=== PATIENT | female | born 1940 | race Caucasian/White ===

== ENCOUNTER → 2016-12-29 | Outpatient (CLI) | payer MEDICARE, OTHER ==
--- NOTE | 2017-01-02 12:13 | XCELERA REPORT ---
[address] [address] Lower Extremity Arterial Evaluation Name: VAISHNAVI CHAVEZ Age: 76 yrs Gender: Female : 1940 Patient Status: Outpatient Patient Location: Study Date: 12/29/2016 11:23 AM Procedure: A color flow and duplex scan of the lower extremity arteries was performed bilaterally with velocity and waveform anaylsis. Ankle brachial indicies performed. Reason For Study: PVD I73.9 Ordering Physician: SONNY MARTÍNEZ Performed By: Mauro Yanez Measurements and Calculations Right Left RUCHING MACHINE OPERATOR PSV 168.5 168.5 cm/sec Prox PFA PSV -206.5 -109.1 cm/sec Prox SFA PSV 432.8 cm/sec Dist SFA PSV -106.9 -115.7 cm/sec Prox Pop A PSV 59.8 78.3 cm/sec Dist GERARDO PSV 56.6 60.9 cm/sec Dist EXECUTIVE RELATIONS SPECIALIST PSV 51.3 52.3 cm/sec Too Pedis PSV 54.1 45.2 cm/sec Right Side Arterial Evaluation Normal velocity, waveform and triphasic flow are present, in the Common Femoral artery. Then Biphasic with adequate velocity to the infrageniculate vessels. The ankle-brachial index is 0.96. 20-49 % stenosis is noted at the Femoral artery. Some sequential disease. Left Side Arterial Evaluation Normal velocity, waveform and triphasic flow are present, in the Common Femoral artery. Then Biphasic with adequate velocity in the Femoral. Distal Femoral artery stenosis, with velocity of 4.3 cms/sec. Monophasic with fairly good velocity in the infrageniculate vessels. The ankle-brachial index was not done. 50-99 % stenosis is noted at the Femoral artery. Interpretation Summary Moderate hemodynamically significant lesions in the right lower extremity only, on duplex imaging, at rest. Severe hemodynamically significant lesions in the left lower extremity only, on duplex imaging, at rest. : SONNY MARTÍNEZ > Max Mejia
== END ==
LOC: SP 11:00
PROVIDERS: ATTEND Internal Medicine
DX: I73.9 Peripheral vascular disease, unspecified (principal)
CPT/HCPCS: 93925

== ENCOUNTER → 2017-03-01 | Outpatient (CLI) | payer MEDICARE, OTHER ==
[2017-03-01 11:57] LABS: ABSOLUTE BASOPHILS # (AUTO) 0.1 10^3/uL (0.0-0.2); ABSOLUTE EOSINOPHILS # (AUTO) 0.2 10^3/uL (0.0-0.6); ABSOLUTE LYMPHOCYTES (AUTO) 2.4 10^3/uL (0.5-4.7); ABSOLUTE MONOCYTES (AUTO) 0.5 10^3/uL (0.1-1.4); ABSOLUTE NEUT (AUTO) 8.6 10^3/uL (1.7-8.2); BASOPHILS % (AUTO) 0.9 % (0-2); HEMOGLOBIN 9.9 g/dL (12.0-15.5); HGB HCT DIFFERENCE 0.7; LYMPHOCYTES % (AUTO) 20.1 % (13-45); MEAN CORPUSCULAR HEMOGLOBIN 31.2 pg (27.0-33.4); MEAN CORPUSCULAR HGB CONC 34.2 g/dL (32.0-36.0); MEAN CORPUSCULAR VOLUME 91 fl (80-97); MONOCYTES % (AUTO) 4.5 % (3-13); RED BLOOD COUNT 3.17 10^6/uL (3.72-5.28); RED CELL DISTRIBUTION WIDTH 13.4 % (11.5-14.0); SEGMENTED NEUTROPHILS % (AUTO) 72.5 % (42-78); WHITE BLOOD COUNT 11.9 10^3/uL (4.0-10.5)
[2017-03-01 12:22] LABS: ALANINE AMINOTRANSFERASE 27 U/L (9-52); ALBUMIN 3.7 g/dL (3.5-5.0); ALKALINE PHOSPHATASE 102 U/L (38-126); ANION GAP 11 (5-19); ASPARTATE AMINO TRANSFERASE 19 U/L (14-36); BILIRUBIN,DIRECT 0.3 mg/dL (0.0-0.4); BILIRUBIN,TOTAL 0.4 mg/dL (0.2-1.3); BLOOD UREA NITROGEN 20 mg/dL (7-20); CALCIUM 9.5 mg/dL (8.4-10.2); CARBON DIOXIDE 31 mmol/L (22-30); CHLORIDE 100 mmol/L (98-107); CREATININE RESULT 1.38 mg/dL (0.52-1.25); GLUCOSE 109 mg/dL (75-110); SODIUM 141.8 mmol/L (137-145); TOTAL PROTEIN 6.7 g/dL (6.3-8.2)
[2017-03-01 12:25] LABS: APPEARANCE,URINE SLIGHTLY-CLOUDY; BILIRUBIN,URINE NEGATIVE (NEGATIVE); GLUCOSE, URINE NEGATIVE (NEGATIVE); KETONES,URINE NEGATIVE (NEGATIVE); LEUKOCYTE ESTERASE,URINE NEGATIVE (NEGATIVE); NITRITE,URINE NEGATIVE (NEGATIVE); PROTEIN,URINE NEGATIVE (NEGATIVE); URINE SPECIFIC GRAVITY 1.012; UROBILINOGEN,URINE NEGATIVE mg/dL (<2.0)
[2017-03-02 12:38] LABS: CREATININE URINE 99.8 mg/dL (Not Estab.)
== END ==
LOC: LAB 10:39
PROVIDERS: ATTEND Internal Medicine Nephrology
DX: I12.9 Hypertensive chronic kidney disease with stage 1 through stage 4 chronic kidney disease, or unspecified chronic kidney disease (principal); N18.3 Chronic kidney disease, stage 3 (moderate); I50.9 Heart failure, unspecified; E11.9 Type 2 diabetes mellitus without complications
CPT/HCPCS: 36415; 80053; 81001; 82570; 82607; 84156; 84443; 85025

== ENCOUNTER → 2017-03-31 | Outpatient (CLI) | payer MEDICARE, OTHER | LOC: RAD 11:05 | PROVIDERS: ATTEND Internal Medicine Nephrology | DX: I12.9 Hypertensive chronic kidney disease with stage 1 through stage 4 chronic kidney disease, or unspecified chronic kidney disease (principal); N18.3 Chronic kidney disease, stage 3 (moderate); I50.9 Heart failure, unspecified; N28.1 Cyst of kidney, acquired | CPT/HCPCS: 76770 ==

== ENCOUNTER → 2017-06-10 | Outpatient (CLI) | payer MEDICARE, OTHER ==
[2017-06-10 11:38] LABS: HEMATOCRIT 31.8 % (36.0-47.0); HEMOGLOBIN 10.7 g/dL (12.0-15.5); HGB HCT DIFFERENCE 0.3; MEAN CORPUSCULAR HEMOGLOBIN 30.9 pg (27.0-33.4); MEAN CORPUSCULAR HGB CONC 33.6 g/dL (32.0-36.0); MEAN CORPUSCULAR VOLUME 92 fl (80-97); RED BLOOD COUNT 3.46 10^6/uL (3.72-5.28); RED CELL DISTRIBUTION WIDTH 14.2 % (11.5-14.0); WHITE BLOOD COUNT 11.2 10^3/uL (4.0-10.5)
[2017-06-10 13:17] LABS: ANION GAP 14 (5-19); BLOOD UREA NITROGEN 19 mg/dL (7-20); CALCIUM 10.3 mg/dL (8.4-10.2); CARBON DIOXIDE 28 mmol/L (22-30); CHLORIDE 109 mmol/L (98-107); CREATININE RESULT 1.36 mg/dL (0.52-1.25); GLUCOSE 137 mg/dL (75-110); POTASSIUM 4.6 mmol/L (3.6-5.0); SODIUM 150.9 mmol/L (137-145)
[2017-06-11 11:38] LABS: MICROALBUMIN URINE 65.5 ug/mL (Not Estab.)
[2017-06-13 14:39] LABS: A/G RATIO 1.1 (0.7-1.7); ALBUMIN 2 3.3 g/dL (2.9-4.4); ALPHA-1-GLOBULIN 2 0.2 g/dL (0.0-0.4); GAMMA GLOBULIN 0.8 g/dL (0.4-1.8); PROTEIN TOTAL SERUM 6.3 g/dL (6.0-8.5)
== END ==
LOC: LAB 11:09
PROVIDERS: ATTEND Internal Medicine Nephrology
DX: N18.3 Chronic kidney disease, stage 3 (moderate) (principal); E11.9 Type 2 diabetes mellitus without complications; I50.9 Heart failure, unspecified; D64.9 Anemia, unspecified
CPT/HCPCS: 36415; 80048; 82043; 82570; 82728; 83540; 83550; 84165; 84443; 85027

== ENCOUNTER → 2017-06-13 | Outpatient (CLI) | payer MEDICARE, OTHER ==
[2017-06-13 13:26] LABS: ANION GAP 9 (5-19); BLOOD UREA NITROGEN 16 mg/dL (7-20); CALCIUM 9.8 mg/dL (8.4-10.2); CARBON DIOXIDE 30 mmol/L (22-30); CHLORIDE 103 mmol/L (98-107); CREATININE RESULT 1.14 mg/dL (0.52-1.25); GLUCOSE 138 mg/dL (75-110); POTASSIUM 4.9 mmol/L (3.6-5.0); SODIUM 141.8 mmol/L (137-145)
== END ==
LOC: OD 12:06
PROVIDERS: ATTEND Internal Medicine Nephrology
DX: E87.0 Hyperosmolality and hypernatremia (principal)
CPT/HCPCS: 36415; 80048

== ENCOUNTER → 2017-07-25 | Outpatient (CLI) | payer MEDICARE, OTHER ==
[2017-07-25 15:05] LABS: HEMATOCRIT 32.5 % (36.0-47.0); HEMOGLOBIN 10.7 g/dL (12.0-15.5); HGB HCT DIFFERENCE -0.4; MEAN CORPUSCULAR HEMOGLOBIN 30.6 pg (27.0-33.4); MEAN CORPUSCULAR HGB CONC 32.9 g/dL (32.0-36.0); MEAN CORPUSCULAR VOLUME 93 fl (80-97); RED CELL DISTRIBUTION WIDTH 14.4 % (11.5-14.0); WHITE BLOOD COUNT 9.1 10^3/uL (4.0-10.5)
[2017-07-25 15:27] LABS: ANION GAP 10 (5-19); BLOOD UREA NITROGEN 20 mg/dL (7-20); CALCIUM 9.9 mg/dL (8.4-10.2); CARBON DIOXIDE 28 mmol/L (22-30); CHLORIDE 103 mmol/L (98-107); CREATININE RESULT 1.23 mg/dL (0.52-1.25); GLUCOSE 108 mg/dL (75-110); POTASSIUM 4.4 mmol/L (3.6-5.0); SODIUM 140.5 mmol/L (137-145)
== END ==
LOC: LAB 14:32
PROVIDERS: ATTEND Internal Medicine Nephrology
DX: D64.9 Anemia, unspecified (principal); I12.9 Hypertensive chronic kidney disease with stage 1 through stage 4 chronic kidney disease, or unspecified chronic kidney disease; E11.22 Type 2 diabetes mellitus with diabetic chronic kidney disease; N18.3 Chronic kidney disease, stage 3 (moderate)
CPT/HCPCS: 36415; 80048; 82607; 82728; 83540; 83550; 85027

== ENCOUNTER → 2017-09-22 | Outpatient (CLI) | payer MEDICARE, OTHER ==
[2017-09-22 13:47] LABS: HEMATOCRIT 33.2 % (36.0-47.0); HEMOGLOBIN 11.4 g/dL (12.0-15.5); MEAN CORPUSCULAR HEMOGLOBIN 31.1 pg (27.0-33.4); MEAN CORPUSCULAR HGB CONC 34.4 g/dL (32.0-36.0); MEAN CORPUSCULAR VOLUME 90 fl (80-97); RED BLOOD COUNT 3.67 10^6/uL (3.72-5.28); RED CELL DISTRIBUTION WIDTH 14.1 % (11.5-14.0); WHITE BLOOD COUNT 10.1 10^3/uL (4.0-10.5)
[2017-09-22 13:53] LABS: APPEARANCE,URINE CLOUDY; BILIRUBIN,URINE NEGATIVE (NEGATIVE); GLUCOSE, URINE NEGATIVE (NEGATIVE); KETONES,URINE NEGATIVE (NEGATIVE); LEUKOCYTE ESTERASE,URINE MODERATE (NEGATIVE); NITRITE,URINE NEGATIVE (NEGATIVE); PROTEIN,URINE 30 mg/dL (NEGATIVE); URINE SPECIFIC GRAVITY 1.024
[2017-09-22 14:08] LABS: ANION GAP 11 (5-19); BLOOD UREA NITROGEN 22 mg/dL (7-20); CALCIUM 10.1 mg/dL (8.4-10.2); CARBON DIOXIDE 31 mmol/L (22-30); CHLORIDE 101 mmol/L (98-107); GLUCOSE 93 mg/dL (75-110); POTASSIUM 4.9 mmol/L (3.6-5.0)
== END ==
LOC: LAB 13:20
PROVIDERS: ATTEND Physician Assistant Medical
DX: I12.9 Hypertensive chronic kidney disease with stage 1 through stage 4 chronic kidney disease, or unspecified chronic kidney disease (principal); N18.3 Chronic kidney disease, stage 3 (moderate); D64.9 Anemia, unspecified; E11.9 Type 2 diabetes mellitus without complications
CPT/HCPCS: 36415; 80048; 81001; 85027

== ENCOUNTER → 2017-11-24 | Outpatient (CLI) | payer MEDICARE, OTHER ==
[2017-11-24 14:17] LABS: HEMATOCRIT 33.2 % (36.0-47.0); HEMOGLOBIN 11.3 g/dL (12.0-15.5); MEAN CORPUSCULAR HEMOGLOBIN 31.5 pg (27.0-33.4); MEAN CORPUSCULAR VOLUME 93 fl (80-97); PLATELET COUNT 213 10^3/uL (150-450); RED BLOOD COUNT 3.58 10^6/uL (3.72-5.28); RED CELL DISTRIBUTION WIDTH 14.1 % (11.5-14.0); WHITE BLOOD COUNT 9.5 10^3/uL (4.0-10.5)
[2017-11-24 14:24] LABS: APPEARANCE,URINE SLIGHTLY-CLOUDY; BILIRUBIN,URINE NEGATIVE (NEGATIVE); COLOR,URINE YELLOW; GLUCOSE, URINE NEGATIVE (NEGATIVE); KETONES,URINE NEGATIVE (NEGATIVE); LEUKOCYTE ESTERASE,URINE TRACE (NEGATIVE); NITRITE,URINE NEGATIVE (NEGATIVE); PROTEIN,URINE NEGATIVE (NEGATIVE); URINE SPECIFIC GRAVITY 1.006; UROBILINOGEN,URINE NEGATIVE mg/dL (<2.0)
[2017-11-24 14:37] LABS: ANION GAP 10 (5-19); BLOOD UREA NITROGEN 16 mg/dL (7-20); CALCIUM 10.3 mg/dL (8.4-10.2); CARBON DIOXIDE 32 mmol/L (22-30); CHLORIDE 103 mmol/L (98-107); GLUCOSE 113 mg/dL (75-110); POTASSIUM 4.2 mmol/L (3.6-5.0); SODIUM 144.7 mmol/L (137-145)
== END ==
LOC: LAB 13:46
PROVIDERS: ATTEND Physician Assistant Medical
DX: E11.22 Type 2 diabetes mellitus with diabetic chronic kidney disease (principal); I12.9 Hypertensive chronic kidney disease with stage 1 through stage 4 chronic kidney disease, or unspecified chronic kidney disease; N18.3 Chronic kidney disease, stage 3 (moderate); D64.9 Anemia, unspecified
CPT/HCPCS: 36415; 80048; 81001; 85027

== ENCOUNTER → 2018-04-18 | Outpatient (CLI) | payer MEDICARE, OTHER ==
--- NOTE | 2018-04-18 14:29 | XCELERA REPORT ---
[address] [address] Lower Extremity Venous Evaluation Name: VAISHNAVI CHAVEZ Age: 78 yrs Gender: Female : 1940 Patient Status: Outpatient Patient Location: Study Date: 04/18/2018 12:00 PM Procedure: Color flow and duplex imaging of the veins of the left lower extremity as well as the right Common Femoral vein. Reason For Study: LLE SWELLING Ordering Physician: SONNY MARTÍNEZ Performed By: Keo Montes Right Sided Venous Evaluation The right common femoral vein is fully compressible. Spontaneous and phasic flow is present in the right common femoral vein. Left Sided Venous Evaluation Normal vessel filling wall to wall, compression and augmentation as well as Colour flow down to the infrageniculate veins. Interpretation Summary No duplex evidence of DVT or obstruction in the left lower extremity nor in the right Common Femoral vein. : SONNY MARTÍNEZ > Max Mejia
== END ==
LOC: SP 11:49
PROVIDERS: ATTEND Internal Medicine
DX: R22.42 Localized swelling, mass and lump, left lower limb (principal)
CPT/HCPCS: 93971

== ENCOUNTER → 2018-05-26 | Outpatient (CLI) | payer MEDICARE, OTHER ==
[2018-05-26 12:20] LABS: HEMATOCRIT 35.3 % (36.0-47.0); MEAN CORPUSCULAR HEMOGLOBIN 31.4 pg (27.0-33.4); MEAN CORPUSCULAR HGB CONC 33.9 g/dL (32.0-36.0); MEAN CORPUSCULAR VOLUME 93 fl (80-97); PLATELET COUNT 190 10^3/uL (150-450); RED BLOOD COUNT 3.82 10^6/uL (3.72-5.28); RED CELL DISTRIBUTION WIDTH 13.1 % (11.5-14.0); WHITE BLOOD COUNT 11.7 10^3/uL (4.0-10.5)
[2018-05-26 12:47] LABS: ANION GAP 13 (5-19); BLOOD UREA NITROGEN 18 mg/dL (7-20); CALCIUM 9.4 mg/dL (8.4-10.2); CARBON DIOXIDE 30 mmol/L (22-30); CHLORIDE 99 mmol/L (98-107); GLUCOSE 126 mg/dL (75-110); PHOSPHORUS 3.8 mg/dL (2.5-4.5); POTASSIUM 4.2 mmol/L (3.6-5.0); SODIUM 142.1 mmol/L (137-145)
[2018-05-26 12:47] LABS: APPEARANCE,URINE CLOUDY; BILIRUBIN,URINE NEGATIVE (NEGATIVE); COLOR,URINE YELLOW; GLUCOSE, URINE NEGATIVE (NEGATIVE); KETONES,URINE NEGATIVE (NEGATIVE); LEUKOCYTE ESTERASE,URINE TRACE (NEGATIVE); NITRITE,URINE NEGATIVE (NEGATIVE); PROTEIN,URINE NEGATIVE (NEGATIVE); URINE SPECIFIC GRAVITY 1.017
== END ==
LOC: LAB 11:55
PROVIDERS: ATTEND Internal Medicine Nephrology
DX: I12.9 Hypertensive chronic kidney disease with stage 1 through stage 4 chronic kidney disease, or unspecified chronic kidney disease (principal); N18.3 Chronic kidney disease, stage 3 (moderate); D64.9 Anemia, unspecified; E11.9 Type 2 diabetes mellitus without complications
CPT/HCPCS: 36415; 80048; 81001; 83970; 84100; 85027

== ENCOUNTER 2018-08-20 10:16 | Inpatient (IN) | payer MEDICARE, OTHER ==
--- NOTE | 2018-08-20 10:34 | ER Document Report ---
ED Medical Screen (RME) - General Chief Complaint: Breathing Difficulty Stated Complaint: DIFFICULTY BREATHING/COUGH Time Seen by Provider: 08/20/18 10:30 Mode of Arrival: Wheelchair Information source: Patient, Relative, [facility] Records Notes: 78-year-old female with COPD on home O2 at night 3 L (still using tobacco), hypertension, chronic kidney disease, previous history of DVT, on Xarelto, presents with complaint of shortness of breath, productive cough, myalgia that started 1 day prior to arrival. I have greeted and performed a rapid initial assessment of this patient. A comprehensive ED assessment and evaluation of the patient, analysis of test results and completion of medical decision making process we will be contacted by additional ED providers. PHYSICAL EXAMINATION: Vital signs reviewed-tachypneic GENERAL: Ill-appearing, mild distress LUNGS: Dyspneic, coarse breath sounds, wheezing NEUROLOGICAL: Alert, awake TRAVEL OUTSIDE OF THE [place] IN LAST 30 DAYS: No - HPI Onset: Yesterday Onset/Duration: Sudden Quality of pain: Burning Severity: Moderate Associated Symptoms: Cough (productive), Hurts to breath, Shortness of breath. denies: Fever Exacerbated by: Movement, Walking, Coughing, Deep breathing Relieved by: Denies Similar symptoms previously: Yes Recently seen / treated by doctor: No - Related Data Smoking: Cigarettes Frequency of alcohol use: None Drug Abuse: None Allergies/Adverse Reactions: No Known Allergies Allergy (Verified 10/31/16 09:22) Past Medical History - Past Medical History Cardiac Medical History: Reports: Hx DVT, Hx Hypercholesterolemia, Hx Hypertension - medicated Denies: Hx Heart Attack Pulmonary Medical History: Reports: Hx COPD Denies: Hx Asthma Neurological Medical History: Denies: Hx Cerebrovascular Accident, Hx Seizures GI Medical History: Reports: Hx Gastroesophageal Reflux Disease. Denies: Hx Hepatitis, Hx Hiatal Hernia, Hx Ulcer Psychiatric Medical History: Reports: Hx Depression Infectious Medical History: Denies: Hx Hepatitis Past Surgical History: Denies: Hx Hysterectomy, Hx Mastectomy, Hx Open Heart Surgery, Hx Pacemaker - Immunizations Hx Diphtheria, Pertussis, Tetanus Vaccination: Yes Physical Exam - Vital signs Vitals: Temp Pulse Resp BP Pulse Ox 98.1 F 91 22 H 109/54 L 96 08/20/18 10:20 08/20/18 10:20 08/20/18 10:20 08/20/18 10:20 08/20/18 10:20 Course - Vital Signs Vital signs: Temp Pulse Resp BP Pulse Ox 98.1 F 91 22 H 109/54 L 96 08/20/18 10:20 08/20/18 10:20 08/20/18 10:20 08/20/18 10:20 08/20/18 10:20 Doctor's Discharge - Discharge Referrals: Elier MAHMOOD MD [Primary Care Provider] - Follow up as needed
[2018-08-20] MEDS ORDERED: IPRATROPIUM/ALBUTEROL 0.5-2.5 MG/3 ML AMPUL NEB ONE ×4 (10:41→14:40)
[2018-08-20] MEDS ORDERED: METHYLPREDNISOLONE INJ 125 MG/2 ML SDV IV ONE (10:42)
[2018-08-20 11:15] LABS: ABSOLUTE BASOPHILS # (AUTO) 0.1 10^3/uL (0.0-0.2); ABSOLUTE LYMPHOCYTES (AUTO) 1.3 10^3/uL (0.5-4.7); ABSOLUTE MONOCYTES (AUTO) 0.6 10^3/uL (0.1-1.4); ABSOLUTE NEUT (AUTO) 10.1 10^3/uL (1.7-8.2); BASOPHILS % (AUTO) 0.6 % (0-2); EOSINOPHILS % (AUTO) 0.1 % (0-6); HEMATOCRIT 33.3 % (36.0-47.0); HEMOGLOBIN 11.6 g/dL (12.0-15.5); LYMPHOCYTES % (AUTO) 11.1 % (13-45); MEAN CORPUSCULAR HEMOGLOBIN 31.8 pg (27.0-33.4); MEAN CORPUSCULAR HGB CONC 34.8 g/dL (32.0-36.0); MEAN CORPUSCULAR VOLUME 92 fl (80-97); MONOCYTES % (AUTO) 5.2 % (3-13); PLATELET COUNT 164 10^3/uL (150-450); RED BLOOD COUNT 3.64 10^6/uL (3.72-5.28); RED CELL DISTRIBUTION WIDTH 13.1 % (11.5-14.0); TOTAL CELLS COUNTED % (AUTO) 100 %; WHITE BLOOD COUNT 12.1 10^3/uL (4.0-10.5)
[2018-08-20 11:18] LABS: VENOUS BLOOD BASE EXCESS 1.9 mmol/L; VENOUS BLOOD HCO3 26.6 mmol/L (20-32); VENOUS BLOOD PCO2 41.6 mmHg (35-63); VENOUS BLOOD PH 7.42 (7.30-7.42)
--- NOTE | 2018-08-20 11:21 | ER Document Report ---
ED Respiratory Problem - General Chief Complaint: Breathing Difficulty Stated Complaint: DIFFICULTY BREATHING/COUGH Time Seen by Provider: 08/20/18 10:30 Mode of Arrival: Wheelchair Notes: Patient says that she is having difficulty breathing over the past 24 hours. She has a history of COPD and is on home oxygen that she wears at 3 L at bedtime , but does not use it during the day. She says that she has developed some cough and congestion in the recent days. Patient still smokes cigarettes, although she has not had one for 24 hours. Has not noted any fever. Previous history of DVT, on Xarelto. TRAVEL OUTSIDE OF THE [place] IN LAST 30 DAYS: No - Related Data Allergies/Adverse Reactions: No Known Allergies Allergy (Verified 10/31/16 09:22) Past Medical History - General Information source: Patient, Relative, [facility] Records - Social History Smoking Status: Current Every Day Smoker Frequency of alcohol use: None Drug Abuse: None Family History: Reviewed & Not Pertinent Patient has suicidal ideation: No Patient has homicidal ideation: No - Past Medical History Cardiac Medical History: Reports: Hx DVT, Hx Hypercholesterolemia, Hx Hypertension - medicated Denies: Hx Heart Attack Pulmonary Medical History: Reports: Hx COPD Denies: Hx Asthma GI Medical History: Reports: Hx Gastroesophageal Reflux Disease Psychiatric Medical History: Reports: Hx Depression Infectious Medical History: Denies: Hx Hepatitis - Immunizations Hx Diphtheria, Pertussis, Tetanus Vaccination: Yes Hx Pneumococcal Vaccination: 11/14/09 Review of Systems - Review of Systems Notes: REVIEW OF SYSTEMS: CONSTITUTIONAL : Denies fever. EENT: Denies eye, ear, nose or mouth or throat pain or other symptoms. CARDIOVASCULAR: Denies chest pain. RESPIRATORY: See HPI. GASTROINTESTINAL: Denies abdominal pain or nausea, vomiting, or diarrhea. GENITOURINARY: Denies difficulty or painful urinating, urinary frequency, blood in urine. MUSCULOSKELETAL: Denies back or neck pain. Denies joint pain or swelling. SKIN: Denies rash or skin lesions. NEUROLOGICAL: Denies LOC or altered mental status. Denies headache. Denies sensory loss or motor deficits. ALL OTHER SYSTEMS REVIEWED AND NEGATIVE. Physical Exam - Vital signs Vitals: Temp Pulse Resp BP Pulse Ox 98.1 F 91 22 H 109/54 L 96 08/20/18 10:20 08/20/18 10:20 08/20/18 10:20 08/20/18 10:20 08/20/18 10:20 Interpretation: Normal - Notes Notes: PHYSICAL EXAMINATION: GENERAL: Well-appearing, anxious, wheezes audible to the examiner's naked ear. HEAD: Atraumatic, normocephalic. EYES: Pupils equal round and reactive to light, extraocular movements intact. ENT: oropharynx clear without exudates. Moist mucous membranes. NECK: Normal range of motion, supple. LUNGS: Diffuse expiratory wheezes bilaterally and symmetrical. HEART: Regular rate and rhythm without murmurs. ABDOMEN: Soft, nontender. No guarding or rebound. No masses. BACK: No tenderness throughout entire back. EXTREMITIES: Normal range of motion without pain. Negative Homans bilaterally. No calf tenderness bilaterally. NEUROLOGICAL: Normal speech. Normal sensory, motor, and reflex exams. Awake, alert, and oriented x3. Cranial nerves normal. PSYCH: Normal mood, normal affect. SKIN: Warm, dry, no rashes. Course - Re-evaluation Re-evalutation: 08/20/18 14:33 Patient was given 3 DuoNeb nebulizers plus Solu-Medrol 125 mg IV at one point, patient seem to fatigue and we tried to apply a BiPAP, but she could not tolerate the mask. We gave her a very low dose of Ativan 0.5 mg IV to sedate her and her breathing calmed. Spoke with Dr. Mccoy, patient's primary care provider, and he will admit her for further inpatient care. - Vital Signs Vital signs: Temp Pulse Resp BP Pulse Ox 98.1 F 91 15 123/70 94 08/20/18 10:20 08/20/18 10:20 08/20/18 12:01 08/20/18 12:00 08/20/18 12:01 - Laboratory Result Diagrams: 08/20/18 10:56 08/20/18 10:56 Laboratory results interpreted by me: 08/20/18 08/20/18 08/20/18 10:56 10:56 11:58 WBC 12.1 H RBC 3.64 L Hgb 11.6 L Hct 33.3 L Seg Neutrophils % 83.0 H Lymphocytes % 11.1 L Absolute Neutrophils 10.1 H Glucose 134 H Lactic Acid 2.8 H - Diagnostic Test Radiology reviewed: Image reviewed, Reports reviewed - Chest x-ray without any acute findings. Some basilar atelectasis on the left. Critical Care Note - Critical Care Note Total time excluding time spent on procedures (mins): 40 Discharge - Discharge Clinical Impression: COPD exacerbation Condition: Stable Disposition: ADMITTED INPATIENT [facility] Unit Admitted: Telemetry Referrals: Elier MAHMOOD MD [Primary Care Provider] - Follow up as needed
[2018-08-20 11:42] LABS: ALANINE AMINOTRANSFERASE 29 U/L (9-52); ALBUMIN 3.5 g/dL (3.5-5.0); ALKALINE PHOSPHATASE 93 U/L (38-126); ANION GAP 11 (5-19); ASPARTATE AMINO TRANSFERASE 25 U/L (14-36); BILIRUBIN,DIRECT 0.2 mg/dL (0.0-0.4); BILIRUBIN,TOTAL 0.6 mg/dL (0.2-1.3); BLOOD UREA NITROGEN 15 mg/dL (7-20); CALCIUM 9.3 mg/dL (8.4-10.2); CARBON DIOXIDE 26 mmol/L (22-30); CHLORIDE 103 mmol/L (98-107); GLUCOSE 134 mg/dL (75-110); POTASSIUM 3.9 mmol/L (3.6-5.0); SODIUM 139.7 mmol/L (137-145); TOTAL PROTEIN 6.3 g/dL (6.3-8.2)
[2018-08-20] MEDS ORDERED: CEFTRIAXONE INJ 1000 MG VIAL IV ONE (12:10)
--- NOTE | 2018-08-20 12:19 | RADIOLOGY REPORT (SQ) ---
EXAM DESCRIPTION: CHEST 2 VIEWS COMPLETED DATE/TIME: 08/20/2018 11:52 am REASON FOR STUDY: sob COMPARISON: None. EXAM PARAMETERS: NUMBER OF VIEWS: two views TECHNIQUE: Digital Frontal and Lateral radiographic views of the chest acquired. RADIATION DOSE: NA LIMITATIONS: none FINDINGS: LUNGS AND PLEURA: Discoid atelectasis left mid lung field. Right lung clear. MEDIASTINUM AND HILAR STRUCTURES: No masses or contour abnormalities. HEART AND VASCULAR STRUCTURES: Borderline cardiac size. Aortic atherosclerosis. BONES: Dorsal spondylosis seen. HARDWARE: None in the chest. OTHER: No other significant finding. IMPRESSION: Borderline cardiac size. Discoid atelectasis left mid lung field. Otherwise, no acute disease. TECHNICAL DOCUMENTATION: JOB ID: [id number] [employer]- All Rights Reserved Reading location - IP/workstation name: [email or web address]
[2018-08-20] MEDS ORDERED: LORAZEPAM INJ 2 MG/1 ML VIAL IV ONE (12:52)
[2018-08-20] MEDS ORDERED: GLUCAGON,HUMAN RECOMB 1 MG INJ IM PRN (15:39)
[2018-08-20] MEDS ORDERED: DEXTROSE 40% GEL 15 GM TUBE PO PRN ×2 (15:39)
[2018-08-20] MEDS ORDERED: DEXTROSE 50%-WATER 25 GM/50 ML DISP.SYRIN IV PRN ×2 (15:39)
[2018-08-20] MEDS: LEVOFLOXACIN 750 MG/D5W RTU 750 MG/150 ML RTUPB IV SCH (16:17)
[2018-08-20] MEDS: METHYLPREDNISOLONE INJ 125 MG/2 ML SDV IV SCH ×2 (16:17→21:56)
[2018-08-20 16:32] LABS: INTERNATIONAL RATION (INR) 1.05; PARTIAL THROMBOPLASTIN TIME 32.7 SEC (23.5-35.8); PROTHROMBIN TIME 14.3 SEC (11.4-15.4)
[2018-08-20 16:42] LABS: LIPASE 76.2 U/L (23-300); PHOSPHORUS 3.2 mg/dL (2.5-4.5)
[2018-08-20 16:55] LABS: CREATINE KINASE MB 1.53 ng/mL (<4.55); TROPONIN I 0.024 ng/mL
[2018-08-20 16:58] LABS: FREE T4 (FREE THYROXINE) 1.09 ng/dL (0.78-2.19)
[2018-08-20 17:11] LABS: ARTERIAL BLOOD BASE EXCESS -4.3 mmol/L; ARTERIAL BLOOD H2CO3 0.81 mmol/L (1.05-1.35); ARTERIAL BLOOD HCO3 18.4 mmol/L (20-24); ARTERIAL BLOOD O2 SATURATION 96.9 % (94-98); ARTERIAL BLOOD PH 7.45 (7.35-7.45); ARTERIAL BLOOD PO2 83.9 mmHg (80-100); ARTERIAL BLOOD TOTAL CO2 19.3 mmol/L (21-25)
[2018-08-20 17:12] LABS: THYROID STIMULATING HORMONE 0.36 uIU/mL (0.47-4.68)
[2018-08-20 17:13] LABS: ARTERIAL BLOOD FIO2 28%
[2018-08-20] MEDS: INSULIN LISPRO 100 UNIT/ML 3 ML VIAL SUBCUT PRN (17:54)
--- NOTE | 2018-08-20 18:22 | RADIOLOGY REPORT (SQ) ---
EXAM DESCRIPTION: CT CHEST WITHOUT COMPLETED DATE/TIME: 08/20/2018 5:27 pm REASON FOR STUDY: pneumonia COMPARISON: Two-view chest 08/20/2018 CT angio chest 02/03/2015 TECHNIQUE: CT scan performed of the chest without intravenous contrast. Images reviewed with lung, soft tissue and bone windows. Reconstructed coronal and sagittal MPR images reviewed. All images st ored on PACS. All CT scanners at this facility use dose modulation, iterative reconstruction, and/or weight based d osing when appropriate to reduce radiation dose to as low as reasonably achievable (ALARA). [facility]: Dose Right [facility]: CareDose [facility]: Dose Right [facility]: Teradose 4D [facility]: Smart Event[employer]z RADIATION DOSE: CT Rad equipment meets quality standard of care and radiation dose reduction techniq ues were employed. CTDIvol: 9.9 mGy. DLP: 353 mGy-cm. mGy. LIMITATIONS: No technical limitations. FINDINGS: LUNGS AND PLEURA: Minimal bandlike atelectasis or scarring in the lingula. No fluffy alveolar infiltrates worrisome for edema or pneumonia. No pleural effusions. No pneumothorax. HILAR AND MEDIASTINAL STRUCTURES: Calcified right hilar lymph nodes, unchanged. HEART AND VASCULAR STRUCTURES: Marked enlargement of the pulmonary artery, worrisome for pulmonary hy pertension. Heavily calcified mitral annulus and aortic valve. Heavily calcified LAD coronary arter y. No pericardial effusion. No cardiomegaly UPPER ABDOMEN: Small hiatal hernia. Stones in the gallbladder THYROID AND OTHER SOFT TISSUES: No masses. No adenopathy. BONES: No acute findings HARDWARE: None in the chest. OTHER: No other significant findings. IMPRESSION: Lingular bandlike atelectasis. Prominent main pulmonary artery worrisome for pulmonary hypertension. Calcified aortic and mitral va lves, heavy coronary artery calcifications. TECHNICAL DOCUMENTATION: JOB ID: [id number] Quality ID # [id number]: Final reports with documentation of one or more dose reduction techniques (e.g., Au tomated exposure control, adjustment of the mA and/or kV according to patient size, use of iterative reconstruction technique) 2010 [employer]- All Rights Reserved Reading location - IP/workstation name: [email or web address]
[2018-08-20] MEDS: IPRATROPIUM/ALBUTEROL 0.5-2.5 MG/3 ML AMPUL NEB PRN (18:46)
--- NOTE | 2018-08-20 19:11 | EKG REPORT ---
SEVERITY:- BORDERLINE ECG - SINUS RHYTHM LEFT AXIS DEVIATION MINIMAL ST DEPRESSION, ANTERIOR LEADS BORDERLINE PROLONGED QT INTERVAL : Confirmed by: Nura Marcial 20-Aug-2018 19:10:58
--- NOTE | 2018-08-20 19:11 | EKG REPORT ---
SEVERITY:- OTHERWISE NORMAL ECG - SINUS RHYTHM LEFT AXIS DEVIATION : Confirmed by: Nura Marcial 20-Aug-2018 19:11:07
--- NOTE | 2018-08-20 19:59 | PDOC H&P ---
History of Present Illness Admission Date/PCP: 08/20/18 14:50 SONNY MARTÍNEZ MD History of Present Illness: VAISHNAVI CHAVEZ is a 78 year old female, she has a history of type 2 diabetes mellitus, chronic kidney disease stage III, peripheral vascular disease, deep vein thrombosis on chronic anticoagulation, COPD, a recalcitrant smoker, she continues to smoke cigarette despite complications of tobacco use, she has significant vascular disease including peripheral vascular disease she is a diabetic, she was counseled multiple times of the danger of smoking also offered smoking cessation management intervention including use of medication, nicotine patch etc. but she continues to smoke. She came to the emergency room today for evaluation of shortness of breath, in the emergency room a chest x- ray was done which was negative I requested for CT chest on this patient demonstrated minimal bandlike atelectasis there is no infiltrate worrisome for pneumonia or edema also found was marked enlargement of the pulmonary artery worrisome for pulmonary hypertension. ABG on FiO2 of the 28%, pH 7.45, PCO2 27 PO2 83, bicarbonate 18.4 she also have lactic acidosis. She is very upset she was wheezing she was crying because she cannot breathe Past Medical History Cardiac Medical History: Reports: DVT, Hyperlipidema, Hypertension - medicated Pulmonary Medical History: Reports: Chronic Obstructive Pulmonary Disease (COPD) Endocrine Medical History: Reports: Diabetes Mellitus Type 2 Renal/ Medical History: Reports: Chronic Kidney Disease, Other - Chronic kidney disease stage III GI Medical History: Reports: Gastroesophageal Reflux Disease Psychiatric Medical History: Reports: Depression Social History Smoking Status: Current Every Day Smoker Frequency of Alcohol Use: None Hx Recreational Drug Use: No Drugs: None Hx Prescription Drug Abuse: No Family History Family History: Reviewed & Not Pertinent Parental Family History Reviewed: Yes Children Family History Reviewed: Yes Sibling(s) Family History Reviewed.: Yes Medication/Allergy Allergies/Adverse Reactions: No Known Allergies Allergy (Verified 10/31/16 09:22) Review of Systems Constitutional: ABSENT: chills, fever(s), headache(s), weight gain, weight loss Eyes: ABSENT: visual disturbances Ears: ABSENT: hearing changes Cardiovascular: PRESENT: dyspnea on exertion Respiratory: PRESENT: cough, dyspnea Gastrointestinal: ABSENT: abdominal pain, constipation, diarrhea, hematemesis, hematochezia, nausea, vomiting Genitourinary: ABSENT: dysuria, hematuria Musculoskeletal: ABSENT: joint swelling Integumentary: ABSENT: rash, wounds Neurological: ABSENT: abnormal gait, abnormal speech, confusion, dizziness, focal weakness, syncope Psychiatric: ABSENT: anxiety, depression, homidical ideation, suicidal ideation Endocrine: ABSENT: cold intolerance, heat intolerance, menstrual abnormalities, polydipsia, polyuria Hematologic/Lymphatic: ABSENT: easy bleeding, easy bruising, lymphadenopathy Physical Exam Vital Signs: Temp Pulse Resp BP Pulse Ox 98.6 F 95 20 133/54 H 97 08/20/18 17:43 08/20/18 18:46 08/20/18 18:46 08/20/18 17:43 08/20/18 18:46 Intake & Output 08/19/18 08/20/18 08/21/18 06:59 06:59 06:59 Intake Total 150 Balance 150 General appearance: PRESENT: severe distress Head exam: PRESENT: atraumatic, normocephalic Eye exam: PRESENT: conjunctiva pink, EOMI, PERRLA Ear exam: PRESENT: normal external ear exam Mouth exam: PRESENT: moist, tongue midline Neck exam: PRESENT: full ROM Respiratory exam: PRESENT: accessory muscle use, retraction, wheezes Cardiovascular exam: PRESENT: RRR, +S1, +S2 Pulses: PRESENT: normal dorsalis pedis pul, +2 pedal pulses bilateral Vascular exam: PRESENT: normal capillary refill GI/Abdominal exam: PRESENT: normal bowel sounds, soft Rectal exam: PRESENT: deferred Neurological exam: PRESENT: alert, CN II-XII grossly intact Psychiatric exam: PRESENT: appropriate affect, normal mood Skin exam: PRESENT: dry, intact, warm Results Laboratory Results: 08/20/18 08/20/18 08/20/18 16:07 16:07 16:07 Carbonic Acid HCO3/H2CO3 Ratio ABG pH ABG pCO2 ABG pO2 ABG HCO3 ABG O2 Saturation ABG Base Excess FiO2 Lactic Acid Phosphorus 3.2 Magnesium 1.7 Ammonia < 8.7 L Amylase 55 Lipase 76.2 TSH 0.36 L Free T4 1.09 08/20/18 08/20/18 16:07 16:45 Carbonic Acid 0.81 L HCO3/H2CO3 Ratio 22:1 ABG pH 7.45 ABG pCO2 27.0 L ABG pO2 83.9 ABG HCO3 18.4 L ABG O2 Saturation 96.9 ABG Base Excess -4.3 FiO2 28% Lactic Acid 4.1 H Phosphorus Magnesium Ammonia Amylase Lipase TSH Free T4 08/20/18 08/20/18 08/20/18 16:07 16:07 16:07 Creatine Kinase 157 H CK-MB (CK-2) 1.53 Troponin I 0.024 NT-Pro-B Natriuret Pep 7530 H Impressions: Chest CT 08/20/18 00:00 IMPRESSION: Lingular bandlike atelectasis. Prominent main pulmonary artery worrisome for pulmonary hypertension. Calcified aortic and mitral valves, heavy coronary artery calcifications. Chest X-Ray 08/20/18 10:41 IMPRESSION: Borderline cardiac size. Discoid atelectasis left mid lung field. Otherwise, no acute disease. Assessment & Plan - Diagnosis (1) Acute hypoxemic respiratory failure Is this a current diagnosis for this admission?: Yes Plan: Patient presented with acute hypoxemic respiratory failure there is increased work of breathing, the PCO2 is 27 suggesting hyperventilation, she is able to maintain adequate oxygenation on FiO2 28%, there is increased risk of developing acute respiratory failure in this patient, she is using accessory muscle of respiration to breathe, she will be treated aggressively with bronchodilators, Solu-Medrol, antibiotic, she will be monitored if needed she be intubated. Though she is a DNR status so mechanical ventilation may not be an option but a noninvasive positive pressure ventilation may be warranted (2) COPD with acute exacerbation Is this a current diagnosis for this admission?: Yes (3) Diabetes mellitus type 2 in nonobese Is this a current diagnosis for this admission?: Yes (4) Chronic kidney disease, stage 3 Is this a current diagnosis for this admission?: Yes (5) Peripheral vascular disease Is this a current diagnosis for this admission?: Yes (6) Nicotine dependence with current use Is this a current diagnosis for this admission?: Yes
[2018-08-20 22:23] LABS: CREATINE KINASE MB 3.17 ng/mL (<4.55); TROPONIN I 0.037 ng/mL
[2018-08-20 23:09] LABS: APPEARANCE,URINE SLIGHTLY-CLOUDY; BILIRUBIN,URINE NEGATIVE (NEGATIVE); COLOR,URINE YELLOW; GLUCOSE, URINE NEGATIVE (NEGATIVE); KETONES,URINE NEGATIVE (NEGATIVE); LEUKOCYTE ESTERASE,URINE NEGATIVE (NEGATIVE); NITRITE,URINE NEGATIVE (NEGATIVE); PROTEIN,URINE 100 mg/dL (NEGATIVE); URINE SPECIFIC GRAVITY 1.019; UROBILINOGEN,URINE NEGATIVE mg/dL (<2.0)
[2018-08-21 00:13] LABS: URINE AMPHETAMINES SCREEN NEGATIVE; URINE BARBITURATES SCREEN NEGATIVE; URINE BENZODIAZEPINES SCREEN NEGATIVE; URINE COCAINE SCREEN NEGATIVE; URINE MARIJUANA (THC) SCREEN NEGATIVE; URINE METHADONE SCREEN NEGATIVE; URINE PHENCYCLIDINE SCREEN NEGATIVE
[2018-08-21] MEDS: IPRATROPIUM/ALBUTEROL 0.5-2.5 MG/3 ML AMPUL NEB PRN ×3 (00:20→08:45)
[2018-08-21 06:04] LABS: ABSOLUTE LYMPHOCYTES (AUTO) 0.8 10^3/uL (0.5-4.7); ABSOLUTE MONOCYTES (AUTO) 0.1 10^3/uL (0.1-1.4); ABSOLUTE NEUT (AUTO) 11.6 10^3/uL (1.7-8.2); BASOPHILS % (AUTO) 0.1 % (0-2); HEMATOCRIT 33.2 % (36.0-47.0); HEMOGLOBIN 11.7 g/dL (12.0-15.5); LYMPHOCYTES % (AUTO) 6.4 % (13-45); MEAN CORPUSCULAR HGB CONC 35.2 g/dL (32.0-36.0); MEAN CORPUSCULAR VOLUME 91 fl (80-97); PLATELET COUNT 160 10^3/uL (150-450); RED BLOOD COUNT 3.65 10^6/uL (3.72-5.28); RED CELL DISTRIBUTION WIDTH 13.3 % (11.5-14.0); SEGMENTED NEUTROPHILS % (AUTO) 92.5 % (42-78); TOTAL CELLS COUNTED % (AUTO) 100 %; WHITE BLOOD COUNT 12.6 10^3/uL (4.0-10.5)
[2018-08-21] MEDS: METHYLPREDNISOLONE INJ 125 MG/2 ML SDV IV SCH ×3 (06:10→21:32)
[2018-08-21 06:25] LABS: ALANINE AMINOTRANSFERASE 33 U/L (9-52); ALBUMIN 3.4 g/dL (3.5-5.0); ALKALINE PHOSPHATASE 92 U/L (38-126); ANION GAP 12 (5-19); ASPARTATE AMINO TRANSFERASE 35 U/L (14-36); BILIRUBIN,DIRECT 0.3 mg/dL (0.0-0.4); BILIRUBIN,TOTAL 0.5 mg/dL (0.2-1.3); BLOOD UREA NITROGEN 19 mg/dL (7-20); CARBON DIOXIDE 24 mmol/L (22-30); CHLORIDE 104 mmol/L (98-107); CHOLESTEROL 138.77 mg/dL (0-200); GLUCOSE 175 mg/dL (75-110); POTASSIUM 3.8 mmol/L (3.6-5.0); SODIUM 139.5 mmol/L (137-145); TOTAL PROTEIN 6.3 g/dL (6.3-8.2); TRIGLYCERIDES 132 mg/dL (<150)
[2018-08-21 06:35] LABS: DIRECT LDL 62 mg/dL (<100)
[2018-08-21 07:12] LABS: CREATINE KINASE MB 5.17 ng/mL (<4.55); TROPONIN I 0.029 ng/mL
[2018-08-21] MEDS ORDERED: ENOXAPARIN SODIUM INJ 40 MG/0.4 ML DISP.SYRIN SUBCUT SCH (10:00)
[2018-08-21] MEDS ORDERED: (PENDING PHARMACY ID) (Acetaminophen [Tylenol Extra Strength] 500 MG) PO PRN (12:19)
[2018-08-21] MEDS: AMLODIPINE BESYLATE 5 MG TABLET PO SCH (17:10)
[2018-08-21] MEDS: ATORVASTATIN CALCIUM 40 MG TABLET PO SCH (17:10)
[2018-08-21] MEDS: VENLAFAXINE HCL 75 MG TABLET PO SCH (17:10)
[2018-08-21] MEDS: LEVOFLOXACIN 750 MG/D5W RTU 750 MG/150 ML RTUPB IV SCH (17:10)
[2018-08-21] MEDS: RIVAROXABAN 15 MG TABLET PO SCH (17:10)
[2018-08-21] MEDS: INSULIN LISPRO 100 UNIT/ML 3 ML VIAL SUBCUT PRN (17:11)
[2018-08-21] MEDS: ACETAMINOPHEN 325 MG TABLET PO PRN (20:16)
--- NOTE | 2018-08-21 20:31 | PDOC PROGRESS REPORT ---
Subjective Progress Note for:: 08/21/18 Subjective:: She was seen by the bedside, she refuses bronchodilators, she refuses noninvasive positive pressure ventilation, she is very short of breath with audible wheeze, very anxious Reason For Visit: ACUTE COPD EXACERBATION Physical Exam Vital Signs: Temp Pulse Resp BP Pulse Ox 97.4 F 75 22 H 137/58 H 97 08/21/18 19:24 08/21/18 19:24 08/21/18 19:24 08/21/18 19:24 08/21/18 19:24 Intake & Output 08/20/18 08/21/18 08/22/18 06:59 06:59 06:59 Intake Total 622 400 Output Total 400 450 Balance 222 -50 Weight 84.9 kg General appearance: PRESENT: severe distress Eye exam: PRESENT: PERRLA Respiratory exam: PRESENT: wheezes Cardiovascular exam: PRESENT: +S1, +S2 GI/Abdominal exam: PRESENT: soft Neurological exam: PRESENT: alert, CN II-XII grossly intact Results Laboratory Results: 08/21/18 03:47 08/21/18 03:47 08/20/18 08/21/18 08/21/18 22:35 03:47 03:47 WBC 12.6 H RBC 3.65 L Hgb 11.7 L Hct 33.2 L MCV 91 MCH 32.0 MCHC 35.2 RDW 13.3 Plt Count 160 Seg Neutrophils % 92.5 H Lymphocytes % 6.4 L Monocytes % 1.0 L Eosinophils % 0.0 Basophils % 0.1 Absolute Neutrophils 11.6 H Absolute Lymphocytes 0.8 Absolute Monocytes 0.1 Absolute Eosinophils 0.0 Absolute Basophils 0.0 Sodium 139.5 Potassium 3.8 Chloride 104 Carbon Dioxide 24 Anion Gap 12 BUN 19 Creatinine 0.85 Est GFR ( Amer) > 60 Est GFR (Non-Af Amer) > 60 Glucose 175 H Calcium 9.0 Total Bilirubin 0.5 AST 35 ALT 33 Alkaline Phosphatase 92 Total Protein 6.3 Albumin 3.4 L Triglycerides 132 Cholesterol 138.77 LDL Cholesterol Direct 62 VLDL Cholesterol 26.0 HDL Cholesterol 50 Urine Color YELLOW Urine Appearance SLIGHTLY-CLOUDY Urine pH 6.0 Ur Specific Barbeau 1.019 Urine Protein 100 H Urine Glucose (UA) NEGATIVE Urine Ketones NEGATIVE Urine Blood NEGATIVE Urine Nitrite NEGATIVE Ur Leukocyte Esterase NEGATIVE Urine WBC (Auto) 1 Urine RBC (Auto) 1 08/20/18 08/20/18 08/20/18 16:07 16:07 16:07 Creatine Kinase 157 H CK-MB (CK-2) 1.53 Troponin I 0.024 NT-Pro-B Natriuret Pep 7530 H 08/20/18 08/20/18 08/21/18 21:44 21:44 03:47 Creatine Kinase 207 H 257 H CK-MB (CK-2) 3.17 Troponin I 0.037 NT-Pro-B Natriuret Pep 08/21/18 03:47 Creatine Kinase CK-MB (CK-2) 5.17 H Troponin I 0.029 NT-Pro-B Natriuret Pep Impressions: Chest CT 08/20/18 00:00 IMPRESSION: Lingular bandlike atelectasis. Prominent main pulmonary artery worrisome for pulmonary hypertension. Calcified aortic and mitral valves, heavy coronary artery calcifications. Chest X-Ray 08/20/18 10:41 IMPRESSION: Borderline cardiac size. Discoid atelectasis left mid lung field. Otherwise, no acute disease. Assessment & Plan - Diagnosis (1) Acute hypoxemic respiratory failure Is this a current diagnosis for this admission?: Yes (2) COPD with acute exacerbation Is this a current diagnosis for this admission?: Yes Plan: Continue IV antibiotic, continue bronchodilators, continue Solu-Medrol (3) Diabetes mellitus type 2 in nonobese Is this a current diagnosis for this admission?: Yes (4) Chronic kidney disease, stage 3 Is this a current diagnosis for this admission?: Yes (5) Peripheral vascular disease Is this a current diagnosis for this admission?: Yes (6) Nicotine dependence with current use Is this a current diagnosis for this admission?: Yes
[2018-08-21] MEDS: GABAPENTIN 300 MG CAPSULE PO SCH (21:32)
[2018-08-22] MEDS: ACETAMINOPHEN 325 MG TABLET PO PRN ×3 (03:32→19:56)
[2018-08-22] MEDS: METHYLPREDNISOLONE INJ 125 MG/2 ML SDV IV SCH ×3 (05:41→22:07)
[2018-08-22 06:30] LABS: HEMATOCRIT 34.7 % (36.0-47.0); MEAN CORPUSCULAR HEMOGLOBIN 31.7 pg (27.0-33.4); MEAN CORPUSCULAR HGB CONC 34.6 g/dL (32.0-36.0); MEAN CORPUSCULAR VOLUME 92 fl (80-97); PLATELET COUNT 188 10^3/uL (150-450); RED BLOOD COUNT 3.79 10^6/uL (3.72-5.28); RED CELL DISTRIBUTION WIDTH 13.6 % (11.5-14.0); WHITE BLOOD COUNT 20.3 10^3/uL (4.0-10.5)
[2018-08-22 06:40] LABS: ALANINE AMINOTRANSFERASE 38 U/L (9-52); ALBUMIN 3.5 g/dL (3.5-5.0); ALKALINE PHOSPHATASE 80 U/L (38-126); ANION GAP 8 (5-19); ASPARTATE AMINO TRANSFERASE 73 U/L (14-36); BILIRUBIN,DIRECT 0.5 mg/dL (0.0-0.4); BILIRUBIN,TOTAL 0.5 mg/dL (0.2-1.3); BLOOD UREA NITROGEN 23 mg/dL (7-20); CALCIUM 9.5 mg/dL (8.4-10.2); CARBON DIOXIDE 27 mmol/L (22-30); CHLORIDE 105 mmol/L (98-107); GLUCOSE 155 mg/dL (75-110); POTASSIUM 3.9 mmol/L (3.6-5.0); SODIUM 139.5 mmol/L (137-145); TOTAL PROTEIN 6.2 g/dL (6.3-8.2)
[2018-08-22 06:57] LABS: ABSOLUTE LYMPHOCYTES# (MANUAL) 1.2 10^3/uL (0.5-4.7); ABSOLUTE MONOCYTES # (MANUAL) 0.4 10^3/uL (0.1-1.4); ABSOLUTE NEUTROPHILS# (MANUAL) 18.7 10^3/uL (1.7-8.2); BASOPHILS % (MANUAL) 0 % (0-2); EOSINOPHILS % (MANUAL) 0 % (0-6); LYMPHOCYTES % (MANUAL) 6 % (13-45); MONOCYTES % (MANUAL) 2 % (3-13); POIKILOCYTOSIS SLIGHT; SEGMENTED NEUTROPHILS % (MAN) 92 % (42-78); TOTAL CELLS COUNTED 100
[2018-08-22 06:58] LABS: OVALOCYTES SLIGHT; PLATELET COMMENT ADEQUATE; PLATELET LARGE PRESENT
[2018-08-22] MEDS: CYANOCOBALAMIN (VITAMIN B-12) 1,000 MCG TABLET PO SCH (09:30)
[2018-08-22] MEDS: FUROSEMIDE 20 MG TABLET PO SCH (09:31)
[2018-08-22] MEDS: LISINOPRIL 10 MG TABLET PO SCH (09:31)
[2018-08-22] MEDS: METOPROLOL SUCCINATE 50 MG TAB.SR.24H PO SCH (09:31)
[2018-08-22] MEDS: CALCIUM CARBONATE 250 MG/VITAMIN D3 125 UNIT TABLET PO SCH (09:31)
[2018-08-22] MEDS: GABAPENTIN 300 MG CAPSULE PO SCH ×2 (09:31→22:07)
[2018-08-22] MEDS ORDERED: (PENDING PHARMACY ID) (Calcium Carbonate/Vitamin D3 [Calcium 500 + Vit D Caplet] 1 EACH) PO SCH (10:00)
[2018-08-22] MEDS ORDERED: CYANOCOBALAMIN 5000 MCG PO SCH (10:00)
[2018-08-22] MEDS ORDERED: (PENDING PHARMACY ID) (Umeclidinium Brm/Vilanterol Tr [Anoro Ellipta 62.5-25 Mcg Inh] 1 PU IH SCH (10:00)
[2018-08-22] MEDS ORDERED: NYSTATIN/DEXAMETH/DIPHEN SUSP 120 ML PO PRN (10:19)
[2018-08-22] MEDS ORDERED: ELLIPTA IH ONE (13:00)
[2018-08-22] MEDS ORDERED: ANORO IH ONE (13:00)
[2018-08-22] MEDS: BENZOCAINE/MENTHOL SORE THROAT LOZENGE BUCCAL PRN ×2 (13:45→17:25)
[2018-08-22] MEDS: VENLAFAXINE HCL 75 MG TABLET PO SCH (17:25)
[2018-08-22] MEDS: LEVOFLOXACIN 750 MG TABLET PO SCH (17:25)
[2018-08-22] MEDS: ATORVASTATIN CALCIUM 40 MG TABLET PO SCH (17:25)
[2018-08-22] MEDS: RIVAROXABAN 15 MG TABLET PO SCH (17:25)
[2018-08-22] MEDS: AMLODIPINE BESYLATE 5 MG TABLET PO SCH (17:25)
[2018-08-22] MEDS: INSULIN LISPRO 100 UNIT/ML 3 ML VIAL SUBCUT PRN (17:30)
--- NOTE | 2018-08-22 21:23 | PDOC PROGRESS REPORT ---
Subjective Progress Note for:: 08/22/18 Subjective:: Patient seen by the bedside, she still wheezing, though improved, she continues to refuse bronchodilators with DuoNeb because she believes the medication makes her worse Reason For Visit: ACUTE COPD EXACERBATION Physical Exam Vital Signs: Temp Pulse Resp BP Pulse Ox 97.4 F 65 16 97/60 L 100 08/22/18 19:40 08/22/18 19:40 08/22/18 19:40 08/22/18 19:40 08/22/18 19:40 Intake & Output 08/21/18 08/22/18 08/23/18 06:59 06:59 06:59 Intake Total 622 950 342 Output Total 400 750 200 Balance 222 200 142 Weight 84.9 kg 84 kg General appearance: PRESENT: no acute distress Eye exam: PRESENT: PERRLA Respiratory exam: PRESENT: wheezes Cardiovascular exam: PRESENT: +S1, +S2 GI/Abdominal exam: PRESENT: soft Neurological exam: PRESENT: alert Results Laboratory Results: 08/22/18 06:03 08/22/18 06:03 08/22/18 08/22/18 06:03 06:03 WBC 20.3 H RBC 3.79 Hgb 12.0 Hct 34.7 L MCV 92 MCH 31.7 MCHC 34.6 RDW 13.6 Plt Count 188 Seg Neutrophils % Not Reportable Lymphocytes % Not Reportable Monocytes % Not Reportable Eosinophils % Not Reportable Basophils % Not Reportable Absolute Neutrophils Not Reportable Absolute Lymphocytes Not Reportable Absolute Monocytes Not Reportable Absolute Eosinophils Not Reportable Absolute Basophils Not Reportable Sodium 139.5 Potassium 3.9 Chloride 105 Carbon Dioxide 27 Anion Gap 8 BUN 23 H Creatinine 0.98 Est GFR ( Amer) > 60 Est GFR (Non-Af Amer) 55 L Glucose 155 H Calcium 9.5 Total Bilirubin 0.5 AST 73 H ALT 38 Alkaline Phosphatase 80 Total Protein 6.2 L Albumin 3.5 08/20/18 08/20/18 08/20/18 16:07 16:07 16:07 Creatine Kinase 157 H CK-MB (CK-2) 1.53 Troponin I 0.024 NT-Pro-B Natriuret Pep 7530 H 08/20/18 08/20/18 08/21/18 21:44 21:44 03:47 Creatine Kinase 207 H 257 H CK-MB (CK-2) 3.17 Troponin I 0.037 NT-Pro-B Natriuret Pep 08/21/18 03:47 Creatine Kinase CK-MB (CK-2) 5.17 H Troponin I 0.029 NT-Pro-B Natriuret Pep Impressions: Chest CT 08/20/18 00:00 IMPRESSION: Lingular bandlike atelectasis. Prominent main pulmonary artery worrisome for pulmonary hypertension. Calcified aortic and mitral valves, heavy coronary artery calcifications. Chest X-Ray 08/20/18 10:41 IMPRESSION: Borderline cardiac size. Discoid atelectasis left mid lung field. Otherwise, no acute disease. Assessment & Plan - Diagnosis (1) Acute hypoxemic respiratory failure Is this a current diagnosis for this admission?: Yes (2) COPD with acute exacerbation Is this a current diagnosis for this admission?: Yes Plan: Continue intravenous Solu-Medrol and other treatment (3) Diabetes mellitus type 2 in nonobese Is this a current diagnosis for this admission?: Yes (4) Chronic kidney disease, stage 3 Is this a current diagnosis for this admission?: Yes (5) Peripheral vascular disease Is this a current diagnosis for this admission?: Yes (6) Nicotine dependence with current use Is this a current diagnosis for this admission?: Yes
[2018-08-23 05:33] LABS: ABSOLUTE LYMPHOCYTES (AUTO) 1.3 10^3/uL (0.5-4.7); ABSOLUTE MONOCYTES (AUTO) 0.3 10^3/uL (0.1-1.4); ABSOLUTE NEUT (AUTO) 17.4 10^3/uL (1.7-8.2); BASOPHILS % (AUTO) 0.1 % (0-2); HEMATOCRIT 36.1 % (36.0-47.0); HEMOGLOBIN 12.3 g/dL (12.0-15.5); LYMPHOCYTES % (AUTO) 6.9 % (13-45); MEAN CORPUSCULAR HEMOGLOBIN 31.3 pg (27.0-33.4); MEAN CORPUSCULAR HGB CONC 34.1 g/dL (32.0-36.0); MEAN CORPUSCULAR VOLUME 92 fl (80-97); MONOCYTES % (AUTO) 1.6 % (3-13); PLATELET COUNT 232 10^3/uL (150-450); RED BLOOD COUNT 3.93 10^6/uL (3.72-5.28); RED CELL DISTRIBUTION WIDTH 13.2 % (11.5-14.0); SEGMENTED NEUTROPHILS % (AUTO) 91.4 % (42-78); TOTAL CELLS COUNTED % (AUTO) 100 %; WHITE BLOOD COUNT 19.1 10^3/uL (4.0-10.5)
[2018-08-23] MEDS: METHYLPREDNISOLONE INJ 125 MG/2 ML SDV IV SCH ×3 (05:48→21:47)
[2018-08-23] MEDS: ACETAMINOPHEN 325 MG TABLET PO PRN ×3 (05:50→21:48)
[2018-08-23 05:54] LABS: ALANINE AMINOTRANSFERASE 42 U/L (9-52); ALBUMIN 3.6 g/dL (3.5-5.0); ALKALINE PHOSPHATASE 69 U/L (38-126); ANION GAP 9 (5-19); ASPARTATE AMINO TRANSFERASE 60 U/L (14-36); BILIRUBIN,DIRECT 0.3 mg/dL (0.0-0.4); BILIRUBIN,TOTAL 0.4 mg/dL (0.2-1.3); BLOOD UREA NITROGEN 40 mg/dL (7-20); CALCIUM 9.7 mg/dL (8.4-10.2); CARBON DIOXIDE 28 mmol/L (22-30); CHLORIDE 104 mmol/L (98-107); GLUCOSE 158 mg/dL (75-110); POTASSIUM 4.1 mmol/L (3.6-5.0); SODIUM 140.5 mmol/L (137-145); TOTAL PROTEIN 6.3 g/dL (6.3-8.2)
[2018-08-23] MEDS: INSULIN LISPRO 100 UNIT/ML 3 ML VIAL SUBCUT PRN ×4 (07:38→21:47)
[2018-08-23] MEDS: ANORO IH SCH (10:18)
[2018-08-23] MEDS: CALCIUM CARBONATE 250 MG/VITAMIN D3 125 UNIT TABLET PO SCH (10:18)
[2018-08-23] MEDS: ELLIPTA IH SCH (10:18)
[2018-08-23] MEDS: GABAPENTIN 300 MG CAPSULE PO SCH ×2 (10:19→21:48)
[2018-08-23] MEDS: FUROSEMIDE 20 MG TABLET PO SCH (10:19)
[2018-08-23] MEDS: LISINOPRIL 10 MG TABLET PO SCH (10:19)
[2018-08-23] MEDS: METOPROLOL SUCCINATE 50 MG TAB.SR.24H PO SCH (10:19)
[2018-08-23] MEDS: CYANOCOBALAMIN (VITAMIN B-12) 1,000 MCG TABLET PO SCH (10:19)
[2018-08-23] MEDS: RIVAROXABAN 15 MG TABLET PO SCH (17:25)
[2018-08-23] MEDS: ATORVASTATIN CALCIUM 40 MG TABLET PO SCH (17:25)
[2018-08-23] MEDS: VENLAFAXINE HCL 75 MG TABLET PO SCH (17:25)
[2018-08-23] MEDS: AMLODIPINE BESYLATE 5 MG TABLET PO SCH (17:25)
[2018-08-23] MEDS: LEVOFLOXACIN 750 MG TABLET PO SCH (17:26)
--- NOTE | 2018-08-23 18:42 | PDOC PROGRESS REPORT ---
Subjective Progress Note for:: 08/23/18 Subjective:: Patient was seen by the bedside, she continues to wheeze, complaint of dysphagia Reason For Visit: ACUTE COPD EXACERBATION Physical Exam Vital Signs: Temp Pulse Resp BP Pulse Ox 97.9 F 64 16 138/52 H 99 08/23/18 15:26 08/23/18 17:18 08/23/18 17:18 08/23/18 15:26 08/23/18 17:18 Intake & Output 08/22/18 08/23/18 08/24/18 06:59 06:59 06:59 Intake Total 950 342 90 Output Total 750 200 Balance 200 142 90 Weight 84 kg 83.6 kg General appearance: PRESENT: no acute distress Eye exam: PRESENT: PERRLA Respiratory exam: PRESENT: wheezes Cardiovascular exam: PRESENT: +S1, +S2 GI/Abdominal exam: PRESENT: soft Neurological exam: PRESENT: alert Results Laboratory Results: 08/23/18 05:08 08/23/18 05:08 08/23/18 08/23/18 05:08 05:08 WBC 19.1 H RBC 3.93 Hgb 12.3 Hct 36.1 MCV 92 MCH 31.3 MCHC 34.1 RDW 13.2 Plt Count 232 Seg Neutrophils % 91.4 H Lymphocytes % 6.9 L Monocytes % 1.6 L Eosinophils % 0.0 Basophils % 0.1 Absolute Neutrophils 17.4 H Absolute Lymphocytes 1.3 Absolute Monocytes 0.3 Absolute Eosinophils 0.0 Absolute Basophils 0.0 Sodium 140.5 Potassium 4.1 Chloride 104 Carbon Dioxide 28 Anion Gap 9 BUN 40 H Creatinine 1.22 Est GFR ( Amer) 52 L Est GFR (Non-Af Amer) 43 L Glucose 158 H Calcium 9.7 Total Bilirubin 0.4 AST 60 H ALT 42 Alkaline Phosphatase 69 Total Protein 6.3 Albumin 3.6 08/20/18 22:35 Clean Catch Midstream Urine Culture - Final Staph Coagulase Negative Mixed Urogenital Amrita 08/20/18 08/20/18 08/20/18 16:07 16:07 16:07 Creatine Kinase 157 H CK-MB (CK-2) 1.53 Troponin I 0.024 NT-Pro-B Natriuret Pep 7530 H 08/20/18 08/20/18 08/21/18 21:44 21:44 03:47 Creatine Kinase 207 H 257 H CK-MB (CK-2) 3.17 Troponin I 0.037 NT-Pro-B Natriuret Pep 08/21/18 03:47 Creatine Kinase CK-MB (CK-2) 5.17 H Troponin I 0.029 NT-Pro-B Natriuret Pep Impressions: Chest CT 08/20/18 00:00 IMPRESSION: Lingular bandlike atelectasis. Prominent main pulmonary artery worrisome for pulmonary hypertension. Calcified aortic and mitral valves, heavy coronary artery calcifications. Chest X-Ray 08/20/18 10:41 IMPRESSION: Borderline cardiac size. Discoid atelectasis left mid lung field. Otherwise, no acute disease. Assessment & Plan - Diagnosis (1) Acute hypoxemic respiratory failure Is this a current diagnosis for this admission?: Yes (2) COPD with acute exacerbation Is this a current diagnosis for this admission?: Yes Plan: Continue IV Solu-Medrol (3) Diabetes mellitus type 2 in nonobese Is this a current diagnosis for this admission?: Yes (4) Chronic kidney disease, stage 3 Is this a current diagnosis for this admission?: Yes (5) Peripheral vascular disease Is this a current diagnosis for this admission?: Yes (6) Nicotine dependence with current use Is this a current diagnosis for this admission?: Yes (7) Dysphagia Qualifiers: Dysphagia type: unspecified Qualified Code(s): R13.10 - Dysphagia, unspecified Is this a current diagnosis for this admission?: Yes Plan: Barium swallow ordered
[2018-08-24] MEDS: METHYLPREDNISOLONE INJ 125 MG/2 ML SDV IV SCH ×2 (05:23→13:50)
[2018-08-24] MEDS: ACETAMINOPHEN 325 MG TABLET PO PRN ×3 (06:11→22:07)
[2018-08-24] MEDS: INSULIN LISPRO 100 UNIT/ML 3 ML VIAL SUBCUT PRN ×4 (07:52→21:54)
--- NOTE | 2018-08-24 09:43 | RADIOLOGY REPORT (SQ) ---
EXAM DESCRIPTION: BARIUM SWALLOW ESOPHAGUS COMPLETED DATE/TIME: 08/24/2018 8:59 am REASON FOR STUDY: Painful swallowing, heartburn COMPARISON: None. TECHNIQUE: Under fluoroscopic guidance, patient ingested effervescent granules followed by thick and thin barium. Fluoroscopic spot images and routine radiographic images acquired and stored on PACS. 12 MM BARIUM TABLET GIVEN: Yes. No significant delay in passage. LIMITATIONS: None. FLUOROSCOPY TIME: FLUORO TIME: 1 minutes 32 seconds of fluoroscopy was used. 11 images saved to PACS. FINDINGS: NEUROMUSCULAR COORDINATION OF SWALLOW: Normal. No aspiration. ESOPHAGEAL MOTILITY: Tertiary contractions in the mid and distal esophagus with mild stasis of contra st. ESOPHAGEAL MUCOSA: Normal mucosa without masses or ulceration. GASTRO-ESOPHAGEAL JUNCTION: Small hiatal hernia with mild gastroesophageal reflux. 12 mm barium tabl et passed through the GE junction without delay. NON-GI TRACT STRUCTURES: No significant finding. OTHER: No other significant finding. IMPRESSION: PRESBYESOPHAGUS WITH SMALL SLIDING HIATAL HERNIA AND MILD GASTROESOPHAGEAL REFLUX. COMMENT: Quality ID [id number]: Final reports for procedures using fluoroscopy that document radiation exp osure indices, or exposure time and number of fluorographic images (if radiation exposure indices are not available) TECHNICAL DOCUMENTATION: JOB ID: [id number] [employer]- All Rights Reserved Reading location - IP/workstation name: [email or web address] [id number]
[2018-08-24] MEDS: CALCIUM CARBONATE 250 MG/VITAMIN D3 125 UNIT TABLET PO SCH (09:59)
[2018-08-24] MEDS: METOPROLOL SUCCINATE 50 MG TAB.SR.24H PO SCH (09:59)
[2018-08-24] MEDS: LISINOPRIL 10 MG TABLET PO SCH (10:00)
[2018-08-24] MEDS: GABAPENTIN 300 MG CAPSULE PO SCH ×2 (10:00→21:54)
[2018-08-24] MEDS: FUROSEMIDE 20 MG TABLET PO SCH (10:00)
[2018-08-24] MEDS: CYANOCOBALAMIN (VITAMIN B-12) 1,000 MCG TABLET PO SCH (10:01)
[2018-08-24] MEDS: ANORO IH SCH (10:05)
[2018-08-24] MEDS: ELLIPTA IH SCH (10:05)
[2018-08-24] MEDS: VENLAFAXINE HCL 75 MG TABLET PO SCH (17:07)
[2018-08-24] MEDS: ATORVASTATIN CALCIUM 40 MG TABLET PO SCH (17:07)
[2018-08-24] MEDS: AMLODIPINE BESYLATE 5 MG TABLET PO SCH (17:07)
[2018-08-24] MEDS: LEVOFLOXACIN 750 MG TABLET PO SCH (17:07)
--- NOTE | 2018-08-24 21:12 | PDOC PROGRESS REPORT ---
Subjective Progress Note for:: 08/24/18 Subjective:: Patient was seen by the bedside, the barium swallow did not show any stricture or intraluminal lesion other than acid reflux disease Reason For Visit: ACUTE COPD EXACERBATION Physical Exam Vital Signs: Temp Pulse Resp BP Pulse Ox 97.7 F 62 16 114/56 L 100 08/24/18 19:52 08/24/18 19:52 08/24/18 19:52 08/24/18 19:52 08/24/18 19:52 Intake & Output 08/23/18 08/24/18 08/25/18 06:59 06:59 06:59 Intake Total 342 390 418 Output Total 200 150 Balance 142 240 418 Weight 83.6 kg 82 kg General appearance: PRESENT: no acute distress Eye exam: PRESENT: PERRLA Respiratory exam: PRESENT: clear to auscultation deborah Cardiovascular exam: PRESENT: +S1, +S2 GI/Abdominal exam: PRESENT: rigid Neurological exam: PRESENT: alert Results Laboratory Results: 08/23/18 05:08 08/23/18 05:08 08/20/18 08/20/18 08/20/18 16:07 16:07 16:07 Creatine Kinase 157 H CK-MB (CK-2) 1.53 Troponin I 0.024 NT-Pro-B Natriuret Pep 7530 H 08/20/18 08/20/18 08/21/18 21:44 21:44 03:47 Creatine Kinase 207 H 257 H CK-MB (CK-2) 3.17 Troponin I 0.037 NT-Pro-B Natriuret Pep 08/21/18 03:47 Creatine Kinase CK-MB (CK-2) 5.17 H Troponin I 0.029 NT-Pro-B Natriuret Pep Impressions: Chest CT 08/20/18 00:00 IMPRESSION: Lingular bandlike atelectasis. Prominent main pulmonary artery worrisome for pulmonary hypertension. Calcified aortic and mitral valves, heavy coronary artery calcifications. Chest X-Ray 08/20/18 10:41 IMPRESSION: Borderline cardiac size. Discoid atelectasis left mid lung field. Otherwise, no acute disease. Esophagus X-Ray 08/24/18 00:00 IMPRESSION: PRESBYESOPHAGUS WITH SMALL SLIDING HIATAL HERNIA AND MILD GASTROESOPHAGEAL REFLUX. Assessment & Plan - Diagnosis (1) Acute hypoxemic respiratory failure Is this a current diagnosis for this admission?: Yes (2) COPD with acute exacerbation Is this a current diagnosis for this admission?: Yes Plan: DC Solu-Medrol start prednisone. (3) Diabetes mellitus type 2 in nonobese Is this a current diagnosis for this admission?: Yes (4) Chronic kidney disease, stage 3 Is this a current diagnosis for this admission?: Yes (5) Peripheral vascular disease Is this a current diagnosis for this admission?: Yes (6) Nicotine dependence with current use Is this a current diagnosis for this admission?: Yes (7) Dysphagia Qualifiers: Dysphagia type: unspecified Qualified Code(s): R13.10 - Dysphagia, unspecified Is this a current diagnosis for this admission?: Yes
[2018-08-25] MEDS: INSULIN LISPRO 100 UNIT/ML 3 ML VIAL SUBCUT PRN ×3 (07:48→23:35)
[2018-08-25] MEDS: BENZOCAINE/MENTHOL SORE THROAT LOZENGE BUCCAL PRN ×2 (08:00→21:44)
[2018-08-25] MEDS: PREDNISONE 20 MG TABLET PO SCH (09:45)
[2018-08-25] MEDS: GABAPENTIN 300 MG CAPSULE PO SCH ×2 (09:45→21:39)
[2018-08-25] MEDS: METOPROLOL SUCCINATE 50 MG TAB.SR.24H PO SCH (09:45)
[2018-08-25] MEDS: FUROSEMIDE 20 MG TABLET PO SCH (09:45)
[2018-08-25] MEDS: CALCIUM CARBONATE 250 MG/VITAMIN D3 125 UNIT TABLET PO SCH (09:46)
[2018-08-25] MEDS: LISINOPRIL 10 MG TABLET PO SCH (09:46)
[2018-08-25] MEDS: CYANOCOBALAMIN (VITAMIN B-12) 1,000 MCG TABLET PO SCH (09:46)
[2018-08-25] MEDS: ELLIPTA IH SCH (09:47)
[2018-08-25] MEDS: ANORO IH SCH (09:47)
[2018-08-25] MEDS: ACETAMINOPHEN 325 MG TABLET PO PRN ×2 (13:35→21:39)
[2018-08-25] MEDS: AMLODIPINE BESYLATE 5 MG TABLET PO SCH (17:06)
[2018-08-25] MEDS: VENLAFAXINE HCL 75 MG TABLET PO SCH (17:06)
[2018-08-25] MEDS: ATORVASTATIN CALCIUM 40 MG TABLET PO SCH (17:06)
[2018-08-25] MEDS: RIVAROXABAN 15 MG TABLET PO SCH (17:06)
[2018-08-25] MEDS: LEVOFLOXACIN 750 MG TABLET PO SCH (17:06)
--- NOTE | 2018-08-25 19:50 | PDOC PROGRESS REPORT ---
Subjective Progress Note for:: 08/25/18 Subjective:: Patient is seen by the bedside, she is improved with treatment, she was transitioned from Solu-Medrol to prednisone Reason For Visit: ACUTE COPD EXACERBATION Physical Exam Vital Signs: Temp Pulse Resp BP Pulse Ox 98.3 F 69 20 128/59 H 96 08/25/18 16:08 08/25/18 16:08 08/25/18 16:08 08/25/18 16:08 08/25/18 16:08 Intake & Output 08/24/18 08/25/18 08/26/18 06:59 06:59 06:59 Intake Total 390 418 600 Output Total 150 Balance 240 418 600 Weight 82 kg 83.1 kg General appearance: PRESENT: no acute distress Eye exam: PRESENT: PERRLA Respiratory exam: PRESENT: rhonchi Cardiovascular exam: PRESENT: +S1, +S2 GI/Abdominal exam: PRESENT: soft Neurological exam: PRESENT: alert Results Laboratory Results: 08/23/18 05:08 08/23/18 05:08 08/20/18 15:10 Blood Blood Culture - Final NO GROWTH IN 5 DAYS 08/20/18 08/20/18 08/20/18 16:07 16:07 16:07 Creatine Kinase 157 H CK-MB (CK-2) 1.53 Troponin I 0.024 NT-Pro-B Natriuret Pep 7530 H 08/20/18 08/20/18 08/21/18 21:44 21:44 03:47 Creatine Kinase 207 H 257 H CK-MB (CK-2) 3.17 Troponin I 0.037 NT-Pro-B Natriuret Pep 08/21/18 03:47 Creatine Kinase CK-MB (CK-2) 5.17 H Troponin I 0.029 NT-Pro-B Natriuret Pep Impressions: Chest CT 08/20/18 00:00 IMPRESSION: Lingular bandlike atelectasis. Prominent main pulmonary artery worrisome for pulmonary hypertension. Calcified aortic and mitral valves, heavy coronary artery calcifications. Chest X-Ray 08/20/18 10:41 IMPRESSION: Borderline cardiac size. Discoid atelectasis left mid lung field. Otherwise, no acute disease. Esophagus X-Ray 08/24/18 00:00 IMPRESSION: PRESBYESOPHAGUS WITH SMALL SLIDING HIATAL HERNIA AND MILD GASTROESOPHAGEAL REFLUX. Assessment & Plan - Diagnosis (1) Acute hypoxemic respiratory failure Is this a current diagnosis for this admission?: Yes (2) COPD with acute exacerbation Is this a current diagnosis for this admission?: Yes (3) Diabetes mellitus type 2 in nonobese Is this a current diagnosis for this admission?: Yes (4) Chronic kidney disease, stage 3 Is this a current diagnosis for this admission?: Yes (5) Peripheral vascular disease Is this a current diagnosis for this admission?: Yes (6) Nicotine dependence with current use Is this a current diagnosis for this admission?: Yes (7) Dysphagia Qualifiers: Dysphagia type: unspecified Qualified Code(s): R13.10 - Dysphagia, unspecified Is this a current diagnosis for this admission?: Yes - Plan Summary Plan Summary: Continue treatment
--- NOTE | 2018-08-25 19:57 | PDOC DISCHARGE SUMMARY ---
General - Admit/Disc Date/PCP Admission Date/Primary Care Provider: 08/20/18 14:50 SONNY MARTÍNEZ MD Discharge Date: 08/26/18 - Discharge Diagnosis (1) Acute hypoxemic respiratory failure Is this a current diagnosis for this admission?: Yes (2) COPD with acute exacerbation Is this a current diagnosis for this admission?: Yes (3) Diabetes mellitus type 2 in nonobese Is this a current diagnosis for this admission?: Yes (4) Chronic kidney disease, stage 3 Is this a current diagnosis for this admission?: Yes (5) Peripheral vascular disease Is this a current diagnosis for this admission?: Yes (6) Nicotine dependence with current use Is this a current diagnosis for this admission?: Yes (7) Dysphagia Is this a current diagnosis for this admission?: Yes - Additional Information Resuscitation Status: Do Not Resuscitate Prescriptions: Insulin Aspart [Novolog Flexpen] 0 unit SUBCUT .SLD SCALE #1 pen Prednisone [Deltasone 20 mg Tablet] 20 mg PO DAILY #40 tablet Home Medications: Acetaminophen [Tylenol Extra Strength] 500 mg PO PRN PRN 08/21/18 Amlodipine Besylate [Norvasc 5 mg Tablet] 5 mg PO QPM 08/21/18 Atorvastatin Calcium [Lipitor 40 mg Tablet] 40 mg PO QPM 08/21/18 Calcium Carbonate/Vitamin D3 [Calcium 500 + Vit D Caplet] 1 each PO DAILY Cyanocobalamin (Vitamin B-12) [Vitamin B12] 5,000 mcg PO DAILY 08/21/18 Furosemide [Lasix 20 mg Tablet] 20 mg PO DAILY 08/21/18 Gabapentin [Neurontin 300 mg Capsule] 300 mg PO Q12 08/21/18 Lisinopril [Prinivil 40 mg Tablet] 40 mg PO DAILY 08/21/18 Metoprolol Succinate [Toprol XL 100 mg Tablet] 100 mg PO DAILY 08/21/18 Rivaroxaban [Xarelto 15 mg Tablet] 15 mg PO QPM 08/21/18 Umeclidinium Brm/Vilanterol Tr [Anoro Ellipta 62.5-25 Mcg INH] 1 puff IH DAILY 08/21/18 Venlafaxine HCl [Effexor 75 mg Tablet] 75 mg PO QPM 08/21/18 Insulin Aspart [Novolog Flexpen] 0 unit SUBCUT .SLD SCALE #1 pen 10/12/18 Prednisone [Deltasone 20 mg Tablet] 20 mg PO DAILY #40 tablet 08/25/18 History of Present Illness History of Present Illness: VAISHNAVI CHAVEZ is a 78 year old female, she has a history of type 2 diabetes mellitus, chronic kidney disease stage III, peripheral vascular disease, deep vein thrombosis on chronic anticoagulation, COPD, a recalcitrant smoker, she continues to smoke cigarette despite complications of tobacco use, she has significant vascular disease including peripheral vascular disease she is a diabetic, she was counseled multiple times of the danger of smoking also offered smoking cessation management intervention including use of medication, nicotine patch etc. but she continues to smoke. She came to the emergency room today for evaluation of shortness of breath, in the emergency room a chest x- ray was done which was negative I requested for CT chest on this patient demonstrated minimal bandlike atelectasis there is no infiltrate worrisome for pneumonia or edema also found was marked enlargement of the pulmonary artery worrisome for pulmonary hypertension. ABG on FiO2 of the 28%, pH 7.45, PCO2 27 PO2 83, bicarbonate 18.4 she also have lactic acidosis. She is very upset she was wheezing she was crying because she cannot breathe Hospital Course Hospital Course: She was admitted for the management of acute COPD exacerbation, she had very severe respiratory failure with severe hypoxemia, she was treated with intravenous Solu-Medrol 125 mg IV every 8 patient consistently refused to have noninvasive positive pressure ventilation, BiPAP she also refused bronchodilators via nebulizer device. She does not want any device on the face , she was transitioned to p.o. prednisone yesterday after she made significant progress.She complained of dysphagia, barium swallow was done, it demonstrated acid reflux disease.Patient was advised of the need for complete smoking cessation Physical Exam Vital Signs: Temp Pulse Resp BP Pulse Ox 98.3 F 69 20 128/59 H 96 08/25/18 16:08 08/25/18 16:08 08/25/18 16:08 08/25/18 16:08 08/25/18 16:08 Intake & Output 08/24/18 08/25/18 08/26/18 06:59 06:59 06:59 Intake Total 390 418 600 Output Total 150 Balance 240 418 600 Weight 82 kg 83.1 kg General appearance: PRESENT: no acute distress Head exam: PRESENT: atraumatic, normocephalic Eye exam: PRESENT: conjunctiva pink, EOMI, PERRLA Ear exam: PRESENT: normal external ear exam Mouth exam: PRESENT: moist, tongue midline Neck exam: PRESENT: full ROM Respiratory exam: PRESENT: clear to auscultation deborah Cardiovascular exam: PRESENT: RRR, +S1, +S2 Pulses: PRESENT: normal dorsalis pedis pul, +2 pedal pulses bilateral Vascular exam: PRESENT: normal capillary refill GI/Abdominal exam: PRESENT: normal bowel sounds, soft Rectal exam: PRESENT: deferred Neurological exam: PRESENT: alert, awake, oriented to person, oriented to place , oriented to time, oriented to situation, CN II-XII grossly intact Psychiatric exam: PRESENT: appropriate affect, normal mood Skin exam: PRESENT: dry, intact, warm Results Laboratory Results: 08/23/18 05:08 08/23/18 05:08 08/20/18 15:10 Blood Blood Culture - Final NO GROWTH IN 5 DAYS 08/20/18 08/20/18 08/20/18 16:07 16:07 16:07 Creatine Kinase 157 H CK-MB (CK-2) 1.53 Troponin I 0.024 NT-Pro-B Natriuret Pep 7530 H 08/20/18 08/20/18 08/21/18 21:44 21:44 03:47 Creatine Kinase 207 H 257 H CK-MB (CK-2) 3.17 Troponin I 0.037 NT-Pro-B Natriuret Pep 08/21/18 03:47 Creatine Kinase CK-MB (CK-2) 5.17 H Troponin I 0.029 NT-Pro-B Natriuret Pep Impressions: Chest CT 08/20/18 00:00 IMPRESSION: Lingular bandlike atelectasis. Prominent main pulmonary artery worrisome for pulmonary hypertension. Calcified aortic and mitral valves, heavy coronary artery calcifications. Chest X-Ray 08/20/18 10:41 IMPRESSION: Borderline cardiac size. Discoid atelectasis left mid lung field. Otherwise, no acute disease. Esophagus X-Ray 08/24/18 00:00 IMPRESSION: PRESBYESOPHAGUS WITH SMALL SLIDING HIATAL HERNIA AND MILD GASTROESOPHAGEAL REFLUX. Qualifiers - * PATIENT BEING DISCHARGED WITH ANY OF THE FOLLOWING DIAGNOSIS: No
[2018-08-26] MEDS: CALCIUM CARBONATE 250 MG/VITAMIN D3 125 UNIT TABLET PO SCH (09:10)
[2018-08-26] MEDS: METOPROLOL SUCCINATE 50 MG TAB.SR.24H PO SCH (09:10)
[2018-08-26] MEDS: CYANOCOBALAMIN (VITAMIN B-12) 1,000 MCG TABLET PO SCH (09:11)
[2018-08-26] MEDS: FUROSEMIDE 20 MG TABLET PO SCH (09:11)
[2018-08-26] MEDS: GABAPENTIN 300 MG CAPSULE PO SCH (09:11)
[2018-08-26] MEDS: LISINOPRIL 10 MG TABLET PO SCH (09:12)
[2018-08-26] MEDS: PREDNISONE 20 MG TABLET PO SCH (09:12)
[2018-08-26] MEDS: ELLIPTA IH SCH (09:13)
[2018-08-26] MEDS: ANORO IH SCH (09:13)
[2018-08-26] MEDS: ACETAMINOPHEN 325 MG TABLET PO PRN (09:43)
[2018-08-26 09:51] VITALS: BP 133/69
== END 2018-08-26 10:08 | disposition home or self-care (01) | DRG 189 ==
LOC: ER 10:16 → EH 14:50 → 5 15:41 → 3S 17:20
PROVIDERS: ADMIT Internal Medicine; ATTEND Internal Medicine
PROC: 3E0234Z Introduction of Serum, Toxoid and Vaccine into Muscle, Percutaneous Approach (ICD-10-PCS; principal; 2018-08-26)
DX: J96.21 Acute and chronic respiratory failure with hypoxia (principal); J44.1 Chronic obstructive pulmonary disease with (acute) exacerbation; E87.2 Acidosis; I27.20 Pulmonary hypertension, unspecified; Z66 Do not resuscitate; Z99.81 Dependence on supplemental oxygen; I12.9 Hypertensive chronic kidney disease with stage 1 through stage 4 chronic kidney disease, or unspecified chronic kidney disease; N18.3 Chronic kidney disease, stage 3 (moderate); E11.22 Type 2 diabetes mellitus with diabetic chronic kidney disease; I73.9 Peripheral vascular disease, unspecified; E78.5 Hyperlipidemia, unspecified; R13.10 Dysphagia, unspecified; K21.9 Gastro-esophageal reflux disease without esophagitis; F17.210 Nicotine dependence, cigarettes, uncomplicated; Z79.01 Long term (current) use of anticoagulants; Z86.718 Personal history of other venous thrombosis and embolism; Z23 Encounter for immunization
CPT/HCPCS: 36415; 36600; 71046; 71250; 74220; 80048; 80053; 80061; 80076; 80307; 81001; 82140; 82150; 82550; 82553; 82803; 82962; 83036; 83605; 83690; 83735; 83880; 84100; 84439; 84443; 84484; 85025; 85610; 85730; 87040; 87086; 90686; 93005; 93010; 94640; 96374; 99291; J0696; J1650; J1815; J1956; J2060; J2930; J3490; J7512; J7620

== ENCOUNTER → 2018-09-21 | Outpatient (CLI) | payer MEDICARE, OTHER ==
--- NOTE | 2018-09-21 17:02 | RADIOLOGY REPORT (SQ) ---
EXAM DESCRIPTION: KNEE BILATERAL 1-2 VIEWS COMPLETED DATE/TIME: 09/21/2018 4:52 pm REASON FOR STUDY: COLIN PRIMARY OSTEOARTHRITIS OF KNEE M17.0 BILATERAL PRIMARY OSTEOARTHRITIS OF KNEE COMPARISON: None. NUMBER OF VIEWS: One view. TECHNIQUE: AP standing bilateral knees. LIMITATIONS: None. FINDINGS: MINERALIZATION: Normal. RIGHT KNEE BONES: No acute fracture. No worrisome bone lesions. MEDIAL COMPARTMENT: No significant osteophytes. No joint space narrowing. Faint chondrocalcinosis . LATERAL COMPARTMENT: No significant osteophytes. No joint space narrowing. Faint chondrocalcinosi s. LEFT KNEE BONES: No acute fracture. No worrisome bone lesions. MEDIAL COMPARTMENT: No significant osteophytes. No joint space narrowing. Faint chondrocalcinosis . LATERAL COMPARTMENT: No significant osteophytes. No joint space narrowing. Faint chondrocalcinosi s. IMPRESSION: FAINT CHONDROCALCINOSIS IN BOTH KNEES. NO SIGNIFICANT JOINT SPACE NARROWING OR OTHER SIG NS OF ARTHRITIS. TECHNICAL DOCUMENTATION: JOB ID: [id number] [employer]- All Rights Reserved Reading location - IP/workstation name: [email or web address]
== END ==
LOC: OD 16:34
PROVIDERS: ATTEND Internal Medicine
DX: M17.0 Bilateral primary osteoarthritis of knee (principal)

== ENCOUNTER 2018-09-25 07:14 | Emergency (ER) | payer MEDICARE, OTHER ==
[2018-09-25] MEDS ORDERED: LORAZEPAM INJ 2 MG/1 ML VIAL IV ONE (07:42)
--- NOTE | 2018-09-25 07:53 | ER Document Report ---
ED Fall - General Chief Complaint: Gout/Pain Stated Complaint: KNEE PAIN Time Seen by Provider: 09/25/18 07:30 Mode of Arrival: Stretcher Information source: Patient Notes: Patient is a 78-year-old female brought into emergency room by EMS complaining of a mechanical fall. Patient states that last Tuesday she was diagnosed with pseudogout in both knees by Dr. Martínez she states she was going to put her on prednisone and supposed of called the prescription in but she went to 3 pharmacies and there was no prescription to be had. She got up Tuesday morning and was attempting to walk and she thinks her right knee gave out and she heard it pop. Patient ended up on the floor landing straight down on her knee. She states that since that point time she is not been ambulatory she has coaster chairs so she would transfer away from one to the other to get around in her house. She currently lives alone. This morning around 6 AM she was attempting to move from one close stricture to the vanity in the bathroom and the leg gave out again and she fell down on it for the second time. She was unable to get herself up and EMS was called. Patient denies any other injuries she had no loss of consciousness she did not hit her head it was a complete mechanical injury. TRAVEL OUTSIDE OF THE [place] IN LAST 30 DAYS: No - HPI Occurred: Just prior to arrival Where: Home Context: Fell from sitting Associated symptoms: None Location of injury/pain: Knee Adult Front & Back: 1 - Area of pain and discomfort Quality of pain: Sharp, Throbbing Pain Level: 4 Prehospital interventions: Analgesia - Related data Allergies/Adverse Reactions: No Known Allergies Allergy (Verified 10/31/16 09:22) Past Medical History - General Information source: Patient - Social History Smoking Status: Current Every Day Smoker Cigarette use (# per day): Yes - 1/2 pack/day Chew tobacco use (# tins/day): No Smoking Education Provided: Yes Family History: Reviewed & Not Pertinent - Past Medical History Cardiac Medical History: Reports: Hx DVT, Hx Hypercholesterolemia, Hx Hypertension - medicated Denies: Hx Heart Attack Pulmonary Medical History: Reports: Hx COPD Denies: Hx Asthma Neurological Medical History: Denies: Hx Cerebrovascular Accident, Hx Seizures Endocrine Medical History: Reports: Hx Diabetes Mellitus Type 2 Renal/ Medical History: Denies: Hx Peritoneal Dialysis GI Medical History: Reports: Hx Gastroesophageal Reflux Disease. Denies: Hx Hepatitis, Hx Hiatal Hernia, Hx Ulcer Psychiatric Medical History: Reports: Hx Depression Infectious Medical History: Denies: Hx Hepatitis Past Surgical History: Denies: Hx Hysterectomy, Hx Mastectomy, Hx Open Heart Surgery, Hx Pacemaker - Immunizations Hx Diphtheria, Pertussis, Tetanus Vaccination: Yes Hx Pneumococcal Vaccination: 11/14/09 Review of Systems - Review of Systems Constitutional: No symptoms reported EENT: No symptoms reported Cardiovascular: No symptoms reported Respiratory: No symptoms reported Gastrointestinal: No symptoms reported Genitourinary: No symptoms reported Female Genitourinary: No symptoms reported Musculoskeletal: See HPI, Joint pain, Joint swelling Skin: No symptoms reported Hematologic/Lymphatic: No symptoms reported Neurological/Psychological: No symptoms reported -: Yes All other systems reviewed and negative Physical Exam - Vital signs Vitals: Temp Pulse BP Pulse Ox 97.6 F 110 H 108/58 L 100 09/25/18 07:20 09/25/18 07:20 09/25/18 07:20 09/25/18 07:20 Interpretation: Hypotensive, Tachycardic. No: Febrile - Notes Notes: PHYSICAL EXAMINATION: GENERAL: Patient is a well-nourished well-developed 78-year-old female moderately obese with a very high anxiety level is very anxious on physical examination. HEAD: Atraumatic, normocephalic. EYES: Pupils equal round and reactive to light, extraocular movements intact, conjunctiva are normal. ENT: Nares patent, oropharynx clear without exudates. Moist mucous membranes. NECK: Normal range of motion, supple without lymphadenopathy LUNGS: Breath sounds clear to auscultation bilaterally and equal. No wheezes rales or rhonchi. HEART: Tachycardic rate and rhythm without murmurs ABDOMEN: Soft, nontender, nondistended abdomen. No guarding, no rebound. No masses appreciated. Female : deferred Musculoskeletal: Physical examination of patient's bilateral lower extremities shows that the 2 legs have some slight difference in size. The right leg which is delaying of injury shows to be a slightly increased secondary to swelling. Both bilateral lower extremities show discoloration chronic venous insufficiency which is minimal 2 years old per patient. Continuation of the exam of the right knee shows to be very tender to touch patient does have good popliteal pulse and distal pulses are 2+. Patient's cap refill is slightly delayed secondary to her venous insufficiency. Patient has strength to lift right leg up straight and hold it. Palpation of the patella seems to be the worst area of pain and discomfort. There is no deformity of the patella on palpation or visual. There is no abrasions or ecchymosis surrounding the knee. Patient will not allow me to do a full knee exam secondary to pain and discomfort. NEUROLOGICAL: Normal speech, normal gait. Normal sensory, motor exams PSYCH: Normal mood, anxious SKIN: Again visual inspection of the lower extremity shows venous insufficiency of the lower legs with discoloration. There is no sign of ecchymosis or abrasions on the knee right side that had a traumatic incident. Course - Vital Signs Vital signs: Temp Pulse Resp BP Pulse Ox 97.6 F 110 H 108/58 L 100 09/25/18 07:20 09/25/18 07:20 09/25/18 07:20 09/25/18 07:20 Procedures - Immobilization Right Knee Immobilizer type: Knee immobilizer Performed by: PCT Post-Proc Neuro Vasc Exam: Normal, Unchanged from pre-exam Alignment checked and good: Yes Discharge - Discharge Clinical Impression: Strain of knee and leg, right Qualifiers: Encounter type: initial encounter Qualified Code(s): S86.911A - Strain of unspecified muscle(s) and tendon(s) at lower leg level, right leg, initial encounter Condition: Stable Disposition: HOME, SELF-CARE Instructions: Ice & Elevation ([facility]), Suspected Internal Knee Injury ([facility]), Knee Immobilizing Splint ([facility]), Sprained Knee ([facility]), Oral Narcotic Medication ( [facility]) Additional Instructions: As we discussed you need to leave the immobilizer on at all times. When you sleep you may loosen it up. Ice to the area 3 times a day as we also talked about. Since you already have an appointment with orthopedic tomorrow I highly recommend continuation of the immobilizer to see that orthopedic. Since she is not associated with the hospital I am giving you the reading for your knee x- ray. And you take that with you. I gave you something for discomfort and pain you may also take ibuprofen 800 mg 3 times a day. If for any reason you are unable to see your orthopedic and you experience increased pain or discomfort increased swelling or any concerns at all return to ER for recheck. Prescriptions: Hydrocodone/Acetaminophen [[place] 5-325 mg Tablet] 1 tab PO Q6 PRN #12 tablet PRN Reason: Referrals: SONNY MARTÍNEZ MD [Primary Care Provider] - Follow up as needed
--- NOTE | 2018-09-25 08:45 | RADIOLOGY REPORT (SQ) ---
EXAM DESCRIPTION: KNEE RIGHT 3 VIEWS COMPLETED DATE/TIME: 09/25/2018 8:27 am REASON FOR STUDY: Fall on the right side/need sunrise view COMPARISON: None. NUMBER OF VIEWS: Three views. TECHNIQUE: AP, lateral, and sunrise patella radiographic images acquired of the right knee. LIMITATIONS: None. FINDINGS: MINERALIZATION: Normal. BONES: No acute fracture or dislocation. No worrisome bone lesions. JOINT: Mild to moderate narrowing of the medial and lateral compartments of the knee. Mild chondroc alcinosis. No effusion. SOFT TISSUES: Soft tissue vascular calcifications. No soft tissue swelling. OTHER: No other significant finding. IMPRESSION: 1. No acute osseous findings. 2. Mild narrowing of the mediolateral compartments of the knee. Mild chondrocalcinosis noted. TECHNICAL DOCUMENTATION: JOB ID: [id number] [employer]- All Rights Reserved Reading location - IP/workstation name: [email or web address]
[2018-09-25] MEDS ORDERED: HYDROCODONE/ACETAMINOPHEN 5-325 MG TABLET PO ONE (11:07)
[2018-09-25 11:41] VITALS: BP 143/66
== END 2018-09-25 11:42 | disposition home or self-care (01) ==
LOC: ER 07:14
DX: S86.911A Strain of unspecified muscle(s) and tendon(s) at lower leg level, right leg, initial encounter (principal); W19.XXXA Unspecified fall, initial encounter; E66.9 Obesity, unspecified; I87.2 Venous insufficiency (chronic) (peripheral); F17.200 Nicotine dependence, unspecified, uncomplicated; E11.9 Type 2 diabetes mellitus without complications; I10 Essential (primary) hypertension; F41.9 Anxiety disorder, unspecified
CPT/HCPCS: 99284; 96374; 73562; J2060; A9270

== ENCOUNTER → 2018-10-18 | Outpatient (CLI) | payer MEDICARE, OTHER ==
[2018-10-18 11:58] LABS: ANION GAP 5 (5-19); BLOOD UREA NITROGEN 17 mg/dL (7-20); CALCIUM 9.1 mg/dL (8.4-10.2); CARBON DIOXIDE 35 mmol/L (22-30); CHLORIDE 102 mmol/L (98-107); GLUCOSE 125 mg/dL (75-110); POTASSIUM 5.1 mmol/L (3.6-5.0); SODIUM 141.5 mmol/L (137-145)
== END ==
LOC: LAB 11:04
PROVIDERS: ATTEND Physician Assistant Medical
DX: N18.3 Chronic kidney disease, stage 3 (moderate) (principal); D64.9 Anemia, unspecified; I50.9 Heart failure, unspecified; R60.9 Edema, unspecified
CPT/HCPCS: 36415; 80048

== ENCOUNTER 2019-01-07 16:04 | Emergency (ER) | payer MEDICARE, OTHER ==
[2019-01-07 17:14] LABS: ABSOLUTE BASOPHILS # (AUTO) 0.1 10^3/uL (0.0-0.2); ABSOLUTE EOSINOPHILS # (AUTO) 0.1 10^3/uL (0.0-0.6); ABSOLUTE LYMPHOCYTES (AUTO) 2.6 10^3/uL (0.5-4.7); ABSOLUTE MONOCYTES (AUTO) 0.5 10^3/uL (0.1-1.4); ABSOLUTE NEUT (AUTO) 9.3 10^3/uL (1.7-8.2); BASOPHILS % (AUTO) 0.5 % (0-2); EOSINOPHILS % (AUTO) 0.4 % (0-6); HEMATOCRIT 39.1 % (36.0-47.0); HEMOGLOBIN 13.7 g/dL (12.0-15.5); LYMPHOCYTES % (AUTO) 20.9 % (13-45); MEAN CORPUSCULAR HEMOGLOBIN 32.1 pg (27.0-33.4); MEAN CORPUSCULAR VOLUME 92 fl (80-97); MONOCYTES % (AUTO) 4.3 % (3-13); PLATELET COUNT 242 10^3/uL (150-450); RED BLOOD COUNT 4.26 10^6/uL (3.72-5.28); RED CELL DISTRIBUTION WIDTH 13.1 % (11.5-14.0); SEGMENTED NEUTROPHILS % (AUTO) 73.9 % (42-78); TOTAL CELLS COUNTED % (AUTO) 100 %; WHITE BLOOD COUNT 12.6 10^3/uL (4.0-10.5)
[2019-01-07 17:28] LABS: ALANINE AMINOTRANSFERASE 10 U/L (9-52); ALBUMIN 4.6 g/dL (3.5-5.0); ALKALINE PHOSPHATASE 95 U/L (38-126); ANION GAP 13 (5-19); ASPARTATE AMINO TRANSFERASE 32 U/L (14-36); BILIRUBIN,DIRECT 0.3 mg/dL (0.0-0.4); BILIRUBIN,TOTAL 0.7 mg/dL (0.2-1.3); BLOOD UREA NITROGEN 17 mg/dL (7-20); CALCIUM 10.2 mg/dL (8.4-10.2); CARBON DIOXIDE 25 mmol/L (22-30); CHLORIDE 104 mmol/L (98-107); GLUCOSE 146 mg/dL (75-110); POTASSIUM 3.7 mmol/L (3.6-5.0); SODIUM 142.3 mmol/L (137-145); TOTAL PROTEIN 7.5 g/dL (6.3-8.2)
--- NOTE | 2019-01-07 17:33 | RADIOLOGY REPORT (SQ) ---
EXAM DESCRIPTION: CHEST SINGLE VIEW COMPLETED DATE/TIME: 01/07/2019 5:06 pm REASON FOR STUDY: SOB COMPARISON: 08/20/2018 TECHNIQUE: Single frontal radiographic view of the chest acquired. NUMBER OF VIEWS: One view. LIMITATIONS: None. FINDINGS: LUNGS AND PLEURA: No pneumothorax. No consolidation or pleural effusion. Similar scarring in the left lung base. MEDIASTINUM AND HILAR STRUCTURES: Stable. HEART AND VASCULAR STRUCTURES: Stable. BONES: No acute findings. HARDWARE: None in the chest. OTHER: No other significant finding. IMPRESSION: NO ACUTE FINDINGS. TECHNICAL DOCUMENTATION: JOB ID: [id number] [place]-72 2010 [employer]- All Rights Reserved Reading location - IP/workstation name: [email or web address]
--- NOTE | 2019-01-07 18:05 | ER Document Report ---
ED General - General Chief Complaint: Shortness Of Breath Stated Complaint: SHORTNESS OF BREATH Time Seen by Provider: 01/07/19 16:46 Primary Care Provider: SONNY MARTÍNEZ MD [Primary Care Provider] - Follow up as needed Notes: 78-year-old female patient to the emergency department chief complaint of "hyperventilation", also complaining of pain in her hands and feet. Patient has a history of peripheral neuropathy. Is currently on gabapentin. States that the pain is been getting worse recently. Denies any fever. Denies any dysuria. Denies any other major issues at this time. States that she felt like she was going to pass out today. TRAVEL OUTSIDE OF THE [place] IN LAST 30 DAYS: No - HPI Onset/Duration: Gradual, Constant Quality of pain: Burning Severity: Severe Pain Level: 4 Associated symptoms: Weakness - Related Data Allergies/Adverse Reactions: No Known Allergies Allergy (Verified 10/31/16 09:22) Past Medical History - General Information source: Patient - Social History Smoking Status: Current Every Day Smoker Cigarette use (# per day): Yes Frequency of alcohol use: None Drug Abuse: None Lives with: Alone Family History: Reviewed & Not Pertinent Patient has suicidal ideation: No Patient has homicidal ideation: No - Past Medical History Cardiac Medical History: Reports: Hx DVT, Hx Hypercholesterolemia, Hx Hypertension - medicated Denies: Hx Heart Attack Pulmonary Medical History: Reports: Hx COPD Denies: Hx Asthma Neurological Medical History: Denies: Hx Cerebrovascular Accident, Hx Seizures Endocrine Medical History: Reports: Hx Diabetes Mellitus Type 2 Renal/ Medical History: Denies: Hx Peritoneal Dialysis GI Medical History: Reports: Hx Gastroesophageal Reflux Disease. Denies: Hx Hepatitis, Hx Hiatal Hernia, Hx Ulcer Psychiatric Medical History: Reports: Hx Depression Infectious Medical History: Denies: Hx Hepatitis Past Surgical History: Denies: Hx Hysterectomy, Hx Mastectomy, Hx Open Heart Surgery, Hx Pacemaker - Immunizations Hx Diphtheria, Pertussis, Tetanus Vaccination: Yes Hx Pneumococcal Vaccination: 11/14/09 Review of Systems - Review of Systems Notes: Constitutional: denies: Chills, Diaphoresis, Fever, Malaise, +Weakness EENT: denies: Eye discharge, Blurred vision, Tearing, Double vision, Nose congestion, Nose discharge, Throat swelling, Mouth pain Cardiovascular: denies: Palpitations, Heart racing, Orthopnea, Dyspnea, Chest pain Respiratory: denies: Cough, Hurts to breathe, Wheezing, +Shortness of breath Gastrointestinal: denies: Abdominal pain, Diarrhea, Nausea, Vomiting, Black stools, bright red blood in stool Genitourinary: denies: Burning, Dysuria, Discharge, Frequency, Flank pain, Hematuria Musculoskeletal: denies: Joint pain, Joint swelling, Muscle pain, Muscle sti ffness, back pain. complaining of pain and burning sensation in her hands and feet Hematologic/Lymphatic: denies: Anemia, Easy bleeding, Easy bruising, Blood clots Neurological/Psychological: denies: Confusion, Dementia, Depression, Loss of consciousness Skin: No lesions, no masses, no skin breakdown, no abscesses Physical Exam - Vital signs Vitals: Temp Pulse Resp BP Pulse Ox 97.9 F 112 H 36 H 93/46 L 97 01/07/19 16:18 01/07/19 16:18 01/07/19 16:18 01/07/19 16:18 01/07/19 16:18 Interpretation: Normal - General General appearance: Appears well, Alert - HEENT Head: Normocephalic, Atraumatic Eyes: Normal Pupils: PERRL - Respiratory Respiratory status: No respiratory distress Chest status: Nontender Breath sounds: Normal Chest palpation: Normal - Cardiovascular Rhythm: Regular Heart sounds: Normal auscultation Murmur: No - Abdominal Inspection: Normal Distension: No distension Bowel sounds: Normal Tenderness: Nontender Organomegaly: No organomegaly - Back Back: Normal, Nontender - Extremities General upper extremity: Normal inspection, Nontender, Normal color, Normal ROM, Normal temperature General lower extremity: Normal inspection, Nontender, Normal color, Normal ROM, Normal temperature, Normal weight bearing. No: Edema, Venita's sign - Neurological Neuro grossly intact: Yes Cognition: Normal Orientation: AAOx4 [place] Coma Scale Eye Opening: Spontaneous [place] Coma Scale Verbal: Oriented [place] Coma Scale Motor: Obeys Commands [place] Coma Scale Total: 15 Speech: Normal Motor strength normal: LUE, RUE, LLE, RLE Sensory: Normal - Psychological Associated symptoms: Normal affect, Normal mood - Skin Skin Temperature: Warm Skin Moisture: Dry Skin Color: Normal Course - Re-evaluation Re-evalutation: 01/07/19 21:52 Laboratory 01/07/19 01/07/19 01/07/19 16:34 16:34 16:34 WBC 12.6 H RBC 4.26 Hgb 13.7 Hct 39.1 MCV 92 MCH 32.1 MCHC 35.0 RDW 13.1 Plt Count 242 Seg Neutrophils % 73.9 Lymphocytes % 20.9 Monocytes % 4.3 Eosinophils % 0.4 Basophils % 0.5 Absolute Neutrophils 9.3 H Absolute Lymphocytes 2.6 Absolute Monocytes 0.5 Absolute Eosinophils 0.1 Absolute Basophils 0.1 Sodium 142.3 Potassium 3.7 Chloride 104 Carbon Dioxide 25 Anion Gap 13 BUN 17 Creatinine 1.34 H Est GFR ( Amer) 47 L Est GFR (Non-Af Amer) 38 L Glucose 146 H Calcium 10.2 Total Bilirubin 0.7 Direct Bilirubin 0.3 Neonat Total Bilirubin Not Reportable Neonat Direct Bilirubin Not Reportable Neonat Indirect Bili Not Reportable AST 32 ALT 10 Alkaline Phosphatase 95 Creatine Kinase 99 CK-MB (CK-2) Troponin I Total Protein 7.5 Albumin 4.6 Urine Color Urine Appearance Urine pH Ur Specific [place] Urine Protein Urine Glucose (UA) Urine Ketones Urine Blood Urine Nitrite Urine Bilirubin Urine Urobilinogen Ur Leukocyte Esterase Urine WBC (Auto) Urine RBC (Auto) U Hyaline Cast (Auto) Urine Bacteria (Auto) Squamous Epi Cells Auto Urine Mucus (Auto) Urine Ascorbic Acid 01/07/19 01/07/19 16:34 19:30 WBC RBC Hgb Hct MCV MCH MCHC RDW Plt Count Seg Neutrophils % Lymphocytes % Monocytes % Eosinophils % Basophils % Absolute Neutrophils Absolute Lymphocytes Absolute Monocytes Absolute Eosinophils Absolute Basophils Sodium Potassium Chloride Carbon Dioxide Anion Gap BUN Creatinine Est GFR ( Amer) Est GFR (Non-Af Amer) Glucose Calcium Total Bilirubin Direct Bilirubin Neonat Total Bilirubin Neonat Direct Bilirubin Neonat Indirect Bili AST ALT Alkaline Phosphatase Creatine Kinase CK-MB (CK-2) 1.26 Troponin I 0.015 Total Protein Albumin Urine Color YELLOW Urine Appearance SLIGHTLY-CLOUDY Urine pH 7.0 Ur Specific [place] 1.013 Urine Protein 30 H Urine Glucose (UA) NEGATIVE Urine Ketones NEGATIVE Urine Blood SMALL H Urine Nitrite NEGATIVE Urine Bilirubin NEGATIVE Urine Urobilinogen NEGATIVE Ur Leukocyte Esterase NEGATIVE Urine WBC (Auto) 2 Urine RBC (Auto) 1 U Hyaline Cast (Auto) 38 Urine Bacteria (Auto) 1+ Squamous Epi Cells Auto 11 Urine Mucus (Auto) FEW Urine Ascorbic Acid NEGATIVE Chest X-Ray 01/07/19 16:45 IMPRESSION: NO ACUTE FINDINGS. Chest/Abdomen CTA 01/07/19 19:12 IMPRESSION: Negative for thoracic aortic aneurysm or dissection. Negative for pulmonary embolus. Findings again suggestive of pulmonary artery hypertension. Coronary artery calcification. Cholelithiasis. Partial visualization of ectasia as well as infrarenal abdominal aortic aneurysm, as above. Please refer to below recommended criteria for AAA follow-up. AAA Size: Follow-up Recommendation (1): 2.6 - 2.9 cm Every 5 years (2) 3.0 - 3.4 cm Every 3 years 3.5 - 3.9 cm Every 12 months 4.0 - 4.4 cm Every 12 months, vasc consult rec 4.5 - 5.4 cm Every 6 months, vasc consult rec >=5.5 cm Referral to vascular surgeon recommended (1)Based upon the Society for Vascular Surgery Guidelines: J Vasc Surg. 2009 Aug;50(4 Suppl):S2-49 (2)For aortas of max jerome of 2.6-2.9 cm that meet criteria for AAA (>= 1.5 x proximal normal segment). 4 mm groundglass nodule within the lingula. Please refer to below Fleischner Society criteria. This was not definitively present on the prior. 2017 Fleischner Society Recommendations for Single Solid Lung Nodule Follow-Up based on size (average of long- and short-axis diameters) <6 mm Low-Risk Patient: No routine follow-up <6 mm High-Risk Patient: Optional CT at 12 months 6-8 mm Low-Risk Patient: CT at 6-[address] at 18-24 months 6-8 mm High-Risk Patient: CT at 6-[address] at 18-24 months >8 mm Low-Risk Patient: Consider CT, PET/CT or tissue sampling at 3 months >8 mm High-Risk Patient: Same as for low-risk patient . TECHNICAL DOCUMENTATION: Quality ID # 436: Final reports with documentation of one or more dose reduction techniques (e.g., Automated exposure control, adjustment of the mA and/or kV according to patient size, use of iterative reconstruction technique) copyright 2011 [employer]- All Rights Reserved Patient is feeling better. Received some Toradol gabapentin and steroids. I did speak to patient's primary care doctor about her outpatient treatment plan. He will follow-up with her this week. At this time I find no significant evidence of patient needs to be admitted at this time. Patient has a chronic elevated WBC count which needs to be evaluated. Of note the CT scan did show a 4 mm groundglass nodule. Patient also has infrarenal aneurysm which will need outpatient follow-up. Patient has no abdominal pain. At this time I am recommending that she see a cork painter and grader, outpatient follow-up with for her aorta and pulmonary nodule, smoking cessation. Return if worsening symptoms or concerns. - Vital Signs Vital signs: Temp Pulse Resp BP Pulse Ox 97.9 F 112 H 15 133/73 H 96 01/07/19 16:18 01/07/19 16:18 01/07/19 19:01 01/07/19 19:01 01/07/19 19:01 - Laboratory Result Diagrams: 01/07/19 16:34 01/07/19 16:34 Laboratory results interpreted by me: 01/07/19 01/07/19 01/07/19 16:34 16:34 19:30 WBC 12.6 H Absolute Neutrophils 9.3 H Creatinine 1.34 H Est GFR ( Amer) 47 L Est GFR (Non-Af Amer) 38 L Glucose 146 H Urine Protein 30 H Urine Blood SMALL H - EKG Interpretation by Dc EKG shows normal: Sinus rhythm, Intervals, QRS Complexes, ST-T Waves [place]/QRS: Left axis deviation Discharge - Discharge Clinical Impression: Pulmonary nodule, Abdominal aortic aneurysm (AAA) 3.0 cm to 5.0 cm in diameter in female Peripheral neuropathy Qualifiers: Peripheral neuropathy type: polyneuropathy, unspecified Qualified Code(s): G62.9 - Polyneuropathy, unspecified Condition: Good Disposition: HOME, SELF-CARE Instructions: Neuropathy ([facility]), Aortic Aneurysm ([facility]) Additional Instructions: Your workup today reveals that you have peripheral neuropathy. There was also a pulmonary nodule seen on the CT scan. There was also an incidental finding of a mild dilation in your abdominal aorta which will need an outpatient follow-up. Please discuss these results with your primary care doctor so that he/she may schedule appropriate outpatient follow-up testing. Continue to take your medications as prescribed. Take the steroid dose pack/steroids as prescribed. Return for worsening symptoms or concerns. Prescriptions: Methylprednisolone [Medrol 4 Mg Tablet] 4 mg PO DAILY #21 tablet Referrals: SONNY MARTÍNEZ MD [Primary Care Provider] - Follow up as needed
[2019-01-07] MEDS ORDERED: KETOROLAC TROMETHAMINE INJ/PF 30 MG/1 ML SDV IV ONE ×2 (19:12→22:30)
[2019-01-07] MEDS ORDERED: GABAPENTIN 300 MG CAPSULE PO ONE ×2 (19:12→22:30)
[2019-01-07 20:06] LABS: CREATINE KINASE MB 1.26 ng/mL (<4.55); TROPONIN I 0.015 ng/mL
[2019-01-07 20:15] LABS: APPEARANCE,URINE SLIGHTLY-CLOUDY; BILIRUBIN,URINE NEGATIVE (NEGATIVE); COLOR,URINE YELLOW; GLUCOSE, URINE NEGATIVE (NEGATIVE); KETONES,URINE NEGATIVE (NEGATIVE); LEUKOCYTE ESTERASE,URINE NEGATIVE (NEGATIVE); NITRITE,URINE NEGATIVE (NEGATIVE); PROTEIN,URINE 30 mg/dL (NEGATIVE); URINE SPECIFIC GRAVITY 1.013; UROBILINOGEN,URINE NEGATIVE mg/dL (<2.0)
--- NOTE | 2019-01-07 20:52 | RADIOLOGY REPORT (SQ) ---
EXAM DESCRIPTION: CT CHEST ANGIOGRAPHY WITHOUT THEN WITH IV CONTRAST COMPLETED DATE/TME: 01/07/2019 19:12 CLINICAL HISTORY: 78 years, Female, sob, hx of clots COMPARISON: 08/20/2018 CT chest TECHNIQUE: 579 Images stored on PACS. All CT scanners at this facility use dose modulation, iterative reconstruction, and/or weight based dosing when appropriate to reduce radiation dose to as low as reasonably achievable (ALARA). [facility]: Dose Right [facility]: CareDose [facility]: Dose Right [facility]: Teradose 4D [facility]: [employer] LIMITATIONS: None. FINDINGS: The visualized thyroid gland enhances normally. The mediastinal vasculature enhances normally. There is no intraluminal filling defect to suggest pulmonary nodules. Negative for thoracic aortic aneurysm or dissection. Enlargement of the pulmonary arteries, concerning for pulmonary artery hypertension also described previously. Mild atheromatous change of the thoracic aorta. Coronary artery calcification. No mediastinal or hilar adenopathy. Calcified right hilar lymph nodes are present. Moderate-sized hiatal hernia. Limited evaluation of the upper abdomen shows cholelithiasis. Bilateral renal cysts are partially seen. Ectasia of the infrarenal abdominal aorta, with mild aneurysmal dilatation measuring approximately 3.8 cm AP by 3.3 cm transverse. There is also aneurysmal dilatation of the more cephalad portion of the infrarenal abdominal aorta measuring 4.3 cm AP by 3.6 cm transverse. Osseous structures are grossly intact. There is no pneumothorax. The visualized airways are patent. Minor scarring in the lung bases bilaterally. Groundglass nodule within the lingula, measuring 4 mm. This was not definitively present previously. Lungs are otherwise clear. IMPRESSION: Negative for thoracic aortic aneurysm or dissection. Negative for pulmonary embolus. Findings again suggestive of pulmonary artery hypertension. Coronary artery calcification. Cholelithiasis. Partial visualization of ectasia as well as infrarenal abdominal aortic aneurysm, as above. Please refer to below recommended criteria for AAA follow-up. AAA Size: Follow-up Recommendation (1): 2.6 - 2.9 cm Every 5 years (2) 3.0 - 3.4 cm Every 3 years 3.5 - 3.9 cm Every 12 months 4.0 - 4.4 cm Every 12 months, vasc consult rec 4.5 - 5.4 cm Every 6 months, vasc consult rec >=5.5 cm Referral to vascular surgeon recommended (1)Based upon the Society for Vascular Surgery Guidelines: J Vasc Surg. 2009 Aug;50(4 Suppl):S2-49 (2)For aortas of max jerome of 2.6-2.9 cm that meet criteria for AAA (>= 1.5 x proximal normal segment). 4 mm groundglass nodule within the lingula. Please refer to below Fleischner Society criteria. This was not definitively present on the prior. 2017 Fleischner Society Recommendations for Single Solid Lung Nodule Follow-Up based on size (average of long- and short-axis diameters) <6 mm Low-Risk Patient: No routine follow-up <6 mm High-Risk Patient: Optional CT at 12 months 6-8 mm Low-Risk Patient: CT at 6-[address] at 18-24 months 6-8 mm High-Risk Patient: CT at 6-[address] at 18-24 months >8 mm Low-Risk Patient: Consider CT, PET/CT or tissue sampling at 3 months >8 mm High-Risk Patient: Same as for low-risk patient . TECHNICAL DOCUMENTATION: Quality ID # 436: Final reports with documentation of one or more dose reduction techniques (e.g., Automated exposure control, adjustment of the mA and/or kV according to patient size, use of iterative reconstruction technique) copyright 2011 [employer]- All Rights Reserved
[2019-01-07] MEDS ORDERED: METHYLPREDNISOLONE INJ 125 MG/2 ML SDV IV ONE (21:51)
--- NOTE | 2019-01-07 22:32 | EKG REPORT ---
SEVERITY:- OTHERWISE NORMAL ECG - SINUS RHYTHM LEFT AXIS DEVIATION : Confirmed by: Jonathan Isabel MD 07-Jan-2019 22:31:53
[2019-01-07 23:23] VITALS: BP 144/60
== END 2019-01-07 23:40 | disposition home or self-care (01) ==
LOC: ER 16:04
DX: R91.1 Solitary pulmonary nodule (principal); J44.9 Chronic obstructive pulmonary disease, unspecified; E11.42 Type 2 diabetes mellitus with diabetic polyneuropathy; Z79.899 Other long term (current) drug therapy; I71.4 Abdominal aortic aneurysm, without rupture; D72.829 Elevated white blood cell count, unspecified; R53.1 Weakness; R06.02 Shortness of breath; F17.210 Nicotine dependence, cigarettes, uncomplicated; I10 Essential (primary) hypertension
CPT/HCPCS: 93005; 99285; 96374; 96375; 36415; 82553; 82550; 85025; 80053; 81001; 84484; 71045; 71275; 93010; A9270; J2930; J1885

== ENCOUNTER → 2019-01-22 | Outpatient (CLI) | payer MEDICARE, OTHER ==
[2019-01-22 15:04] LABS: ANION GAP 5 (5-19); BLOOD UREA NITROGEN 44 mg/dL (7-20); CALCIUM 9.8 mg/dL (8.4-10.2); CARBON DIOXIDE 29 mmol/L (22-30); CHLORIDE 105 mmol/L (98-107); GLUCOSE 109 mg/dL (75-110); POTASSIUM 4.7 mmol/L (3.6-5.0); SODIUM 139.3 mmol/L (137-145)
== END ==
LOC: LAB 14:08
PROVIDERS: ATTEND Physician Assistant Medical
DX: N18.3 Chronic kidney disease, stage 3 (moderate) (principal); I12.9 Hypertensive chronic kidney disease with stage 1 through stage 4 chronic kidney disease, or unspecified chronic kidney disease
CPT/HCPCS: 36415; 80048

== ENCOUNTER 2019-02-05 11:15 | Inpatient (IN) | payer MEDICARE, OTHER ==
[2019-02-05] MEDS ORDERED: IPRATROPIUM/ALBUTEROL 0.5-2.5 MG/3 ML AMPUL NEB ONE (11:26)
[2019-02-05] MEDS ORDERED: METHYLPREDNISOLONE INJ 125 MG/2 ML SDV IV ONE (11:44)
[2019-02-05] MEDS ORDERED: ALBUTEROL SULFATE 0.083% NEB 2.5 MG/3 ML AMPUL NEB ONE (11:44)
--- NOTE | 2019-02-05 11:45 | ER Document Report ---
ED General - General Chief Complaint: Shortness Of Breath Stated Complaint: DIFFCULTY BREATHING Time Seen by Provider: 02/05/19 11:43 TRAVEL OUTSIDE OF THE [place] IN LAST 30 DAYS: No - HPI Notes: Patient is a 78-year-old female that presents to the emergency department for chief complaint of COPD exacerbation. Patient presented to the ER as a direct admit from Dr. Mccoy's office for acute COPD exacerbation. Patient reports increased shortness of breath over the last 5 days. The only breathing treatment she has been taking at home is Anora once daily. She denies being on any steroids currently. She denies increased sputum but does report intermittent fevers. T-max of 102.0. Patient reports wearing 3 L nasal cannula oxygen at night but not during the day. She denies any associated pain, lightheadedness, or palpitations. Past Medical History: Hyperlipidemia, anxiety, depression, hypertension, diabetes, COPD, AAA Past Surgical History: Negative Social History: Non-smoker, denies drugs and alcohol Family History: Reviewed and noncontributory for presenting illness Allergies: Reviewed, see documented allergy list. REVIEW OF SYSTEMS: CONSTITUTIONAL : fever No chills No diaphoresis No recent illness EENT: No vision changes congestion No sore throat CARDIOVASCULAR: No chest pain No palpitations RESPIRATORY: shortness of breath cough difficulty breathing GASTROINTESTINAL: No abdominal pain No nausea No vomiting No diarrhea GENITOURINARY: No dysuria No hematuria No difficulty urinating MUSCULOSKELETAL: No back pain No leg pain No arm pain SKIN: No rashes No lesions LYMPHATIC: No swollen, enlarged glands. NEUROLOGICAL: No lightheadedness No headache No weakness No paresthesias PSYCHIATRIC: No anxiety No depression PHYSICAL EXAMINATION: Vital signs reviewed, nursing noted reviewed. GENERAL: Well-appearing, well-nourished and in moderate acute distress. HEAD: Atraumatic, normocephalic. EYES: Eyes appear normal, extraocular movements intact, sclera anicteric, conjunctiva are normal. ENT: nares patent, oropharynx clear without exudates. Moist mucous membranes. NECK: Normal range of motion, supple without lymphadenopathy LUNGS: Tachypneic, prolonged expiratory phase, audible wheezing and moderate accessory muscle use, speaking in partial sentences HEART: Regular rate and rhythm without murmurs ABDOMEN: Soft, nontender, normoactive bowel sounds. No rebound, guarding, or rigidity. No masses appreciated. EXTREMITIES: Nontender, good range of motion, no pitting or edema. NEUROLOGICAL: No focal neurological deficits. Moves all extremities spontaneously Motor and sensory grossly intact on exam. PSYCH: Normal mood, normal affect. SKIN: Warm, Dry, normal turgor, no rashes or lesions noted on exposed skin - Related Data Allergies/Adverse Reactions: No Known Allergies Allergy (Verified 02/05/19 11:21) Past Medical History - Social History Smoking Status: Never Smoker Family History: Reviewed & Not Pertinent - Past Medical History Cardiac Medical History: Reports: Hx DVT, Hx Hypercholesterolemia, Hx Hypertens ion - medicated Denies: Hx Heart Attack Pulmonary Medical History: Reports: Hx COPD Denies: Hx Asthma Neurological Medical History: Denies: Hx Cerebrovascular Accident, Hx Seizures Endocrine Medical History: Reports: Hx Diabetes Mellitus Type 2 Renal/ Medical History: Denies: Hx Peritoneal Dialysis GI Medical History: Reports: Hx Gastroesophageal Reflux Disease. Denies: Hx Hepatitis, Hx Hiatal Hernia, Hx Ulcer Psychiatric Medical History: Reports: Hx Depression Infectious Medical History: Denies: Hx Hepatitis Past Surgical History: Denies: Hx Hysterectomy, Hx Mastectomy, Hx Open Heart Kenneth cristiano, Hx Pacemaker - Immunizations Hx Diphtheria, Pertussis, Tetanus Vaccination: Yes Hx Pneumococcal Vaccination: 11/14/09 Physical Exam - Vital signs Vitals: Resp Pulse Ox 25 H 100 02/05/19 11:29 02/05/19 11:29 Course - Re-evaluation Re-evalutation: 02/05/19 11:49 Vitals reviewed. Nursing notes reviewed. Patient is oxygenating at 100% on nasal cannula oxygen. She is receiving aerosols and Solu-Medrol for acute COPD exacerbation. 02/05/19 12:34 Patient reevaluated after aerosols. She is still having significant wheezing and will be given another albuterol treatment. Her work of breathing has improved and she is oxygenating at 100% on 3 L. Patient's x-ray shows no under lying pneumonia. She will be admitted to the hospital for further management. Care was discussed with Dr. Mccoy who would like her to be in the IMCU. Patient in agreement with plan of care. Laboratory 02/05/19 02/05/19 11:35 11:35 WBC 6.9 RBC 3.54 L Hgb 11.2 L Hct 32.6 L MCV 92 MCH 31.6 MCHC 34.4 RDW 13.4 Plt Count 236 Seg Neutrophils % 67.7 Lymphocytes % 23.5 Monocytes % 7.2 Eosinophils % 0.7 Basophils % 0.9 Absolute Neutrophils 4.7 Absolute Lymphocytes 1.6 Absolute Monocytes 0.5 Absolute Eosinophils 0.0 Absolute Basophils 0.1 Sodium 140.0 Potassium 4.2 Chloride 103 Carbon Dioxide 30 Anion Gap 7 BUN 29 H Creatinine 1.47 H Est GFR ( Amer) 42 L Est GFR (Non-Af Amer) 35 L Glucose 119 H Calcium 9.5 Total Bilirubin 0.6 Direct Bilirubin 0.5 H Neonat Total Bilirubin Not Reportable Neonat Direct Bilirubin Not Reportable Neonat Indirect Bili Not Reportable AST 43 H ALT 19 Alkaline Phosphatase 92 Total Protein 7.0 Albumin 3.5 Chest X-Ray 02/05/19 11:43 IMPRESSION: NO ACUTE RADIOGRAPHIC FINDING IN THE CHEST. - Vital Signs Vital signs: Temp Pulse Resp BP Pulse Ox 97.9 F 85 28 H 144/50 H 99 02/05/19 11:45 02/05/19 11:45 02/05/19 11:45 02/05/19 11:45 02/05/19 11:47 - Laboratory Result Diagrams: 02/05/19 11:35 02/05/19 11:35 Laboratory results interpreted by me: 02/05/19 02/05/19 11:35 11:35 RBC 3.54 L Hgb 11.2 L Hct 32.6 L BUN 29 H Creatinine 1.47 H Est GFR ( Amer) 42 L Est GFR (Non-Af Amer) 35 L Glucose 119 H Direct Bilirubin 0.5 H AST 43 H Discharge - Discharge Clinical Impression: COPD exacerbation Condition: Stable Disposition: ADMITTED INPATIENT [facility]mitting Provider[facility] Admitted: [facility]
[2019-02-05 11:56] LABS: ABSOLUTE BASOPHILS # (AUTO) 0.1 10^3/uL (0.0-0.2); ABSOLUTE LYMPHOCYTES (AUTO) 1.6 10^3/uL (0.5-4.7); ABSOLUTE MONOCYTES (AUTO) 0.5 10^3/uL (0.1-1.4); ABSOLUTE NEUT (AUTO) 4.7 10^3/uL (1.7-8.2); BASOPHILS % (AUTO) 0.9 % (0-2); EOSINOPHILS % (AUTO) 0.7 % (0-6); HEMATOCRIT 32.6 % (36.0-47.0); HEMOGLOBIN 11.2 g/dL (12.0-15.5); LYMPHOCYTES % (AUTO) 23.5 % (13-45); MEAN CORPUSCULAR HEMOGLOBIN 31.6 pg (27.0-33.4); MEAN CORPUSCULAR HGB CONC 34.4 g/dL (32.0-36.0); MEAN CORPUSCULAR VOLUME 92 fl (80-97); MONOCYTES % (AUTO) 7.2 % (3-13); PLATELET COUNT 236 10^3/uL (150-450); RED BLOOD COUNT 3.54 10^6/uL (3.72-5.28); RED CELL DISTRIBUTION WIDTH 13.4 % (11.5-14.0); SEGMENTED NEUTROPHILS % (AUTO) 67.7 % (42-78); TOTAL CELLS COUNTED % (AUTO) 100 %; WHITE BLOOD COUNT 6.9 10^3/uL (4.0-10.5)
--- NOTE | 2019-02-05 12:19 | RADIOLOGY REPORT (SQ) ---
EXAM DESCRIPTION: CHEST SINGLE VIEW COMPLETED DATE/TIME: 02/05/2019 12:07 pm REASON FOR STUDY: shortness of breath COMPARISON: 01/07/2019 EXAM PARAMETERS: NUMBER OF VIEWS: One view. TECHNIQUE: Single frontal radiographic view of the chest acquired. RADIATION DOSE: NA LIMITATIONS: None. FINDINGS: LUNGS AND PLEURA: No opacities, masses or pneumothorax. No pleural effusion. MEDIASTINUM AND HILAR STRUCTURES: No masses. Contour normal. HEART AND VASCULAR STRUCTURES: Heart normal in size. Normal vasculature. BONES: No acute findings. HARDWARE: None in the chest. OTHER: No other significant finding. IMPRESSION: NO ACUTE RADIOGRAPHIC FINDING IN THE CHEST. TECHNICAL DOCUMENTATION: JOB ID: [id number] [employer]- All Rights Reserved Reading location - IP/workstation name: [email or web address]
[2019-02-05 12:27] LABS: ALANINE AMINOTRANSFERASE 19 U/L (9-52); ALBUMIN 3.5 g/dL (3.5-5.0); ALKALINE PHOSPHATASE 92 U/L (38-126); ANION GAP 7 (5-19); ASPARTATE AMINO TRANSFERASE 43 U/L (14-36); BILIRUBIN,DIRECT 0.5 mg/dL (0.0-0.4); BILIRUBIN,TOTAL 0.6 mg/dL (0.2-1.3); BLOOD UREA NITROGEN 29 mg/dL (7-20); CALCIUM 9.5 mg/dL (8.4-10.2); CARBON DIOXIDE 30 mmol/L (22-30); CHLORIDE 103 mmol/L (98-107); GLUCOSE 119 mg/dL (75-110); POTASSIUM 4.2 mmol/L (3.6-5.0)
[2019-02-05 13:43] LABS: ARTERIAL BLOOD BASE EXCESS 1.3 mmol/L; ARTERIAL BLOOD H2CO3 1.45 mmol/L (1.05-1.35); ARTERIAL BLOOD HCO3 27.1 mmol/L (20-24); ARTERIAL BLOOD O2 SATURATION 96.7 % (94-98); ARTERIAL BLOOD PCO2 48.2 mmHg (35-45); ARTERIAL BLOOD PH 7.37 (7.35-7.45); ARTERIAL BLOOD PO2 91.7 mmHg (80-100); ARTERIAL BLOOD TOTAL CO2 28.6 mmol/L (21-25)
[2019-02-05 13:45] LABS: ARTERIAL BLOOD FIO2 3L
[2019-02-05] MEDS ORDERED: IPRATROPIUM/ALBUTEROL 0.5-2.5 MG/3 ML AMPUL NEB PRN (18:39)
[2019-02-05 19:39] LABS: LIPASE 207.1 U/L (23-300)
[2019-02-05 19:56] LABS: CREATINE KINASE MB 1.01 ng/mL (<4.55); TROPONIN I 0.023 ng/mL
[2019-02-05 20:00] LABS: FREE T4 (FREE THYROXINE) 1.89 ng/dL (0.78-2.19)
--- NOTE | 2019-02-05 20:03 | PDOC H&P ---
History of Present Illness Admission Date/PCP: 02/05/19 12:29 SONNY MARTÍNEZ MD History of Present Illness: VAISHNAVI CHAVEZ is a 78 year old femaleShe has multiple comorbid conditions in cluding chronic obstructive pulmonary disease, tobacco dependence, peripheral vascular disease, type 2 diabetes mellitus, a recalcitrant smoker. She came to the office for evaluation of respiratory symptoms including cough, shortness of breath, wheezing. She could hardly walk in the office, she was supported and assisted with a wheelchair to the nurses station and to the consultation room for evaluation by me. She could hardly talk because she was very short of breath there was diffuse expiratory wheeze on auscultation of her chest, she was admitted directly from the office to the hospital but no bed was available she was referred to the emergency room on the advice of the nursing sheet mill supervisor., She was evaluated in the ER, chest x-ray was done, blood culture was taken the arterial blood gas on FiO2 3 L, pH 7.37, PO2 91.7, bicarbonate 27.1, oxygen saturation 96.7, PCO2 48.2 arterial blood gases consistent with respiratory acidosis with relative hypoxemia Past Medical History Cardiac Medical History: Reports: DVT, Hyperlipidema, Hypertension - medicated, Peripheral Vascular Disease Pulmonary Medical History: Reports: Chronic Obstructive Pulmonary Disease (COPD) Endocrine Medical History: Reports: Diabetes Mellitus Type 2 Renal/ Medical History: Reports: Other - Chronic kidney disease stage III GI Medical History: Reports: Gastroesophageal Reflux Disease Psychiatric Medical History: Reports: Depression Social History Smoking Status: Never Smoker Frequency of Alcohol Use: None Hx Recreational Drug Use: No Drugs: None Hx Prescription Drug Abuse: No Family History Family History: Reviewed & Not Pertinent Parental Family History Reviewed: Yes Children Family History Reviewed: Yes Sibling(s) Family History Reviewed.: Yes Medication/Allergy Home Medications: Acetaminophen [Tylenol Extra Strength 500 mg Tablet] 500 mg PO Q4HP PRN 02/05/19 Amlodipine Besylate [Norvasc 5 mg Tablet] 5 mg PO QPM 02/05/19 Atorvastatin Calcium [Lipitor 40 mg Tablet] 40 mg PO QHS 02/05/19 Calcium Carbonate/Vitamin D3 [Calcium 500-Vit D3 200 Tablet] 1 tab PO DAILY 02/05/19 Furosemide [Lasix 40 mg Tablet] 20 mg PO QPM 02/05/19 Lisinopril [Prinivil 40 mg Tablet] 40 mg PO DAILY 02/05/19 Meloxicam [Mobic] 7.5 mg PO DAILY 02/05/19 Metoprolol Succinate [Toprol XL 100 mg Tablet] 100 mg PO DAILY 02/05/19 Pregabalin [Lyrica 75 mg Capsule] 75 mg PO Q12 02/05/19 Rivaroxaban [Xarelto 15 mg Tablet] 15 mg PO QPM 02/05/19 Umeclidinium Brm/Vilanterol Tr [Anoro Ellipta 62.5-25 Mcg INH] 1 puff IH DAILY 02/05/19 Venlafaxine HCl [Venlafaxine HCl ER] 150 mg PO QPM 02/05/19 Allergies/Adverse Reactions: No Known Allergies Allergy (Verified 02/05/19 11:21) Review of Systems Constitutional: PRESENT: chills, fever(s) Eyes: ABSENT: visual disturbances Ears: ABSENT: hearing changes Cardiovascular: PRESENT: dyspnea on exertion. ABSENT: chest pain, edema, orthropnea, palpitations Respiratory: PRESENT: cough, dyspnea, sputum Gastrointestinal: ABSENT: abdominal pain, constipation, diarrhea, hematemesis, hematochezia, nausea, vomiting Genitourinary: ABSENT: dysuria, hematuria Musculoskeletal: ABSENT: joint swelling Integumentary: ABSENT: rash, wounds Neurological: ABSENT: abnormal gait, abnormal speech, confusion, dizziness, f ocal weakness, syncope Psychiatric: ABSENT: anxiety, depression, homidical ideation, suicidal ideation Endocrine: ABSENT: cold intolerance, heat intolerance, menstrual abnormalities, polydipsia, polyuria Hematologic/Lymphatic: ABSENT: easy bleeding, easy bruising, lymphadenopathy Physical Exam Vital Signs: Temp Pulse Resp BP Pulse Ox 97.9 F 85 20 141/58 H 96 02/05/19 11:45 02/05/19 11:45 02/05/19 19:01 02/05/19 19:01 02/05/19 19:00 Intake & Output 02/04/19 02/05/19 02/06/19 06:59 06:59 06:59 Weight 86.183 kg General appearance: PRESENT: other - Patient is alert, she is in severe distress with retraction of the intercostal muscles Head exam: PRESENT: atraumatic, normocephalic Eye exam: PRESENT: PERRLA Ear exam: PRESENT: normal external ear exam Neck exam: PRESENT: full ROM Respiratory exam: PRESENT: accessory muscle use, retraction, wheezes Cardiovascular exam: PRESENT: +S1, +S2 Vascular exam: PRESENT: normal capillary refill GI/Abdominal exam: PRESENT: normal bowel sounds, soft Rectal exam: PRESENT: deferred Neurological exam: PRESENT: alert, CN II-XII grossly intact Psychiatric exam: PRESENT: appropriate affect, normal mood Skin exam: PRESENT: dry, intact, warm Results Laboratory Results: 02/05/19 11:35 02/05/19 11:35 02/05/19 02/05/19 02/05/19 11:35 11:35 12:21 WBC 6.9 RBC 3.54 L Hgb 11.2 L Hct 32.6 L MCV 92 MCH 31.6 MCHC 34.4 RDW 13.4 Plt Count 236 Seg Neutrophils % 67.7 Lymphocytes % 23.5 Monocytes % 7.2 Eosinophils % 0.7 Basophils % 0.9 Absolute Neutrophils 4.7 Absolute Lymphocytes 1.6 Absolute Monocytes 0.5 Absolute Eosinophils 0.0 Absolute Basophils 0.1 Carbonic Acid Cancelled HCO3/H2CO3 Ratio Cancelled ABG pH Cancelled ABG pCO2 Cancelled ABG pO2 Cancelled ABG HCO3 Cancelled ABG O2 Saturation Cancelled ABG Base Excess Cancelled FiO2 Cancelled Sodium 140.0 Potassium 4.2 Chloride 103 Carbon Dioxide 30 Anion Gap 7 BUN 29 H Creatinine 1.47 H Est GFR ( Amer) 42 L Est GFR (Non-Af Amer) 35 L Glucose 119 H Calcium 9.5 Phosphorus Magnesium Total Bilirubin 0.6 AST 43 H ALT 19 Alkaline Phosphatase 92 Ammonia Total Protein 7.0 Albumin 3.5 Amylase Lipase 02/05/19 02/05/19 02/05/19 13:22 19:07 19:07 WBC RBC Hgb Hct MCV MCH MCHC RDW Plt Count Seg Neutrophils % Lymphocytes % Monocytes % Eosinophils % Basophils % Absolute Neutrophils Absolute Lymphocytes Absolute Monocytes Absolute Eosinophils Absolute Basophils Carbonic Acid 1.45 H HCO3/H2CO3 Ratio 18:1 ABG pH 7.37 ABG pCO2 48.2 H ABG pO2 91.7 ABG HCO3 27.1 H ABG O2 Saturation 96.7 ABG Base Excess 1.3 FiO2 3L Sodium Potassium Chloride Carbon Dioxide Anion Gap BUN Creatinine Est GFR ( Amer) Est GFR (Non-Af Amer) Glucose Calcium Phosphorus 5.0 H Magnesium 1.7 Total Bilirubin AST ALT Alkaline Phosphatase Ammonia < 8.7 L Total Protein Albumin Amylase 81 Lipase 207.1 02/05/19 02/05/19 02/05/19 11:35 16:46 19:07 Creatine Kinase 36 Troponin I 0.030 0.028 Impressions: Chest X-Ray 02/05/19 11:43 IMPRESSION: NO ACUTE RADIOGRAPHIC FINDING IN THE CHEST. Assessment & Plan - Diagnosis (1) Acute hypercapnic respiratory failure Is this a current diagnosis for this admission?: Yes Plan: Patient is not presently requiring noninvasive positive pressure relation, continue oxygen via nasal canula (2) COPD exacerbation Is this a current diagnosis for this admission?: Yes Plan: Start patient on intravenous Solu-Medrol, bronchodilators (3) Chronic kidney disease, stage 3 Is this a current diagnosis for this admission?: Yes (4) T2DM (type 2 diabetes mellitus) Qualifiers: Diabetes mellitus skilled nursing insulin use: without termite control servicer use Diabetes mellitus complication status: with kidney complications Diabetes mellitus complication detail: with chronic kidney disease Chronic kidney disease stage: stage 3 (moderate) Qualified Code(s): E11.22 - Type 2 diabetes mellitus with diabetic chronic kidney disease; N18.3 - Chronic kidney disease, stage 3 (moderate) Is this a current diagnosis for this admission?: Yes
[2019-02-05 20:14] LABS: THYROID STIMULATING HORMONE 0.37 uIU/mL (0.47-4.68)
--- NOTE | 2019-02-05 21:26 | EKG REPORT ---
SEVERITY:- OTHERWISE NORMAL ECG - SINUS RHYTHM LEFT AXIS DEVIATION : Confirmed by: Roma Robertson MD 05-Feb-2019 21:25:55
[2019-02-05 21:40] LABS: INTERNATIONAL RATION (INR) 1.01; PARTIAL THROMBOPLASTIN TIME 32.2 SEC (23.5-35.8); PROTHROMBIN TIME 13.8 SEC (11.4-15.4)
[2019-02-05] MEDS: METHYLPREDNISOLONE INJ 125 MG/2 ML SDV IV SCH (22:21)
[2019-02-05] MEDS ORDERED: (PENDING PHARMACY ID) (Umeclidinium Brm/Vilanterol Tr [Anoro Ellipta 62.5-25 Mcg Inh] 1 PU IH SCH (22:45)
[2019-02-05] MEDS ORDERED: ACETAMINOPHEN SOLN 325 MG/10.15 ML UDCUP PO PRN (23:15)
[2019-02-05] MEDS ORDERED: VENLAFAXINE HCL 75 MG CAP.SR.24H PO ONE (23:30)
[2019-02-05] MEDS ORDERED: FUROSEMIDE 40 MG TABLET PO ONE (23:30)
[2019-02-05] MEDS ORDERED: PREGABALIN 75 MG CAPSULE PO ONE (23:30)
[2019-02-05] MEDS ORDERED: RIVAROXABAN 15 MG TABLET PO ONE (23:30)
[2019-02-05] MEDS ORDERED: ATORVASTATIN CALCIUM 40 MG TABLET PO ONE (23:30)
[2019-02-06 01:43] LABS: CREATINE KINASE MB 1.42 ng/mL (<4.55); TROPONIN I 0.02 ng/mL
[2019-02-06] MEDS: METHYLPREDNISOLONE INJ 125 MG/2 ML SDV IV SCH ×3 (06:14→22:29)
[2019-02-06 08:02] LABS: ABSOLUTE LYMPHOCYTES (AUTO) 0.7 10^3/uL (0.5-4.7); ABSOLUTE MONOCYTES (AUTO) 0.2 10^3/uL (0.1-1.4); HEMATOCRIT 31.1 % (36.0-47.0); HEMOGLOBIN 10.6 g/dL (12.0-15.5); LYMPHOCYTES % (AUTO) 8.9 % (13-45); MEAN CORPUSCULAR VOLUME 91 fl (80-97); MONOCYTES % (AUTO) 2.8 % (3-13); PLATELET COUNT 260 10^3/uL (150-450); RED BLOOD COUNT 3.41 10^6/uL (3.72-5.28); RED CELL DISTRIBUTION WIDTH 13.3 % (11.5-14.0); SEGMENTED NEUTROPHILS % (AUTO) 88.3 % (42-78); TOTAL CELLS COUNTED % (AUTO) 100 %; WHITE BLOOD COUNT 7.9 10^3/uL (4.0-10.5)
[2019-02-06 08:20] LABS: APPEARANCE,URINE CLOUDY; BILIRUBIN,URINE NEGATIVE (NEGATIVE); COLOR,URINE YELLOW; GLUCOSE, URINE NEGATIVE (NEGATIVE); KETONES,URINE NEGATIVE (NEGATIVE); LEUKOCYTE ESTERASE,URINE NEGATIVE (NEGATIVE); NITRITE,URINE NEGATIVE (NEGATIVE); PROTEIN,URINE 30 mg/dL (NEGATIVE); URINE SPECIFIC GRAVITY 1.016; UROBILINOGEN,URINE NEGATIVE mg/dL (<2.0)
[2019-02-06 08:25] LABS: ALANINE AMINOTRANSFERASE 16 U/L (9-52); ALBUMIN 3.3 g/dL (3.5-5.0); ALKALINE PHOSPHATASE 95 U/L (38-126); ANION GAP 11 (5-19); ASPARTATE AMINO TRANSFERASE 24 U/L (14-36); BILIRUBIN,DIRECT 0.4 mg/dL (0.0-0.4); BILIRUBIN,TOTAL 0.5 mg/dL (0.2-1.3); BLOOD UREA NITROGEN 34 mg/dL (7-20); CALCIUM 9.5 mg/dL (8.4-10.2); CARBON DIOXIDE 24 mmol/L (22-30); CHLORIDE 107 mmol/L (98-107); CHOLESTEROL 131.62 mg/dL (0-200); CREATINE KINASE 58 U/L (30-135); GLUCOSE 207 mg/dL (75-110); POTASSIUM 4.3 mmol/L (3.6-5.0); SODIUM 141.5 mmol/L (137-145); TOTAL PROTEIN 6.2 g/dL (6.3-8.2); TRIGLYCERIDES 161 mg/dL (<150)
[2019-02-06 08:32] LABS: URINE AMPHETAMINES SCREEN NEGATIVE; URINE BARBITURATES SCREEN NEGATIVE; URINE BENZODIAZEPINES SCREEN NEGATIVE; URINE COCAINE SCREEN NEGATIVE; URINE MARIJUANA (THC) SCREEN NEGATIVE; URINE METHADONE SCREEN NEGATIVE; URINE PHENCYCLIDINE SCREEN NEGATIVE
[2019-02-06 08:39] LABS: DIRECT LDL 62 mg/dL (<100)
[2019-02-06 08:41] LABS: VLDL CHOLESTEROL 32.2 mg/dL (10-31)
[2019-02-06 08:47] LABS: CREATINE KINASE MB 1.62 ng/mL (<4.55); TROPONIN I 0.022 ng/mL
[2019-02-06] MEDS: CALCIUM CARBONATE 250 MG/VITAMIN D3 125 UNIT TABLET PO SCH (11:11)
[2019-02-06] MEDS: METOPROLOL SUCCINATE 50 MG TAB.SR.24H PO SCH (11:11)
[2019-02-06] MEDS: LISINOPRIL 10 MG TABLET PO SCH (11:12)
[2019-02-06] MEDS: PREGABALIN 75 MG CAPSULE PO SCH ×2 (11:12→22:29)
[2019-02-06] MEDS: VANCOMYCIN HCL 1,500 MG in DEXTROSE 5%-WATER 250 ML IV SCH (15:30)
[2019-02-06] MEDS: FUROSEMIDE 40 MG TABLET PO SCH (18:48)
[2019-02-06] MEDS: AMLODIPINE BESYLATE 5 MG TABLET PO SCH (18:48)
[2019-02-06] MEDS: VENLAFAXINE HCL 75 MG CAP.SR.24H PO SCH (18:48)
[2019-02-06] MEDS: RIVAROXABAN 15 MG TABLET PO SCH (18:48)
--- NOTE | 2019-02-06 19:18 | PDOC PROGRESS REPORT ---
Subjective Progress Note for:: 02/06/19 Subjective:: Patient was seen by the bedside, The blood culture is growing gram positive cocci in clusters, this suggest Staphylococcus aureus, Reason For Visit: ACUTE COPD EXACERBATION, MULTIPLE CO-MORBID Physical Exam Vital Signs: Temp Pulse Resp BP Pulse Ox 98.1 F 72 25 H 132/60 H 97 02/06/19 15:04 02/06/19 15:04 02/06/19 15:04 02/06/19 15:04 02/06/19 15:04 Intake & Output 02/05/19 02/06/19 02/07/19 06:59 06:59 06:59 Intake Total 250 Balance 250 Weight 186.8 kg 86.183 kg General appearance: PRESENT: mild distress Eye exam: PRESENT: PERRLA Respiratory exam: PRESENT: wheezes Cardiovascular exam: PRESENT: +S1, +S2 GI/Abdominal exam: PRESENT: soft Neurological exam: PRESENT: alert Results Laboratory Results: 02/06/19 07:37 02/06/19 07:37 02/05/19 02/05/19 02/05/19 19:07 19:07 19:07 WBC RBC Hgb Hct MCV MCH MCHC RDW Plt Count Seg Neutrophils % Lymphocytes % Monocytes % Eosinophils % Basophils % Absolute Neutrophils Absolute Lymphocytes Absolute Monocytes Absolute Eosinophils Absolute Basophils Sodium Potassium Chloride Carbon Dioxide Anion Gap BUN Creatinine Est GFR ( Amer) Est GFR (Non-Af Amer) Glucose Calcium Phosphorus 5.0 H Magnesium 1.7 Total Bilirubin AST ALT Alkaline Phosphatase Ammonia < 8.7 L Total Protein Albumin Triglycerides Cholesterol LDL Cholesterol Direct VLDL Cholesterol HDL Cholesterol Amylase 81 Lipase 207.1 TSH 0.37 L Free T4 1.89 Urine Color Urine Appearance Urine pH Ur Specific [place] Urine Protein Urine Glucose (UA) Urine Ketones Urine Blood Urine Nitrite Ur Leukocyte Esterase Urine WBC (Auto) Urine RBC (Auto) 02/06/19 02/06/19 02/06/19 07:37 07:37 07:39 WBC 7.9 RBC 3.41 L Hgb 10.6 L Hct 31.1 L MCV 91 MCH 31.0 MCHC 34.0 RDW 13.3 Plt Count 260 Seg Neutrophils % 88.3 H Lymphocytes % 8.9 L Monocytes % 2.8 L Eosinophils % 0.0 Basophils % 0.0 Absolute Neutrophils 7.0 Absolute Lymphocytes 0.7 Absolute Monocytes 0.2 Absolute Eosinophils 0.0 Absolute Basophils 0.0 Sodium 141.5 Potassium 4.3 Chloride 107 Carbon Dioxide 24 Anion Gap 11 BUN 34 H Creatinine 1.51 H Est GFR ( Amer) 41 L Est GFR (Non-Af Amer) 34 L Glucose 207 H Calcium 9.5 Phosphorus Magnesium Total Bilirubin 0.5 AST 24 ALT 16 Alkaline Phosphatase 95 Ammonia Total Protein 6.2 L Albumin 3.3 L Triglycerides 161 H Cholesterol 131.62 LDL Cholesterol Direct 62 VLDL Cholesterol 32.2 H HDL Cholesterol 42 Amylase Lipase TSH Free T4 Urine Color YELLOW Urine Appearance CLOUDY Urine pH 5.0 Ur Specific [place] 1.016 Urine Protein 30 H Urine Glucose (UA) NEGATIVE Urine Ketones NEGATIVE Urine Blood NEGATIVE Urine Nitrite NEGATIVE Ur Leukocyte Esterase NEGATIVE Urine WBC (Auto) 12 Urine RBC (Auto) 6 02/05/19 02/05/19 02/05/19 11:35 16:46 19:07 Creatine Kinase 36 CK-MB (CK-2) Troponin I 0.030 0.028 02/05/19 02/06/19 02/06/19 19:07 01:11 01:11 Creatine Kinase 50 CK-MB (CK-2) 1.01 1.42 Troponin I 0.023 0.020 02/06/19 02/06/19 07:37 07:37 Creatine Kinase 58 CK-MB (CK-2) 1.62 Troponin I 0.022 Impressions: Chest X-Ray 02/05/19 11:43 IMPRESSION: NO ACUTE RADIOGRAPHIC FINDING IN THE CHEST. Assessment & Plan - Diagnosis (1) Acute hypercapnic respiratory failure Is this a current diagnosis for this admission?: Yes Plan: Patient is not presently requiring noninvasive positive pressure relation, continue oxygen via nasal canula (2) COPD exacerbation Is this a current diagnosis for this admission?: Yes Plan: continue intravenous Solu-Medrol, bronchodilators (3) Chronic kidney disease, stage 3 Is this a current diagnosis for this admission?: Yes (4) T2DM (type 2 diabetes mellitus) Qualifiers: Diabetes mellitus fci insulin use: without fci use Diabetes mellitus complication status: with kidney complications Diabetes mellitus complication detail: with chronic kidney disease Chronic kidney disease stage: stage 3 (moderate) Qualified Code(s): E11.22 - Type 2 diabetes mellitus with diabetic chronic kidney disease; N18.3 - Chronic kidney disease, stage 3 (moderate) Is this a current diagnosis for this admission?: Yes (5) Septicemia Is this a current diagnosis for this admission?: Yes Plan: The blood culture grew gram positive cocci in clusters, this suggest Staphylococcus aureus, start vancomycin empirically until culture results returns
[2019-02-06] MEDS: ATORVASTATIN CALCIUM 40 MG TABLET PO SCH (22:29)
[2019-02-07] MEDS: METHYLPREDNISOLONE INJ 125 MG/2 ML SDV IV SCH ×3 (05:27→21:54)
[2019-02-07 05:47] LABS: ABSOLUTE LYMPHOCYTES (AUTO) 1.1 10^3/uL (0.5-4.7); ABSOLUTE MONOCYTES (AUTO) 0.4 10^3/uL (0.1-1.4); ABSOLUTE NEUT (AUTO) 16.3 10^3/uL (1.7-8.2); BASOPHILS % (AUTO) 0.1 % (0-2); HEMATOCRIT 28.9 % (36.0-47.0); LYMPHOCYTES % (AUTO) 6.4 % (13-45); MEAN CORPUSCULAR HEMOGLOBIN 31.2 pg (27.0-33.4); MEAN CORPUSCULAR HGB CONC 34.5 g/dL (32.0-36.0); MEAN CORPUSCULAR VOLUME 90 fl (80-97); MONOCYTES % (AUTO) 2.1 % (3-13); PLATELET COUNT 302 10^3/uL (150-450); RED CELL DISTRIBUTION WIDTH 13.1 % (11.5-14.0); SEGMENTED NEUTROPHILS % (AUTO) 91.4 % (42-78); TOTAL CELLS COUNTED % (AUTO) 100 %
[2019-02-07 05:59] LABS: WHITE BLOOD COUNT 17.9 10^3/uL (4.0-10.5)
[2019-02-07 06:04] LABS: ALANINE AMINOTRANSFERASE 33 U/L (9-52); ALBUMIN 3.2 g/dL (3.5-5.0); ALKALINE PHOSPHATASE 93 U/L (38-126); ANION GAP 7 (5-19); ASPARTATE AMINO TRANSFERASE 35 U/L (14-36); BILIRUBIN,DIRECT 0.2 mg/dL (0.0-0.4); BILIRUBIN,TOTAL 0.3 mg/dL (0.2-1.3); BLOOD UREA NITROGEN 47 mg/dL (7-20); CALCIUM 9.3 mg/dL (8.4-10.2); CARBON DIOXIDE 27 mmol/L (22-30); CHLORIDE 106 mmol/L (98-107); GLUCOSE 192 mg/dL (75-110); POTASSIUM 4.4 mmol/L (3.6-5.0); SODIUM 139.6 mmol/L (137-145); TOTAL PROTEIN 6.1 g/dL (6.3-8.2)
[2019-02-07] MEDS: CALCIUM CARBONATE 250 MG/VITAMIN D3 125 UNIT TABLET PO SCH (09:05)
[2019-02-07] MEDS: METOPROLOL SUCCINATE 50 MG TAB.SR.24H PO SCH (09:05)
[2019-02-07] MEDS: LISINOPRIL 10 MG TABLET PO SCH (09:05)
[2019-02-07] MEDS: PREGABALIN 75 MG CAPSULE PO SCH ×2 (09:05→21:54)
[2019-02-07] MEDS ORDERED: VILANTEROL IH SCH (10:00)
[2019-02-07] MEDS ORDERED: UMECLIDINIUM IH SCH (10:00)
[2019-02-07] MEDS ORDERED: [UNRECOGNIZED DRUG - OTHER] IH SCH (10:00)
[2019-02-07] MEDS ORDERED: IPRATROPIUM/ALBUTEROL 0.5-2.5 MG/3 ML AMPUL NEB SCH (14:00)
[2019-02-07] MEDS: VANCOMYCIN HCL 1,500 MG in DEXTROSE 5%-WATER 250 ML IV SCH (14:09)
--- NOTE | 2019-02-07 16:42 | PDOC PROGRESS REPORT ---
Subjective Progress Note for:: 02/07/19 Subjective:: Patient is in severe respiratory distress she could not finish a sentence, she complain of sore throat I inspected the throat there is no inflammation but there is copious very thick sputum in the pharynx, it seems that she is not able to expectorate her sputum, is very thick and tenacious Reason For Visit: ACUTE COPD EXACERBATION, MULTIPLE CO-MORBID Physical Exam Vital Signs: Temp Pulse Resp BP Pulse Ox 97.6 F 68 18 130/55 H 96 02/07/19 10:58 02/07/19 14:02 02/07/19 14:02 02/07/19 10:58 02/07/19 15:37 Intake & Output 02/06/19 02/07/19 02/08/19 06:59 06:59 06:59 Intake Total 400 450 Output Total 550 Balance -150 450 Weight 186.8 kg 85.8 kg General appearance: PRESENT: severe distress Eye exam: PRESENT: PERRLA Throat exam: PRESENT: other - Thick tenacious sputum in the pharynx Respiratory exam: PRESENT: accessory muscle use, wheezes Cardiovascular exam: PRESENT: +S1, +S2 GI/Abdominal exam: PRESENT: soft Neurological exam: PRESENT: alert Results Laboratory Results: 02/07/19 05:17 02/07/19 05:17 02/06/19 02/07/19 02/07/19 19:20 05:17 05:17 WBC 17.9 H D RBC 3.20 L Hgb 10.0 L Hct 28.9 L MCV 90 MCH 31.2 MCHC 34.5 RDW 13.1 Plt Count 302 Seg Neutrophils % 91.4 H Lymphocytes % 6.4 L Monocytes % 2.1 L Eosinophils % 0.0 Basophils % 0.1 Absolute Neutrophils 16.3 H Absolute Lymphocytes 1.1 Absolute Monocytes 0.4 Absolute Eosinophils 0.0 Absolute Basophils 0.0 Sodium 139.6 Potassium 4.4 Chloride 106 Carbon Dioxide 27 Anion Gap 7 BUN 47 H Creatinine 1.32 H Est GFR ( Amer) 47 L Est GFR (Non-Af Amer) 39 L Glucose 192 H Calcium 9.3 Total Bilirubin 0.3 AST 35 ALT 33 Alkaline Phosphatase 93 Total Protein 6.1 L Albumin 3.2 L PTH Intact 66.4 H 02/06/19 07:39 Clean Catch Midstream Urine Culture - Final Mixed Urogenital Amrita 02/05/19 02/05/19 02/05/19 11:35 16:46 19:07 Creatine Kinase 36 CK-MB (CK-2) Troponin I 0.030 0.028 02/05/19 02/06/19 02/06/19 19:07 01:11 01:11 Creatine Kinase 50 CK-MB (CK-2) 1.01 1.42 Troponin I 0.023 0.020 02/06/19 02/06/19 07:37 07:37 Creatine Kinase 58 CK-MB (CK-2) 1.62 Troponin I 0.022 Impressions: Chest X-Ray 02/05/19 11:43 IMPRESSION: NO ACUTE RADIOGRAPHIC FINDING IN THE CHEST. Assessment & Plan - Diagnosis (1) Acute hypercapnic respiratory failure Is this a current diagnosis for this admission?: Yes Plan: Continue oxygen and also as needed N IPPV (2) COPD exacerbation Is this a current diagnosis for this admission?: Yes Plan: Change the frequency of the bronchodilators to every 4 hours on schedule, continue IV Solu-Medrol (3) Chronic kidney disease, stage 3 Is this a current diagnosis for this admission?: Yes (4) T2DM (type 2 diabetes mellitus) Qualifiers: Diabetes mellitus clinical support associate insulin use: without halfway use Diabetes mellitus complication status: with kidney complications Diabetes mellitus complication detail: with chronic kidney disease Chronic kidney disease stage: stage 3 (moderate) Qualified Code(s): E11.22 - Type 2 diabetes mellitus with diabetic chronic kidney disease; N18.3 - Chronic kidney disease, stage 3 (moderate) Is this a current diagnosis for this admission?: Yes (5) Septicemia Is this a current diagnosis for this admission?: Yes Plan: Continue IV vancomycin until final culture results
[2019-02-07] MEDS: FUROSEMIDE 40 MG TABLET PO SCH (17:24)
[2019-02-07] MEDS: AMLODIPINE BESYLATE 5 MG TABLET PO SCH (17:25)
[2019-02-07] MEDS: RIVAROXABAN 15 MG TABLET PO SCH (17:25)
[2019-02-07] MEDS: VENLAFAXINE HCL 75 MG CAP.SR.24H PO SCH (17:25)
[2019-02-07] MEDS: IPRATROPIUM/ALBUTEROL 0.5-2.5 MG/3 ML AMPUL NEB SCH (20:35)
[2019-02-07] MEDS: ATORVASTATIN CALCIUM 40 MG TABLET PO SCH (21:53)
[2019-02-08] MEDS: IPRATROPIUM/ALBUTEROL 0.5-2.5 MG/3 ML AMPUL NEB SCH ×6 (00:11→21:08)
[2019-02-08] MEDS: METHYLPREDNISOLONE INJ 125 MG/2 ML SDV IV SCH ×3 (05:15→21:46)
[2019-02-08 05:29] LABS: ABSOLUTE MONOCYTES (AUTO) 0.4 10^3/uL (0.1-1.4); BASOPHILS % (AUTO) 0.1 % (0-2); HEMATOCRIT 26.6 % (36.0-47.0); HEMOGLOBIN 9.2 g/dL (12.0-15.5); MEAN CORPUSCULAR HEMOGLOBIN 31.4 pg (27.0-33.4); MEAN CORPUSCULAR HGB CONC 34.7 g/dL (32.0-36.0); MEAN CORPUSCULAR VOLUME 90 fl (80-97); MONOCYTES % (AUTO) 2.2 % (3-13); PLATELET COUNT 284 10^3/uL (150-450); RED BLOOD COUNT 2.94 10^6/uL (3.72-5.28); RED CELL DISTRIBUTION WIDTH 13.4 % (11.5-14.0); SEGMENTED NEUTROPHILS % (AUTO) 91.7 % (42-78); TOTAL CELLS COUNTED % (AUTO) 100 %; WHITE BLOOD COUNT 16.3 10^3/uL (4.0-10.5)
[2019-02-08 05:58] LABS: ALANINE AMINOTRANSFERASE 31 U/L (9-52); ALKALINE PHOSPHATASE 87 U/L (38-126); ANION GAP 7 (5-19); ASPARTATE AMINO TRANSFERASE 27 U/L (14-36); BILIRUBIN,DIRECT 0.3 mg/dL (0.0-0.4); BILIRUBIN,TOTAL 0.3 mg/dL (0.2-1.3); BLOOD UREA NITROGEN 52 mg/dL (7-20); CALCIUM 9.6 mg/dL (8.4-10.2); CARBON DIOXIDE 28 mmol/L (22-30); CHLORIDE 105 mmol/L (98-107); GLUCOSE 206 mg/dL (75-110); POTASSIUM 4.4 mmol/L (3.6-5.0); SODIUM 140.2 mmol/L (137-145); TOTAL PROTEIN 5.7 g/dL (6.3-8.2)
[2019-02-08] MEDS: LISINOPRIL 10 MG TABLET PO SCH (10:14)
[2019-02-08] MEDS: CALCIUM CARBONATE 250 MG/VITAMIN D3 125 UNIT TABLET PO SCH (10:15)
[2019-02-08] MEDS: METOPROLOL SUCCINATE 50 MG TAB.SR.24H PO SCH (10:15)
[2019-02-08] MEDS: PREGABALIN 75 MG CAPSULE PO SCH ×2 (10:15→21:46)
[2019-02-08] MEDS: VANCOMYCIN HCL 1,500 MG in DEXTROSE 5%-WATER 250 ML IV SCH (15:40)
[2019-02-08] MEDS: AMLODIPINE BESYLATE 5 MG TABLET PO SCH (18:06)
[2019-02-08] MEDS: FUROSEMIDE 20 MG TABLET PO SCH (18:07)
[2019-02-08] MEDS: RIVAROXABAN 15 MG TABLET PO SCH (18:07)
[2019-02-08] MEDS: VENLAFAXINE HCL 75 MG CAP.SR.24H PO SCH (18:07)
--- NOTE | 2019-02-08 19:56 | PDOC PROGRESS REPORT ---
Subjective Progress Note for:: 02/08/19 Subjective:: Patient seen by the bedside the blood culture grew staph epidermidis suggesting that this is contamination Reason For Visit: ACUTE COPD EXACERBATION, MULTIPLE CO-MORBID Physical Exam Vital Signs: Temp Pulse Resp BP Pulse Ox 97.5 F 67 18 135/57 H 96 02/08/19 16:22 02/08/19 16:50 02/08/19 16:50 02/08/19 16:22 02/08/19 16:50 Intake & Output 02/07/19 02/08/19 02/09/19 06:59 06:59 06:59 Intake Total 400 1120 487 Output Total 550 Balance -150 1120 487 Weight 85.8 kg 85.7 kg Head exam: PRESENT: other - Patient is alert but sleepy Eye exam: PRESENT: PERRLA Respiratory exam: PRESENT: wheezes Cardiovascular exam: PRESENT: +S1, +S2 GI/Abdominal exam: PRESENT: soft Neurological exam: PRESENT: alert Results Laboratory Results: 02/08/19 05:14 02/08/19 05:14 02/08/19 02/08/19 05:14 05:14 WBC 16.3 H RBC 2.94 L Hgb 9.2 L Hct 26.6 L MCV 90 MCH 31.4 MCHC 34.7 RDW 13.4 Plt Count 284 Seg Neutrophils % 91.7 H Lymphocytes % 6.0 L Monocytes % 2.2 L Eosinophils % 0.0 Basophils % 0.1 Absolute Neutrophils 15.0 H Absolute Lymphocytes 1.0 Absolute Monocytes 0.4 Absolute Eosinophils 0.0 Absolute Basophils 0.0 Sodium 140.2 Potassium 4.4 Chloride 105 Carbon Dioxide 28 Anion Gap 7 BUN 52 H Creatinine 1.34 H Est GFR ( Amer) 47 L Est GFR (Non-Af Amer) 38 L Glucose 206 H Calcium 9.6 Total Bilirubin 0.3 AST 27 ALT 31 Alkaline Phosphatase 87 Total Protein 5.7 L Albumin 3.0 L 02/05/19 11:35 Blood Blood Culture - Final Staphylococcus Epidermidis 02/05/19 02/05/19 02/05/19 11:35 16:46 19:07 Creatine Kinase 36 CK-MB (CK-2) Troponin I 0.030 0.028 02/05/19 02/06/19 02/06/19 19:07 01:11 01:11 Creatine Kinase 50 CK-MB (CK-2) 1.01 1.42 Troponin I 0.023 0.020 02/06/19 02/06/19 07:37 07:37 Creatine Kinase 58 CK-MB (CK-2) 1.62 Troponin I 0.022 Impressions: Chest X-Ray 02/05/19 11:43 IMPRESSION: NO ACUTE RADIOGRAPHIC FINDING IN THE CHEST. Assessment & Plan - Diagnosis (1) Acute hypercapnic respiratory failure Is this a current diagnosis for this admission?: Yes (2) COPD exacerbation Is this a current diagnosis for this admission?: Yes Plan: Continue IV Solu-Medrol, reduce the dose to 60 mg (3) Chronic kidney disease, stage 3 Is this a current diagnosis for this admission?: Yes (4) T2DM (type 2 diabetes mellitus) Qualifiers: Diabetes mellitus middle or intermediate school principal insulin use: without middle or intermediate school principal use Diabetes mellitus complication status: with kidney complications Diabetes mellitus complication detail: with chronic kidney disease Chronic kidney disease stage: stage 3 (moderate) Qualified Code(s): E11.22 - Type 2 diabetes mellitus with diabetic chronic kidney disease; N18.3 - Chronic kidney disease, stage 3 (moderate) Is this a current diagnosis for this admission?: Yes (5) Septicemia Is this a current diagnosis for this admission?: Yes Plan: Discontinue vancomycin
[2019-02-08] MEDS: ATORVASTATIN CALCIUM 40 MG TABLET PO SCH (21:46)
[2019-02-09] MEDS: IPRATROPIUM/ALBUTEROL 0.5-2.5 MG/3 ML AMPUL NEB SCH ×6 (00:33→20:32)
[2019-02-09] MEDS: METHYLPREDNISOLONE INJ 125 MG/2 ML SDV IV SCH ×2 (06:09→13:38)
[2019-02-09] MEDS: PREGABALIN 75 MG CAPSULE PO SCH ×2 (09:25→21:54)
[2019-02-09] MEDS: METOPROLOL SUCCINATE 50 MG TAB.SR.24H PO SCH (09:25)
[2019-02-09] MEDS: CALCIUM CARBONATE 250 MG/VITAMIN D3 125 UNIT TABLET PO SCH (09:25)
[2019-02-09] MEDS: LISINOPRIL 10 MG TABLET PO SCH (09:25)
[2019-02-09 15:36] LABS: VANCOMYCIN,TROUGH 20.5 ug/mL (5.0-20.0)
[2019-02-09] MEDS: VENLAFAXINE HCL 75 MG CAP.SR.24H PO SCH (17:47)
[2019-02-09] MEDS: RIVAROXABAN 15 MG TABLET PO SCH (17:47)
[2019-02-09] MEDS: AMLODIPINE BESYLATE 5 MG TABLET PO SCH (17:47)
[2019-02-09] MEDS: FUROSEMIDE 20 MG TABLET PO SCH (17:47)
[2019-02-09] MEDS ORDERED: DEXTROSE 40% GEL 15 GM TUBE X 2 PO PRN (18:00)
[2019-02-09] MEDS ORDERED: DEXTROSE 50%-WATER SYRINGE 12.5 GM/25 ML DOSE IV PRN (18:00)
[2019-02-09] MEDS ORDERED: DEXTROSE 40% GEL 15 GM TUBE PO PRN (18:00)
[2019-02-09] MEDS ORDERED: DEXTROSE 50%-WATER SYRINGE 25 GM/50 ML DOSE IV PRN (18:00)
[2019-02-09] MEDS ORDERED: GLUCAGON,HUMAN RECOMB 1 MG INJ IM PRN (18:00)
[2019-02-09] MEDS ORDERED: BENZOCAINE/MENTHOL SORE THROAT LOZENGE BUCCAL PRN (18:02)
[2019-02-09] MEDS: INSULIN LISPRO 100 UNIT/ML 3 ML VIAL SUBCUT SCH ×2 (18:12→21:53)
--- NOTE | 2019-02-09 21:05 | PDOC PROGRESS REPORT ---
Subjective Progress Note for:: 02/09/19 Subjective:: Patient is alert, seen by the bedside Reason For Visit: ACUTE COPD EXACERBATION, MULTIPLE CO-MORBID Physical Exam Vital Signs: Temp Pulse Resp BP Pulse Ox 97.7 F 77 22 H 130/58 H 100 02/09/19 19:33 02/09/19 19:33 02/09/19 19:33 02/09/19 19:33 02/09/19 19:33 Intake & Output 02/08/19 02/09/19 02/10/19 06:59 06:59 06:59 Intake Total 1120 687 100 Balance 1120 687 100 Weight 85.7 kg 86.2 kg General appearance: PRESENT: no acute distress Eye exam: PRESENT: PERRLA Respiratory exam: PRESENT: wheezes Cardiovascular exam: PRESENT: +S1, +S2 GI/Abdominal exam: PRESENT: soft Neurological exam: PRESENT: alert Results Laboratory Results: 02/08/19 05:14 02/08/19 05:14 02/05/19 02/05/19 02/05/19 11:35 16:46 19:07 Creatine Kinase 36 CK-MB (CK-2) Troponin I 0.030 0.028 02/05/19 02/06/19 02/06/19 19:07 01:11 01:11 Creatine Kinase 50 CK-MB (CK-2) 1.01 1.42 Troponin I 0.023 0.020 02/06/19 02/06/19 07:37 07:37 Creatine Kinase 58 CK-MB (CK-2) 1.62 Troponin I 0.022 Impressions: Chest X-Ray 02/05/19 11:43 IMPRESSION: NO ACUTE RADIOGRAPHIC FINDING IN THE CHEST. Assessment & Plan - Diagnosis (1) Acute hypercapnic respiratory failure Is this a current diagnosis for this admission?: Yes Plan: Continue oxygen via nasal cannula (2) COPD exacerbation Is this a current diagnosis for this admission?: Yes Plan: Continue present treatment, Reduce Solu-Medrol to 30 mg IV every 8 hour (3) Chronic kidney disease, stage 3 Is this a current diagnosis for this admission?: Yes (4) T2DM (type 2 diabetes mellitus) Qualifiers: Diabetes mellitus mcfp insulin use: without mcfp use Diabetes mellitus complication status: with kidney complications Diabetes mellitus complication detail: with chronic kidney disease Chronic kidney disease stage: stage 3 (moderate) Qualified Code(s): E11.22 - Type 2 diabetes mellitus with diabetic chronic kidney disease; N18.3 - Chronic kidney disease, stage 3 (moderate) Is this a current diagnosis for this admission?: Yes
[2019-02-09] MEDS: METHYLPREDNISOLONE INJ 40 MG/1 ML SDV IV SCH (21:53)
[2019-02-09] MEDS: ATORVASTATIN CALCIUM 40 MG TABLET PO SCH (21:54)
[2019-02-10] MEDS: IPRATROPIUM/ALBUTEROL 0.5-2.5 MG/3 ML AMPUL NEB SCH ×6 (00:56→20:17)
[2019-02-10] MEDS: METHYLPREDNISOLONE INJ 40 MG/1 ML SDV IV SCH ×3 (05:41→21:42)
[2019-02-10] MEDS: INSULIN LISPRO 100 UNIT/ML 3 ML VIAL SUBCUT SCH ×4 (08:05→21:43)
[2019-02-10] MEDS: LISINOPRIL 10 MG TABLET PO SCH (09:25)
[2019-02-10] MEDS: METOPROLOL SUCCINATE 50 MG TAB.SR.24H PO SCH (09:25)
[2019-02-10] MEDS: CALCIUM CARBONATE 250 MG/VITAMIN D3 125 UNIT TABLET PO SCH (09:25)
[2019-02-10] MEDS: PREGABALIN 75 MG CAPSULE PO SCH ×2 (09:25→21:43)
[2019-02-10] MEDS: AMLODIPINE BESYLATE 5 MG TABLET PO SCH (17:28)
[2019-02-10] MEDS: FUROSEMIDE 20 MG TABLET PO SCH (17:28)
[2019-02-10] MEDS: VENLAFAXINE HCL 75 MG CAP.SR.24H PO SCH (17:29)
[2019-02-10] MEDS: RIVAROXABAN 15 MG TABLET PO SCH (17:29)
--- NOTE | 2019-02-10 18:57 | PDOC PROGRESS REPORT ---
Subjective Progress Note for:: 02/10/19 Subjective:: Patient reported poor appetite and consequent poor PO intake. No nausea, vomiting or abdominal pain. No chest pain. Breathing is improving. No fever or chills. Reason For Visit: ACUTE COPD EXACERBATION, MULTIPLE CO-MORBID Physical Exam Vital Signs: Temp Pulse Resp BP Pulse Ox 98.0 F 78 18 133/52 H 93 02/10/19 15:06 02/10/19 16:20 02/10/19 16:20 02/10/19 15:06 02/10/19 16:20 Intake & Output 02/09/19 02/10/19 02/11/19 06:59 06:59 06:59 Intake Total 687 680 118 Balance 687 680 118 Weight 86.2 kg 83.5 kg 83.5 kg General appearance: PRESENT: no acute distress, obese Head exam: PRESENT: atraumatic, normocephalic Eye exam: PRESENT: conjunctiva pink. ABSENT: scleral icterus Ear exam: PRESENT: normal external ear exam Mouth exam: PRESENT: moist Respiratory exam: PRESENT: decreased breath sounds, rhonchi - minimal, end expiratory phase Cardiovascular exam: PRESENT: RRR. ABSENT: diastolic murmur, rubs, systolic murmur Vascular exam: ABSENT: pallor GI/Abdominal exam: PRESENT: normal bowel sounds, soft. ABSENT: distended, guarding, mass, organolmegaly, rebound, tenderness Extremities exam: ABSENT: pedal edema Neurological exam: PRESENT: alert, awake, oriented to person, oriented to place, oriented to time, oriented to situation, CN II-XII grossly intact. ABSENT: motor sensory deficit Psychiatric exam: PRESENT: appropriate affect, normal mood. ABSENT: homicidal ideation, suicidal ideation Skin exam: PRESENT: dry, warm Results Laboratory Results: 02/08/19 05:14 02/08/19 05:14 02/05/19 02/05/19 02/05/19 11:35 16:46 19:07 Creatine Kinase 36 CK-MB (CK-2) Troponin I 0.030 0.028 02/05/19 02/06/19 02/06/19 19:07 01:11 01:11 Creatine Kinase 50 CK-MB (CK-2) 1.01 1.42 Troponin I 0.023 0.020 02/06/19 02/06/19 07:37 07:37 Creatine Kinase 58 CK-MB (CK-2) 1.62 Troponin I 0.022 Impressions: Chest X-Ray 02/05/19 11:43 IMPRESSION: NO ACUTE RADIOGRAPHIC FINDING IN THE CHEST. Assessment & Plan - Diagnosis (1) Acute hypercapnic respiratory failure Is this a current diagnosis for this admission?: Yes Plan: Improving. Continue current medication management. (2) Acute exacerbation of chronic obstructive airways disease Is this a current diagnosis for this admission?: Yes Plan: Continue current medication management. (3) T2DM (type 2 diabetes mellitus) Qualifiers: Diabetes mellitus retirement insulin use: without dedicated intermodal truck driver use Diabetes mellitus complication status: with kidney complications Diabetes mellitus complication detail: with chronic kidney disease Chronic kidney disease stage: stage 3 (moderate) Qualified Code(s): E11.22 - Type 2 diabetes mellitus with diabetic chronic kidney disease; N18.3 - Chronic kidney disease, stage 3 (moderate) Is this a current diagnosis for this admission?: Yes Plan: Continue current medication management. (4) Chronic kidney disease, stage 3 Is this a current diagnosis for this admission?: Yes Plan: Continue current medication management. - Time Time Spent with patient: 25-34 minutes Medications reviewed and adjusted accordingly: Yes Anticipated discharge: Home with Homehealth Within: Other - Inpatient Certification Based on my medical assessment, after consideration of the patient's comorbidities, presenting symptoms, or acuity I expect that the services needed warrant INPATIENT care.: Yes I certify that my determination is in accordance with my understanding of Medicare's requirements for reasonable and necessary INPATIENT services [42 CFR 412.3e].: Yes Medical Necessity: Significant Comorbidiites Make Outpatient Treatment Too Risky, Need Close Monitoring Due to Risk of Patient Decompensation, Need For Continuous Telemetry Monitoring, Need for Nebulizer Therapy and Monitoring of Response, Risk of Complication if Not Cared For in Hospital, Risk of Diagnosis Which Will Require Inpatient Eval/Care/Monitoring Post Hospital Care: D/C Cafeteria Assistant Documentation - Plan Summary Plan Summary: Continue current medication management. encouraged increase PO intake. Start on Multivitamin 1 tablet po daily.
[2019-02-10] MEDS ORDERED: MULTIVIT-STRESS FORMULA/ZINC TABLET PO ONE (20:00)
[2019-02-10] MEDS: ATORVASTATIN CALCIUM 40 MG TABLET PO SCH (21:43)
[2019-02-11] MEDS: IPRATROPIUM/ALBUTEROL 0.5-2.5 MG/3 ML AMPUL NEB SCH ×6 (00:14→20:32)
[2019-02-11 04:52] LABS: HEMATOCRIT 28.7 % (36.0-47.0); HEMOGLOBIN 9.8 g/dL (12.0-15.5); MEAN CORPUSCULAR HGB CONC 34.1 g/dL (32.0-36.0); MEAN CORPUSCULAR VOLUME 91 fl (80-97); PLATELET COUNT 272 10^3/uL (150-450); RED BLOOD COUNT 3.16 10^6/uL (3.72-5.28); RED CELL DISTRIBUTION WIDTH 13.2 % (11.5-14.0); WHITE BLOOD COUNT 17.3 10^3/uL (4.0-10.5)
[2019-02-11 05:12] LABS: ABSOLUTE LYMPHOCYTES# (MANUAL) 0.7 10^3/uL (0.5-4.7); ABSOLUTE MONOCYTES # (MANUAL) 0.3 10^3/uL (0.1-1.4); ABSOLUTE NEUTROPHILS# (MANUAL) 16.3 10^3/uL (1.7-8.2); BAND NEUTROPHILS % (MANUAL) 1 % (3-5); BASOPHILS % (MANUAL) 0 % (0-2); EOSINOPHILS % (MANUAL) 0 % (0-6); LYMPHOCYTES % (MANUAL) 4 % (13-45); MONOCYTES % (MANUAL) 2 % (3-13); PLATELET COMMENT ADEQUATE; SEGMENTED NEUTROPHILS % (MAN) 93 % (42-78); TOTAL CELLS COUNTED 100
[2019-02-11 05:14] LABS: HYPOCHROMASIA 1+; POLYCHROMASIA SLIGHT
[2019-02-11 05:25] LABS: ALANINE AMINOTRANSFERASE 78 U/L (9-52); ALBUMIN 3.1 g/dL (3.5-5.0); ALKALINE PHOSPHATASE 77 U/L (38-126); ANION GAP 5 (5-19); ASPARTATE AMINO TRANSFERASE 50 U/L (14-36); BILIRUBIN,DIRECT 0.2 mg/dL (0.0-0.4); BILIRUBIN,TOTAL 0.4 mg/dL (0.2-1.3); BLOOD UREA NITROGEN 59 mg/dL (7-20); CALCIUM 9.5 mg/dL (8.4-10.2); CARBON DIOXIDE 30 mmol/L (22-30); CHLORIDE 108 mmol/L (98-107); GLUCOSE 235 mg/dL (75-110); POTASSIUM 4.7 mmol/L (3.6-5.0); TOTAL PROTEIN 5.6 g/dL (6.3-8.2)
[2019-02-11] MEDS: METHYLPREDNISOLONE INJ 40 MG/1 ML SDV IV SCH ×3 (06:33→22:54)
[2019-02-11] MEDS: INSULIN LISPRO 100 UNIT/ML 3 ML VIAL SUBCUT SCH ×4 (08:11→22:53)
[2019-02-11] MEDS: LISINOPRIL 10 MG TABLET PO SCH (10:54)
[2019-02-11] MEDS: MULTIVIT-STRESS FORMULA/ZINC TABLET PO SCH (10:55)
[2019-02-11] MEDS: PREGABALIN 75 MG CAPSULE PO SCH ×2 (10:55→22:54)
[2019-02-11] MEDS: METOPROLOL SUCCINATE 50 MG TAB.SR.24H PO SCH (10:55)
[2019-02-11] MEDS: CALCIUM CARBONATE 250 MG/VITAMIN D3 125 UNIT TABLET PO SCH (10:55)
--- NOTE | 2019-02-11 17:05 | PDOC PROGRESS REPORT ---
Subjective Progress Note for:: 02/11/19 Subjective:: PO intake remain poor. No nausea, vomiting or abdominal pain. No chest pain. breathing is improving. No fever or chills. Reason For Visit: ACUTE COPD EXACERBATION, MULTIPLE CO-MORBID Physical Exam Vital Signs: Temp Pulse Resp BP Pulse Ox 98.1 F 78 18 137/58 H 96 02/11/19 15:13 02/11/19 16:16 02/11/19 16:16 02/11/19 15:13 02/11/19 16:16 Intake & Output 02/10/19 02/11/19 02/12/19 06:59 06:59 06:59 Intake Total 680 118 577 Output Total 1050 1 Balance 680 -932 576 Weight 83.5 kg 84.8 kg Physical Exam: General appearance: PRESENT: no acute distress, obese Head exam: PRESENT: atraumatic, normocephalic Eye exam: PRESENT: conjunctiva pink. ABSENT: pallor, scleral icterus Ear exam: PRESENT: normal external ear exam Mouth exam: PRESENT: moist Respiratory exam: PRESENT: decreased breath sounds, rhonchi - minimal, end expiratory phase Cardiovascular exam: PRESENT: RRR. ABSENT: diastolic murmur, rubs, systolic murmur GI/Abdominal exam: PRESENT: normal bowel sounds, soft. ABSENT: distended, guarding, mass, organomegaly, rebound, tenderness Extremities exam: ABSENT: pedal edema Neurological exam: PRESENT: alert, awake, oriented to person, oriented to place, oriented to time, oriented to situation, CN II-XII grossly intact. ABSENT: motor sensory deficit Psychiatric exam: PRESENT: appropriate affect, normal mood. ABSENT: homicidal ideation, suicidal ideation Skin exam: PRESENT: dry, warm Results Laboratory Results: 02/11/19 04:30 02/11/19 04:30 02/11/19 02/11/19 04:30 04:30 WBC 17.3 H RBC 3.16 L Hgb 9.8 L Hct 28.7 L MCV 91 MCH 31.0 MCHC 34.1 RDW 13.2 Plt Count 272 Seg Neutrophils % Not Reportable Lymphocytes % Not Reportable Monocytes % Not Reportable Eosinophils % Not Reportable Basophils % Not Reportable Absolute Neutrophils Not Reportable Absolute Lymphocytes Not Reportable Absolute Monocytes Not Reportable Absolute Eosinophils Not Reportable Absolute Basophils Not Reportable Sodium 143.0 Potassium 4.7 Chloride 108 H Carbon Dioxide 30 Anion Gap 5 BUN 59 H Creatinine 1.31 H Est GFR ( Amer) 48 L Est GFR (Non-Af Amer) 39 L Glucose 235 H Calcium 9.5 Total Bilirubin 0.4 AST 50 H ALT 78 H Alkaline Phosphatase 77 Total Protein 5.6 L Albumin 3.1 L 02/05/19 19:07 Blood Blood Culture - Final NO GROWTH IN 5 DAYS 02/05/19 02/05/19 02/05/19 11:35 16:46 19:07 Creatine Kinase 36 CK-MB (CK-2) Troponin I 0.030 0.028 02/05/19 02/06/19 02/06/19 19:07 01:11 01:11 Creatine Kinase 50 CK-MB (CK-2) 1.01 1.42 Troponin I 0.023 0.020 02/06/19 02/06/19 07:37 07:37 Creatine Kinase 58 CK-MB (CK-2) 1.62 Troponin I 0.022 Impressions: Chest X-Ray 02/05/19 11:43 IMPRESSION: NO ACUTE RADIOGRAPHIC FINDING IN THE CHEST. Assessment & Plan - Diagnosis (1) Acute hypercapnic respiratory failure Is this a current diagnosis for this admission?: Yes (2) Acute exacerbation of chronic obstructive airways disease Is this a current diagnosis for this admission?: Yes (3) T2DM (type 2 diabetes mellitus) Qualifiers: Diabetes mellitus assisted insulin use: without assisted use Diabetes mellitus complication status: with kidney complications Diabetes mellitus complication detail: with chronic kidney disease Chronic kidney disease stage: stage 3 (moderate) Qualified Code(s): E11.22 - Type 2 diabetes mellitus with diabetic chronic kidney disease; N18.3 - Chronic kidney disease, stage 3 (moderate) Is this a current diagnosis for this admission?: Yes (4) Chronic kidney disease, stage 3 Is this a current diagnosis for this admission?: Yes - Time Time Spent with patient: 25-34 minutes Medications reviewed and adjusted accordingly: Yes Anticipated discharge: Home with Homehealth Within: Other - Inpatient Certification Based on my medical assessment, after consideration of the patient's comorbidities, presenting symptoms, or acuity I expect that the services needed warrant INPATIENT care.: Yes I certify that my determination is in accordance with my understanding of Medicare's requirements for reasonable and necessary INPATIENT services [42 CFR 412.3e].: Yes Medical Necessity: Significant Comorbidiites Make Outpatient Treatment Too Risky, Need Close Monitoring Due to Risk of Patient Decompensation, Need For Continuous Telemetry Monitoring, Need for Nebulizer Therapy and Monitoring of Response, Risk of Complication if Not Cared For in Hospital, Risk of Diagnosis Which Will Require Inpatient Eval/Care/Monitoring Post Hospital Care: D/C Filler And Trimmer Documentation - Plan Summary Plan Summary: D/C Furosemide and monitor fluid balance. Decrease IV Solu Medrol to 30 mg q12 hours. Continue all other current medication management.
[2019-02-11] MEDS: AMLODIPINE BESYLATE 5 MG TABLET PO SCH (17:20)
[2019-02-11] MEDS: VENLAFAXINE HCL 75 MG CAP.SR.24H PO SCH (17:20)
[2019-02-11] MEDS: RIVAROXABAN 15 MG TABLET PO SCH (17:20)
[2019-02-11 19:39] LABS: ARTERIAL BLOOD BASE EXCESS 4.9 mmol/L; ARTERIAL BLOOD FIO2 21; ARTERIAL BLOOD H2CO3 1.32 mmol/L (1.05-1.35); ARTERIAL BLOOD HCO3 29.5 mmol/L (20-24); ARTERIAL BLOOD O2 SATURATION 83.5 % (94-98); ARTERIAL BLOOD PCO2 43.8 mmHg (35-45); ARTERIAL BLOOD PH 7.45 (7.35-7.45); ARTERIAL BLOOD PO2 45.9 mmHg (80-100); ARTERIAL BLOOD TOTAL CO2 30.8 mmol/L (21-25)
[2019-02-11] MEDS: ATORVASTATIN CALCIUM 40 MG TABLET PO SCH (22:54)
[2019-02-12] MEDS: IPRATROPIUM/ALBUTEROL 0.5-2.5 MG/3 ML AMPUL NEB SCH ×6 (00:25→20:10)
[2019-02-12] MEDS: INSULIN LISPRO 100 UNIT/ML 3 ML VIAL SUBCUT SCH ×4 (08:10→22:56)
[2019-02-12] MEDS: MULTIVIT-STRESS FORMULA/ZINC TABLET PO SCH (09:49)
[2019-02-12] MEDS: METOPROLOL SUCCINATE 50 MG TAB.SR.24H PO SCH (09:49)
[2019-02-12] MEDS: CALCIUM CARBONATE 250 MG/VITAMIN D3 125 UNIT TABLET PO SCH (09:49)
[2019-02-12] MEDS: LISINOPRIL 10 MG TABLET PO SCH (09:49)
[2019-02-12] MEDS: PREGABALIN 75 MG CAPSULE PO SCH ×2 (09:49→22:57)
[2019-02-12] MEDS: METHYLPREDNISOLONE INJ 40 MG/1 ML SDV IV SCH (09:50)
[2019-02-12] MEDS: UMECLIDINIUM IH SCH (10:29)
[2019-02-12] MEDS: VILANTEROL IH SCH (10:29)
[2019-02-12] MEDS: [UNRECOGNIZED DRUG - OTHER] IH SCH (10:29)
[2019-02-12] MEDS: VENLAFAXINE HCL 75 MG CAP.SR.24H PO SCH (17:08)
[2019-02-12] MEDS: RIVAROXABAN 15 MG TABLET PO SCH (17:08)
[2019-02-12] MEDS: AMLODIPINE BESYLATE 5 MG TABLET PO SCH (17:08)
--- NOTE | 2019-02-12 18:47 | PDOC PROGRESS REPORT ---
Subjective Progress Note for:: 02/12/19 Subjective:: Patient seen by the bedside, she is more alert today compared to previous days, she is very deconditioned Reason For Visit: ACUTE COPD EXACERBATION, MULTIPLE CO-MORBID Physical Exam Vital Signs: Temp Pulse Resp BP Pulse Ox 98.2 F 76 18 135/56 H 97 02/12/19 15:37 02/12/19 16:00 02/12/19 16:00 02/12/19 15:37 02/12/19 16:00 Intake & Output 02/11/19 02/12/19 02/13/19 06:59 06:59 06:59 Intake Total 118 1350 Output Total 1050 251 Balance -932 1099 Weight 84.8 kg 84.7 kg General appearance: PRESENT: no acute distress Eye exam: PRESENT: PERRLA Respiratory exam: PRESENT: decreased breath sounds Cardiovascular exam: PRESENT: +S1, +S2 GI/Abdominal exam: PRESENT: soft Neurological exam: PRESENT: alert Results Laboratory Results: 02/11/19 04:30 02/11/19 04:30 02/11/19 18:46 Carbonic Acid 1.32 HCO3/H2CO3 Ratio 22:1 ABG pH 7.45 ABG pCO2 43.8 ABG pO2 45.9 L ABG HCO3 29.5 H ABG O2 Saturation 83.5 L ABG Base Excess 4.9 FiO2 21 02/05/19 02/05/19 02/05/19 11:35 16:46 19:07 Creatine Kinase 36 CK-MB (CK-2) Troponin I 0.030 0.028 02/05/19 02/06/19 02/06/19 19:07 01:11 01:11 Creatine Kinase 50 CK-MB (CK-2) 1.01 1.42 Troponin I 0.023 0.020 02/06/19 02/06/19 07:37 07:37 Creatine Kinase 58 CK-MB (CK-2) 1.62 Troponin I 0.022 Impressions: Chest X-Ray 02/05/19 11:43 IMPRESSION: NO ACUTE RADIOGRAPHIC FINDING IN THE CHEST. Assessment & Plan - Diagnosis (1) Acute hypercapnic respiratory failure Is this a current diagnosis for this admission?: Yes (2) COPD exacerbation Is this a current diagnosis for this admission?: Yes Plan: Discontinue IV Solu-Medrol start prednisone 20 mg (3) Chronic kidney disease, stage 3 Is this a current diagnosis for this admission?: Yes (4) T2DM (type 2 diabetes mellitus) Qualifiers: Diabetes mellitus paving and surfacing labourer insulin use: without paving and surfacing labourer use Diabetes mellitus complication status: with kidney complications Diabetes mellitus complication detail: with chronic kidney disease Chronic kidney disease stage: stage 3 (moderate) Qualified Code(s): E11.22 - Type 2 diabetes mellitus with diabetic chronic kidney disease; N18.3 - Chronic kidney disease, stage 3 (moderate) Is this a current diagnosis for this admission?: Yes (5) Acute hypoxemic respiratory failure Is this a current diagnosis for this admission?: Yes Plan: Continue oxygen via nasal cannula
[2019-02-12] MEDS: ATORVASTATIN CALCIUM 40 MG TABLET PO SCH (22:57)
[2019-02-13] MEDS: IPRATROPIUM/ALBUTEROL 0.5-2.5 MG/3 ML AMPUL NEB SCH ×4 (02:11→20:01)
[2019-02-13] MEDS: INSULIN LISPRO 100 UNIT/ML 3 ML VIAL SUBCUT SCH ×4 (07:50→22:17)
[2019-02-13] MEDS: METOPROLOL SUCCINATE 50 MG TAB.SR.24H PO SCH (09:05)
[2019-02-13] MEDS: PREDNISONE 20 MG TABLET PO SCH (09:05)
[2019-02-13] MEDS: LISINOPRIL 10 MG TABLET PO SCH (09:05)
[2019-02-13] MEDS: PREGABALIN 75 MG CAPSULE PO SCH ×2 (09:06→22:16)
[2019-02-13] MEDS: CALCIUM CARBONATE 250 MG/VITAMIN D3 125 UNIT TABLET PO SCH (09:06)
[2019-02-13] MEDS: MULTIVIT-STRESS FORMULA/ZINC TABLET PO SCH (09:06)
[2019-02-13] MEDS: [UNRECOGNIZED DRUG - OTHER] IH SCH (09:07)
[2019-02-13] MEDS: UMECLIDINIUM IH SCH (09:07)
[2019-02-13] MEDS: VILANTEROL IH SCH (09:07)
[2019-02-13] MEDS: AMLODIPINE BESYLATE 5 MG TABLET PO SCH (17:04)
[2019-02-13] MEDS: RIVAROXABAN 15 MG TABLET PO SCH (17:04)
[2019-02-13] MEDS: VENLAFAXINE HCL 75 MG CAP.SR.24H PO SCH (17:06)
--- NOTE | 2019-02-13 18:33 | PDOC PROGRESS REPORT ---
Subjective Progress Note for:: 02/13/19 Subjective:: Patient was seen by the bedside, she has shown significant improvement in her symptoms, hopefully she could be discharged home tomorrow Reason For Visit: ACUTE COPD EXACERBATION, MULTIPLE CO-MORBID Physical Exam Vital Signs: Temp Pulse Resp BP Pulse Ox 97.7 F 72 15 120/58 L 93 02/13/19 11:14 02/13/19 14:07 02/13/19 14:07 02/13/19 11:14 02/13/19 14:07 Intake & Output 02/12/19 02/13/19 02/14/19 06:59 06:59 06:59 Intake Total 1350 1245 Output Total 251 900 Balance 1099 345 Weight 84.7 kg 84.7 kg General appearance: PRESENT: no acute distress Eye exam: PRESENT: PERRLA Respiratory exam: PRESENT: wheezes Cardiovascular exam: PRESENT: +S1, +S2 GI/Abdominal exam: PRESENT: soft Neurological exam: PRESENT: alert, CN II-XII grossly intact Results Laboratory Results: 02/11/19 04:30 02/11/19 04:30 02/05/19 02/05/19 02/05/19 11:35 16:46 19:07 Creatine Kinase 36 CK-MB (CK-2) Troponin I 0.030 0.028 02/05/19 02/06/19 02/06/19 19:07 01:11 01:11 Creatine Kinase 50 CK-MB (CK-2) 1.01 1.42 Troponin I 0.023 0.020 02/06/19 02/06/19 07:37 07:37 Creatine Kinase 58 CK-MB (CK-2) 1.62 Troponin I 0.022 Impressions: Chest X-Ray 02/05/19 11:43 IMPRESSION: NO ACUTE RADIOGRAPHIC FINDING IN THE CHEST. Assessment & Plan - Diagnosis (1) Acute hypercapnic respiratory failure Is this a current diagnosis for this admission?: Yes (2) COPD exacerbation Is this a current diagnosis for this admission?: Yes (3) Chronic kidney disease, stage 3 Is this a current diagnosis for this admission?: Yes (4) T2DM (type 2 diabetes mellitus) Qualifiers: Diabetes mellitus senior living insulin use: without terminal gauger use Diabetes mellitus complication status: with kidney complications Diabetes mellitus complication detail: with chronic kidney disease Chronic kidney disease stage: stage 3 (moderate) Qualified Code(s): E11.22 - Type 2 diabetes mellitus with diabetic chronic kidney disease; N18.3 - Chronic kidney disease, stage 3 (moderate) Is this a current diagnosis for this admission?: Yes (5) Acute hypoxemic respiratory failure Is this a current diagnosis for this admission?: Yes - Plan Summary Plan Summary: Continue treatment
[2019-02-13 18:52] LABS: HEMATOCRIT 29.3 % (36.0-47.0); HEMOGLOBIN 10.1 g/dL (12.0-15.5); MEAN CORPUSCULAR HEMOGLOBIN 31.4 pg (27.0-33.4); MEAN CORPUSCULAR HGB CONC 34.5 g/dL (32.0-36.0); MEAN CORPUSCULAR VOLUME 91 fl (80-97); PLATELET COUNT 199 10^3/uL (150-450); RED BLOOD COUNT 3.22 10^6/uL (3.72-5.28); RED CELL DISTRIBUTION WIDTH 13.2 % (11.5-14.0); WHITE BLOOD COUNT 16.5 10^3/uL (4.0-10.5)
[2019-02-13 19:05] LABS: ALANINE AMINOTRANSFERASE 75 U/L (9-52); ALBUMIN 2.9 g/dL (3.5-5.0); ALKALINE PHOSPHATASE 66 U/L (38-126); ASPARTATE AMINO TRANSFERASE 34 U/L (14-36); BILIRUBIN,DIRECT 0.2 mg/dL (0.0-0.4); BILIRUBIN,TOTAL 0.5 mg/dL (0.2-1.3); BLOOD UREA NITROGEN 44 mg/dL (7-20); CALCIUM 9.5 mg/dL (8.4-10.2); CARBON DIOXIDE 31 mmol/L (22-30); CHLORIDE 107 mmol/L (98-107); GLUCOSE 233 mg/dL (75-110); POTASSIUM 4.5 mmol/L (3.6-5.0); TOTAL PROTEIN 5.3 g/dL (6.3-8.2)
[2019-02-13 19:10] LABS: SODIUM 140.7 mmol/L (137-145)
[2019-02-13 19:13] LABS: ANION GAP 3 (5-19)
[2019-02-13 19:16] LABS: ABSOLUTE LYMPHOCYTES# (MANUAL) 1.3 10^3/uL (0.5-4.7); ABSOLUTE MONOCYTES # (MANUAL) 0.5 10^3/uL (0.1-1.4); ABSOLUTE NEUTROPHILS# (MANUAL) 14.7 10^3/uL (1.7-8.2); BAND NEUTROPHILS % (MANUAL) 2 % (3-5); BASOPHILS % (MANUAL) 0 % (0-2); EOSINOPHILS % (MANUAL) 0 % (0-6); LYMPHOCYTES % (MANUAL) 6 % (13-45); MONOCYTES % (MANUAL) 3 % (3-13); SEGMENTED NEUTROPHILS % (MAN) 87 % (42-78); TOTAL CELLS COUNTED 100
[2019-02-13 19:18] LABS: HYPOCHROMASIA SLIGHT; PLATELET COMMENT ADEQUATE; TOXIC GRANULATION SLIGHT
[2019-02-13] MEDS: ATORVASTATIN CALCIUM 40 MG TABLET PO SCH (22:16)
[2019-02-14] MEDS: IPRATROPIUM/ALBUTEROL 0.5-2.5 MG/3 ML AMPUL NEB SCH ×3 (01:53→14:15)
[2019-02-14] MEDS: INSULIN LISPRO 100 UNIT/ML 3 ML VIAL SUBCUT SCH ×3 (08:34→17:10)
[2019-02-14] MEDS: MULTIVIT-STRESS FORMULA/ZINC TABLET PO SCH (10:46)
[2019-02-14] MEDS: [UNRECOGNIZED DRUG - OTHER] IH SCH (10:46)
[2019-02-14] MEDS: VILANTEROL IH SCH (10:46)
[2019-02-14] MEDS: UMECLIDINIUM IH SCH (10:46)
[2019-02-14] MEDS: PREGABALIN 75 MG CAPSULE PO SCH (10:47)
[2019-02-14] MEDS: METOPROLOL SUCCINATE 50 MG TAB.SR.24H PO SCH (10:47)
[2019-02-14] MEDS: LISINOPRIL 10 MG TABLET PO SCH (10:47)
[2019-02-14] MEDS: CALCIUM CARBONATE 250 MG/VITAMIN D3 125 UNIT TABLET PO SCH (10:47)
[2019-02-14] MEDS: PREDNISONE 20 MG TABLET PO SCH (10:47)
[2019-02-14 16:21] VITALS: BP 141/53
[2019-02-14] MEDS: AMLODIPINE BESYLATE 5 MG TABLET PO SCH (17:11)
[2019-02-14] MEDS: RIVAROXABAN 15 MG TABLET PO SCH (17:11)
[2019-02-14] MEDS: VENLAFAXINE HCL 75 MG CAP.SR.24H PO SCH (17:11)
--- NOTE | 2019-02-14 17:40 | PDOC DISCHARGE SUMMARY ---
General - Admit/Disc Date/PCP Admission Date/Primary Care Provider: 02/05/19 12:29 SONNY MARTÍNEZ MD Discharge Date: 02/14/19 - Discharge Diagnosis (1) Acute hypercapnic respiratory failure Is this a current diagnosis for this admission?: Yes (2) COPD exacerbation Is this a current diagnosis for this admission?: Yes (3) Chronic kidney disease, stage 3 Is this a current diagnosis for this admission?: Yes (4) T2DM (type 2 diabetes mellitus) Is this a current diagnosis for this admission?: Yes (5) Acute hypoxemic respiratory failure Is this a current diagnosis for this admission?: Yes - Additional Information Resuscitation Status: Do Not Resuscitate Prescriptions: Prednisone [Deltasone 20 mg Tablet] 20 mg PO DAILY #3 tablet Home Medications: Acetaminophen [Tylenol Extra Strength 500 mg Tablet] 500 mg PO Q4HP PRN 02/05/19 Amlodipine Besylate [Norvasc 5 mg Tablet] 5 mg PO QPM 02/05/19 Atorvastatin Calcium [Lipitor 40 mg Tablet] 40 mg PO QHS 02/05/19 Calcium Carbonate/Vitamin D3 [Calcium 500-Vit D3 200 Tablet] 1 tab PO DAILY 02/05/19 Lisinopril [Prinivil 40 mg Tablet] 40 mg PO DAILY 02/05/19 Metoprolol Succinate [Toprol XL 100 mg Tablet] 100 mg PO DAILY 02/05/19 Pregabalin [Lyrica 75 mg Capsule] 75 mg PO Q12 02/05/19 Rivaroxaban [Xarelto 15 mg Tablet] 15 mg PO QPM 02/05/19 Umeclidinium Brm/Vilanterol Tr [Anoro Ellipta 62.5-25 Mcg INH] 1 puff IH DAILY 02/05/19 Venlafaxine HCl [Venlafaxine HCl ER] 150 mg PO QPM 02/05/19 Prednisone [Deltasone 20 mg Tablet] 20 mg PO DAILY #3 tablet 02/14/19 History of Present Illness History of Present Illness: VAISHNAVI CHAVEZ is a 78 year old femaleShe has multiple comorbid conditions including chronic obstructive pulmonary disease, tobacco dependence, peripheral vascular disease, type 2 diabetes mellitus, a recalcitrant smoker. She came to the office for evaluation of respiratory symptoms including cough, shortness of breath, wheezing. She could hardly walk in the office, she was supported and assisted with a wheelchair to the nurses station and to the consultation room for evaluation by me. She could hardly talk because she was very short of breath there was diffuse expiratory wheeze on auscultation of her chest, she was admitted directly from the office to the hospital but no bed was available she was referred to the emergency room on the advice of the nursing bailer tenders supervisor., She was evaluated in the ER, chest x-ray was done, blood culture was taken the arterial blood gas on FiO2 3 L, pH 7.37, PO2 91.7, bicarbonate 27.1, oxygen saturation 96.7, PCO2 48.2 arterial blood gases consistent with respiratory acidosis with relative hypoxemia Hospital Course Hospital Course: Patient was admitted for the management of acute hypercapnic and hypoxemic respiratory failure due to acute COPD exacerbation.She was treated with intravenous Solu-Medrol, initially the blood culture was positive for gram- positive cocci in clusters, Staphylococcus species the exact pathogen was not known she was empirically treated with IV vancomycin because of the possibility of MRSA the final culture result was staph epidermidis in 1 bottle felt to be due to contaminationShe was treated with bronchodilators, DuoNeb Physical Exam Vital Signs: Temp Pulse Resp BP Pulse Ox 98.4 F 84 16 141/53 H 93 02/14/19 15:46 02/14/19 15:46 02/14/19 15:46 02/14/19 15:46 02/14/19 15:46 Intake & Output 02/13/19 02/14/19 02/15/19 06:59 06:59 06:59 Intake Total 1245 1791 Output Total 900 1150 Balance 345 641 Weight 84.7 kg 85.6 kg General appearance: PRESENT: no acute distress, well-developed, well-nourished Head exam: PRESENT: atraumatic, normocephalic Eye exam: PRESENT: conjunctiva pink, EOMI, PERRLA Ear exam: PRESENT: normal external ear exam Mouth exam: PRESENT: moist, tongue midline Neck exam: PRESENT: full ROM Cardiovascular exam: PRESENT: RRR, +S1 Vascular exam: PRESENT: normal capillary refill GI/Abdominal exam: PRESENT: normal bowel sounds, soft Rectal exam: PRESENT: deferred Neurological exam: PRESENT: alert, CN II-XII grossly intact Psychiatric exam: PRESENT: appropriate affect, normal mood Skin exam: PRESENT: dry, intact, warm. ABSENT: cyanosis, rash Results Laboratory Results: 02/13/19 18:42 02/13/19 18:42 02/13/19 02/13/19 18:42 18:42 WBC 16.5 H RBC 3.22 L Hgb 10.1 L Hct 29.3 L MCV 91 MCH 31.4 MCHC 34.5 RDW 13.2 Plt Count 199 Seg Neutrophils % Not Reportable Lymphocytes % Not Reportable Monocytes % Not Reportable Eosinophils % Not Reportable Basophils % Not Reportable Absolute Neutrophils Not Reportable Absolute Lymphocytes Not Reportable Absolute Monocytes Not Reportable Absolute Eosinophils Not Reportable Absolute Basophils Not Reportable Sodium 140.7 Potassium 4.5 Chloride 107 Carbon Dioxide 31 H Anion Gap 3 L BUN 44 H Creatinine 1.15 Est GFR ( Amer) 56 L Est GFR (Non-Af Amer) 46 L Glucose 233 H Calcium 9.5 Total Bilirubin 0.5 AST 34 ALT 75 H Alkaline Phosphatase 66 Total Protein 5.3 L Albumin 2.9 L 02/05/19 02/05/19 02/05/19 11:35 16:46 19:07 Creatine Kinase 36 CK-MB (CK-2) Troponin I 0.030 0.028 02/05/19 02/06/19 02/06/19 19:07 01:11 01:11 Creatine Kinase 50 CK-MB (CK-2) 1.01 1.42 Troponin I 0.023 0.020 02/06/19 02/06/19 07:37 07:37 Creatine Kinase 58 CK-MB (CK-2) 1.62 Troponin I 0.022 Impressions: Chest X-Ray 02/05/19 11:43 IMPRESSION: NO ACUTE RADIOGRAPHIC FINDING IN THE CHEST. Qualifiers - * PATIENT BEING DISCHARGED WITH ANY OF THE FOLLOWING DIAGNOSIS: No
== END 2019-02-14 17:20 | disposition home or self-care (01) | DRG 189 ==
LOC: ER 11:15 → EH 12:29 → 3W 19:58
PROVIDERS: ADMIT Internal Medicine; ATTEND Internal Medicine
PROC: 3E0F73Z Introduction of Anti-inflammatory into Respiratory Tract, Via Natural or Artificial Opening (ICD-10-PCS; principal; 2019-02-05)
DX: J96.02 Acute respiratory failure with hypercapnia (principal); J44.1 Chronic obstructive pulmonary disease with (acute) exacerbation; J96.01 Acute respiratory failure with hypoxia; E78.5 Hyperlipidemia, unspecified; I12.9 Hypertensive chronic kidney disease with stage 1 through stage 4 chronic kidney disease, or unspecified chronic kidney disease; F32.9 Major depressive disorder, single episode, unspecified; I71.4 Abdominal aortic aneurysm, without rupture; K21.9 Gastro-esophageal reflux disease without esophagitis; F17.210 Nicotine dependence, cigarettes, uncomplicated; E11.51 Type 2 diabetes mellitus with diabetic peripheral angiopathy without gangrene; F17.200 Nicotine dependence, unspecified, uncomplicated; F41.9 Anxiety disorder, unspecified; N18.3 Chronic kidney disease, stage 3 (moderate); E11.22 Type 2 diabetes mellitus with diabetic chronic kidney disease; Z86.718 Personal history of other venous thrombosis and embolism; Z79.899 Other long term (current) drug therapy; Z66 Do not resuscitate; Z79.02 Long term (current) use of antithrombotics/antiplatelets
CPT/HCPCS: 36415; 36600; 71045; 80048; 80053; 80061; 80076; 80202; 80307; 81001; 82140; 82150; 82550; 82553; 82803; 82962; 83036; 83690; 83735; 83970; 84100; 84439; 84443; 84484; 85025; 85610; 85730; 87040; 87077; 87086; 87186; 93005; 93010; 94640; 96374; 99285; J1815; J2920; J2930; J3370; J3490; J7060; J7512; J7620

== ENCOUNTER → 2019-02-22 | Outpatient (CLI) | payer MEDICARE, OTHER ==
[2019-02-22 09:22] LABS: HEMATOCRIT 28.1 % (36.0-47.0); HEMOGLOBIN 9.5 g/dL (12.0-15.5); MEAN CORPUSCULAR HEMOGLOBIN 31.3 pg (27.0-33.4); MEAN CORPUSCULAR HGB CONC 33.9 g/dL (32.0-36.0); MEAN CORPUSCULAR VOLUME 92 fl (80-97); PLATELET COUNT 138 10^3/uL (150-450); RED BLOOD COUNT 3.05 10^6/uL (3.72-5.28); RED CELL DISTRIBUTION WIDTH 14.3 % (11.5-14.0); WHITE BLOOD COUNT 10.3 10^3/uL (4.0-10.5)
[2019-02-22 09:41] LABS: BLOOD UREA NITROGEN 24 mg/dL (7-20); CALCIUM 9.7 mg/dL (8.4-10.2); GLUCOSE 122 mg/dL (75-110); PHOSPHORUS 4.2 mg/dL (2.5-4.5); POTASSIUM 4.6 mmol/L (3.6-5.0)
[2019-02-22 09:46] LABS: CARBON DIOXIDE 29 mmol/L (22-30); CHLORIDE 107 mmol/L (98-107); SODIUM 138.4 mmol/L (137-145)
[2019-02-22 09:55] LABS: ANION GAP 2 (5-19)
== END ==
LOC: LAB 08:43
PROVIDERS: ATTEND Internal Medicine Nephrology
DX: E11.22 Type 2 diabetes mellitus with diabetic chronic kidney disease (principal); I12.9 Hypertensive chronic kidney disease with stage 1 through stage 4 chronic kidney disease, or unspecified chronic kidney disease; N18.4 Chronic kidney disease, stage 4 (severe); E87.5 Hyperkalemia; R60.9 Edema, unspecified
CPT/HCPCS: 36415; 80048; 83970; 84100; 85027

== ENCOUNTER → 2019-03-01 | Outpatient (CLI) | payer MEDICARE, OTHER ==
[2019-03-01 10:26] LABS: HEMATOCRIT 27.2 % (36.0-47.0); HEMOGLOBIN 9.3 g/dL (12.0-15.5); MEAN CORPUSCULAR HEMOGLOBIN 31.5 pg (27.0-33.4); MEAN CORPUSCULAR HGB CONC 34.3 g/dL (32.0-36.0); MEAN CORPUSCULAR VOLUME 92 fl (80-97); PLATELET COUNT 143 10^3/uL (150-450); RED BLOOD COUNT 2.96 10^6/uL (3.72-5.28); WHITE BLOOD COUNT 6.2 10^3/uL (4.0-10.5)
[2019-03-01 10:50] LABS: IRON(TIBC) 58.9 ug/dL (37-170)
== END ==
LOC: LAB 09:59
PROVIDERS: ATTEND Physician Assistant Medical
DX: N17.9 Acute kidney failure, unspecified (principal); I12.9 Hypertensive chronic kidney disease with stage 1 through stage 4 chronic kidney disease, or unspecified chronic kidney disease; N18.3 Chronic kidney disease, stage 3 (moderate); E11.22 Type 2 diabetes mellitus with diabetic chronic kidney disease; D63.1 Anemia in chronic kidney disease; R60.9 Edema, unspecified
CPT/HCPCS: 36415; 82728; 83540; 83550; 85027

== ENCOUNTER → 2020-04-10 | Outpatient (CLI) | payer MEDICARE, OTHER ==
[~2020-04-10] MED LIST: AMINOPHYLLINE INJ/PF 250 MG/10 ML SDV IV ONE; REGADENOSON INJ 0.4 MG/5 ML DISP.SYRIN IV ONE
== END ==
LOC: RAD 06:54
PROVIDERS: ATTEND Internal Medicine
DX: R07.9 Chest pain, unspecified (principal)
CPT/HCPCS: 93017; 78452; A9500; J2785; J0280; Q9969